=== PATIENT | male | born 1950 | race Caucasian/White ===

== ENCOUNTER 2017-09-17 09:02 | Day surgery (SDC) | payer MEDICARE, OTHER ==
[~2017-09-17] VITALS: Ht 177.8 cm; Wt 54.5 kg
[2017-09-17 09:18] VITALS: BP 77/53; PULSE 83; RESP 20; TEMP 97.7; O2SAT 99
[2017-09-17] MEDS ORDERED: FERR300S PO (09:28)
[2017-09-17] MEDS ORDERED: MELA5 PO (09:28)
[2017-09-17] MEDS ORDERED: DIPH25TA5 PO (09:28)
[2017-09-17] MEDS ORDERED: ERGO2000 PO (09:28)
[2017-09-17] MEDS ORDERED: LACT10SO PO (09:28)
[2017-09-17] MEDS ORDERED: VITA80003 PO (09:28)
[2017-09-17] MEDS ORDERED: ATOR20TA15 PO (09:28)
[2017-09-17] MEDS ORDERED: PROT40TA PO (09:28)
[2017-09-17] MEDS ORDERED: VITA200C3 PO (09:28)
[2017-09-17] MEDS ORDERED: SODIUM CHLOR 0.9% 1000 ML IV SCH (09:30)
[2017-09-17 10:03] LABS: AUTOMATED NEUTROPHIL # 3.9 TH/MM3 (1.8-7.7); BASOPHIL % 0.5 % (0.0-2.0); EOSINOPHIL # 0.1 TH/MM3 (0-0.4); EOSINOPHIL % 1.2 % (0.0-4.0); HEMATOCRIT 24.4 % (39.0-51.0); HEMOGLOBIN 8.8 GM/DL (13.0-17.0); LYMPH % 6.2 % (9.0-44.0); LYMPHOCYTE # 0.3 TH/MM3 (1.0-4.8); MEAN CELL VOLUME 93.4 FL (80.0-100.0); MEAN CORPUSCULAR HEMOGLOBIN 33.6 PG (27.0-34.0); MEAN PLATELET VOLUME 7.1 FL (7.0-11.0); MONO % 9.7 % (0.0-8.0); MONOCYTE # 0.5 TH/MM3 (0-0.9); NEUT % 82.4 % (16.0-70.0); PLATELET COUNT 42 TH/MM3 (150-450); RED BLOOD COUNT 2.61 MIL/MM3 (4.50-5.90); RED CELL DISTRIBUTION WIDTH 22.3 % (11.6-17.2); WHITE BLOOD COUNT 4.7 TH/MM3 (4.0-11.0)
== END 2017-09-17 10:45 | disposition home or self-care (01) ==
LOC: HRAD 09:02 → HRIP 09:06 → HRAD 10:45
PROVIDERS: ATTEND Internal Medicine Hematology & Oncology
DX: R16.0 Hepatomegaly, not elsewhere classified (principal); Z53.9 Procedure and treatment not carried out, unspecified reason
CPT/HCPCS: 85025; G0463; 99211

== ENCOUNTER 2017-09-26 07:51 | Inpatient (IN) | payer MEDICARE, OTHER ==
[~2017-09-26] VITALS: Ht 177.8 cm; Wt 75.3 kg
[2017-09-26] VITALS (25 sets, daily range): BP systolic 77–137; BP diastolic 41–84; PULSE 52–98; RESP 14–33; TEMP 94.3–98.9; O2SAT 96–100
[~2017-09-26 07:51] MED LIST: ATOR20TA15 PO; DIPH25TA5 PO; ERGO2000 PO; FERR300S PO; LACT10SO PO; MELA5 PO; PROT40TA PO; VITA200C3 PO; VITA80003 PO
[2017-09-26] MEDS ORDERED: PANTOPRAZOLE SODIUM 40 MG VIAL IVP ONE (08:15)
[2017-09-26] MEDS ORDERED: SODIUM CHLORIDE 0.9% FLUSH 10 ML FLUSH IV FLUSH PRN ×2 (08:15→10:00)
[2017-09-26] MEDS ORDERED: ONDANSETRON HCL 4 MG/2 ML VIAL IVP ONE (08:15)
--- NOTE | 2017-09-26 08:22 | PD ---
HPI Chief Complaint: GI Complaint Time Seen by Provider: 08:18 Travel History International Travel<30 days: No Contact w/Intl Traveler<30days: No Traveled to known affect area: No History of Present Illness HPI 67-year-old male patient with history of esophageal varices, ascites, recent diagnosis of hepatic cancer, following up with Dr. Nixon, here because of vomiting since last night, vomited maroon colored blood this morning according to his . He denies any abdominal pain, diarrhea, fevers, or other symptoms. He denies any black stools. Modifying Factors: None Associated Signs & Symptoms: Vomiting, vomiting blood Risk Factors: Esophageal varices, hepatic cancer, ascites PFSH Past Medical History Cancer: Yes (LIVER ) Cardiac Catheterization: Yes Cardiovascular Problems: Yes High Cholesterol: Yes Cirrhosis: Yes Coronary Artery Disease: Yes Diabetes: Yes Patient Takes Glucophage: No Diminished Hearing: No Gastrointestinal Disorders: Yes (esophageal varacies,ASCITES , PARACENTHESIS ) GERD: Yes Hypertension: Yes Immunizations Current: Yes Ulcer: Yes Tetanus Vaccination: Unknown Influenza Vaccination: Yes Past Surgical History Abdominal Surgery: Yes (inguinal hernia) Cardiac Surgery: Yes (heart stent December 2016) Coronary Stent: Yes (X1 12/2016) Ear Surgery: Yes (lasix ) Social History Alcohol Use: No Tobacco Use: No (QUIT 5 YEARS AGO ) Substance Use: No Allergies-Medications (Allergen,Severity, Reaction): Coded Allergies: spironolactone (Verified Adverse Reaction, Unknown, 09/26/17) BREAST TENDERNESS Reported Meds & Prescriptions Reported Meds & Active Scripts Active Reported Diphenhydramine HCl 25 Mg Tablet 1 Tab PO HS Vitamin E 200 Unit Cap 400 Units PO DAILY Melatonin 5 Mg Tab 5 Mg PO HS Vitamin A 8,000 Unit Capsule 1 Cap PO DAILY Vitamin D2 (Ergocalciferol) 2,000 Unit Tab 50,000 Units PO DIRECTED M-W- Lactulose Liq (Lactulose) 10 Gm/15 Ml Soln 30 Ml PO TID Protonix (Pantoprazole Sodium) 40 Mg Tab 40 Mg PO BID Review of Systems Except as stated in HPI: all other systems reviewed are Neg Physical Exam Narrative GENERAL: Well-developed elderly male patient currently in mild distress. Awake and oriented 3. SKIN: Focused skin assessment warm/dry. HEAD: Atraumatic. Normocephalic. EYES: Pupils equal and round. No scleral icterus. No injection or drainage. ENT: No nasal bleeding or discharge. Mucous membranes pink and moist. NECK: Trachea midline. No JVD. Supple. CARDIOVASCULAR: Regular rate and rhythm. No murmur appreciated. RESPIRATORY: No accessory muscle use. Clear to auscultation. Breath sounds equal bilaterally. GASTROINTESTINAL: Abdomen soft, non-tender, moderately distended. Hepatic and splenic margins not palpable. MUSCULOSKELETAL: No obvious deformities. No clubbing. No cyanosis. No edema. NEUROLOGICAL: Awake and alert. No obvious cranial nerve deficits. Motor grossly within normal limits. Normal speech. PSYCHIATRIC: Appropriate mood and affect; insight and judgment normal. Data Data Last Documented VS Vital Signs Date Time Temp Pulse Resp B/P (MAP) Pulse Ox O2 Delivery O2 Flow Rate FiO2 09/26/17 07:52 97.5 86 14 82/53 (63) 100 Orders Orders Complete Blood Count With Diff (09/26/17 08:12) Comprehensive Metabolic Panel (09/26/17 08:12) Lipase (09/26/17 08:12) Prothrombin Time / Inr (Pt) (09/26/17 08:12) Act Partial Throm Time (Ptt) (09/26/17 08:12) Urinalysis - C+S If Indicated (09/26/17 08:12) Iv Access Insert/Monitor (09/26/17 08:12) Ecg Monitoring (09/26/17 08:12) Oximetry (09/26/17 08:12) Ondansetron Inj (Zofran Inj) (09/26/17 08:15) Pantoprazole Inj (Protonix Inj) (09/26/17 08:15) Sodium Chloride 0.9% Flush (Ns Flush) (09/26/17 08:15) Sodium Chlor 0.9% 1000 Ml Inj (Ns 1000 M (09/26/17 08:30) Type And Screen (09/26/17 08:18) Red Blood Cells (Rbc) (09/26/17 08:37) Blood Product Administration (09/26/17 08:37) Sodium Chloride 0.9... W/Pantoprazole In (09/26/17 08:37) Platelet Pheresis (09/26/17 09:02) Blood Product Administration (09/26/17 09:02) Sodium Chlor 0.9% 250 Ml Inj (Ns 250 Ml (09/26/17 09:15) Admit Order (Ed Use Only) (09/26/17 09:31) Labs Laboratory Tests Test 09/26/17 08:12 White Blood Count 9.0 TH/MM3 Red Blood Count 1.86 MIL/MM3 Hemoglobin 6.3 GM/DL Hematocrit 17.7 % Mean Corpuscular Volume 95.2 FL Mean Corpuscular Hemoglobin 33.9 PG Mean Corpuscular Hemoglobin Concent 35.6 % Red Cell Distribution Width 23.0 % Platelet Count 59 TH/MM3 Mean Platelet Volume 7.6 FL Neutrophils (%) (Auto) 90.9 % Lymphocytes (%) (Auto) 3.4 % Monocytes (%) (Auto) 5.0 % Eosinophils (%) (Auto) 0.3 % Basophils (%) (Auto) 0.4 % Neutrophils # (Auto) 8.2 TH/MM3 Lymphocytes # (Auto) 0.3 TH/MM3 Monocytes # (Auto) 0.5 TH/MM3 Eosinophils # (Auto) 0.0 TH/MM3 Basophils # (Auto) 0.0 TH/MM3 CBC Comment AUTO DIFF Differential Comment AUTO DIFF CONFIRMED Platelet Estimate LOW Platelet Morphology Comment NORMAL Ovalocytes 1+ Prothrombin Time 13.7 SEC Prothromb Time International Ratio 1.4 RATIO Activated Partial Thromboplast Time 34.8 SEC Blood Urea Nitrogen 96 MG/DL Creatinine 4.34 MG/DL Random Glucose 144 MG/DL Total Protein 6.6 GM/DL Albumin 2.3 GM/DL Calcium Level 8.1 MG/DL Alkaline Phosphatase 157 U/L Aspartate Amino Transf (AST/SGOT) 33 U/L Alanine Aminotransferase (ALT/SGPT) 33 U/L Total Bilirubin 1.2 MG/DL Sodium Level 130 MEQ/L Potassium Level 4.1 MEQ/L Chloride Level 100 MEQ/L Carbon Dioxide Level 16.2 MEQ/L Anion Gap 14 MEQ/L Estimat Glomerular Filtration Rate 14 ML/MIN Lipase 196 U/L MDM Medical Decision Making Medical Screen Exam Complete: Yes Emergency Medical Condition: Yes Medical Record Reviewed: Yes Interpretation(s) Laboratory Tests Test 09/26/17 08:12 Red Blood Count 1.86 MIL/MM3 (4.50-5.90) Hemoglobin 6.3 GM/DL (13.0-17.0) Hematocrit 17.7 % (39.0-51.0) Red Cell Distribution Width 23.0 % (11.6-17.2) Platelet Count 59 TH/MM3 (150-450) Neutrophils (%) (Auto) 90.9 % (16.0-70.0) Lymphocytes (%) (Auto) 3.4 % (9.0-44.0) Neutrophils # (Auto) 8.2 TH/MM3 (1.8-7.7) Lymphocytes # (Auto) 0.3 TH/MM3 (1.0-4.8) Platelet Estimate LOW (NORMAL) Ovalocytes 1+ (NORMAL) Prothrombin Time 13.7 SEC (9.8-11.6) Activated Partial Thromboplast Time 34.8 SEC (24.3-30.1) Blood Urea Nitrogen 96 MG/DL (7-18) Creatinine 4.34 MG/DL (0.60-1.30) Random Glucose 144 MG/DL (74-106) Albumin 2.3 GM/DL (3.4-5.0) Calcium Level 8.1 MG/DL (8.5-10.1) Alkaline Phosphatase 157 U/L (45-117) Total Bilirubin 1.2 MG/DL (0.2-1.0) Sodium Level 130 MEQ/L (136-145) Carbon Dioxide Level 16.2 MEQ/L (21.0-32.0) Estimat Glomerular Filtration Rate 14 ML/MIN (>89) Differential Diagnosis Vomiting, vomiting blood: Gastritis versus gastroenteritis versus GI bleed Narrative Course Lab work shows significant anemia. According to patient's , his hemoglobin has been even lower before, and he is supposed to get a transfusion this morning and use marijuana. Patient was given IV fluids, Protonix, 2 units of PRBCs were ordered and platelets were ordered due to low platelet counts as well. At this point, my plan would be to admit him for further evaluation by GI as well. He was started on Protonix drip. Case is discussed with family practice resident service for admission. Diagnosis Primary Impression: GI bleed Additional Impressions: Anemia Thrombocytopenia Admitting Information Admitting Physician Requests: Admit Melinda Rivera MD Sep 26, 2017 08:22
[2017-09-26 08:30] LABS: AUTOMATED NEUTROPHIL # 8.2 TH/MM3 (1.8-7.7); BASOPHIL % 0.4 % (0.0-2.0); EOSINOPHIL % 0.3 % (0.0-4.0); LYMPH % 3.4 % (9.0-44.0); LYMPHOCYTE # 0.3 TH/MM3 (1.0-4.8); MEAN CELL VOLUME 95.2 FL (80.0-100.0); MEAN CORPUSCULAR HEMOGLOBIN 33.9 PG (27.0-34.0); MEAN CORPUSCULAR HGB CONC 35.6 % (32.0-36.0); MEAN PLATELET VOLUME 7.6 FL (7.0-11.0); MONOCYTE # 0.5 TH/MM3 (0-0.9); NEUT % 90.9 % (16.0-70.0); PLATELET COUNT 59 TH/MM3 (150-450); RED BLOOD COUNT 1.86 MIL/MM3 (4.50-5.90)
[2017-09-26] MEDS ORDERED: SODIUM CHLOR 0.9% 1000 ML INJ 1,000 ML IV ONE ×2 (08:30→14:00)
[2017-09-26 08:38] LABS: HEMATOCRIT 17.7 % (39.0-51.0); HEMOGLOBIN 6.3 GM/DL (13.0-17.0)
[2017-09-26 08:39] LABS: ALBUMIN 2.3 GM/DL (3.4-5.0); AST (GOT) 33 U/L (15-37); BICARBONATE 16.2 MEQ/L (21.0-32.0); BLOOD UREA NITROGEN 96 MG/DL (7-18); CALCIUM 8.1 MG/DL (8.5-10.1); CHLORIDE 100 MEQ/L (98-107); CREATININE 4.34 MG/DL (0.60-1.30); GLOMERULAR FILTRATION RATE 14 ML/MIN (>89); GLUCOSE,RANDOM 144 MG/DL (74-106); SODIUM (NA) 130 MEQ/L (136-145)
[2017-09-26 08:41] LABS: ALT (GPT) 33 U/L (12-78); INTERNATIONAL NORMALIZED RATIO 1.4 RATIO; PROTHROMBIN TIME - PATIENT 13.7 SEC (9.8-11.6)
[2017-09-26 08:42] LABS: ALKALINE PHOSPHATASE 157 U/L (45-117); TOTAL BILIRUBIN ADULT 1.2 MG/DL (0.2-1.0); TOTAL PROTEIN 6.6 GM/DL (6.4-8.2)
[2017-09-26 09:09] LABS: OVALOCYTES 1+ (NORMAL)
[2017-09-26] MEDS ORDERED: SODIUM CHLOR 0.9% 250 ML INJ 250 ML IV ONE (09:15)
--- NOTE | 2017-09-26 09:49 | HHI.HP ---
HPI Service Family Medicine Primary Care Physician Unknown Admission Diagnosis GI bleed/anemia Diagnoses: International Travel<30 Days: No Contact w/Intl Traveler<30days: No Known Affected Area: No History of Present Illness 67-year-old male patient with history of esophageal varices, ascites, recent diagnosis of hepatic cancer, following up with Dr. Nixon, presents to the ED with hematemesis Accompanied by , who provides all of the history. Reports that he has been weak and dizziness for the last couple of days. Had 2x episodes of maroon-colored vomiting, reports he vomited up about 1 cup each time. His blood pressure was 80/44 at home last night, but patient refused to go to the hospital. This morning when he woke up, he felt lightheaded while sitting on the toilet and yanked the towel bar out of the wall to catch himself. The sound woke his up. was concerned and brought patient immediately to the hospital. reports that he had an appointment to get transfused today, PET scan on Sunday, and liver biopsy next Sunday. Hemoglobin normally around mid 7s, lowest 3.7 per . He denies any abdominal pain, diarrhea, fevers, and melena. (Vida Beal MD R1) Review of Systems Constitutional: COMPLAINS OF: Weight loss (drop 50 lbs since december), DENIES: Fever Eyes: DENIES: Vision loss Ears, nose, mouth, throat: DENIES: Running Nose Respiratory: DENIES: Shortness of breath Cardiovascular: DENIES: Chest pain Gastrointestinal: COMPLAINS OF: Nausea, Vomiting, DENIES: Abdominal pain Genitourinary: DENIES: Dysuria Musculoskeletal: DENIES: Muscle aches Integumentary: DENIES: Rash Neurologic: COMPLAINS OF: Headache (Vida Beal MD R1) Past Family Social History Past Medical History Hepatocellular liver cancer with cholangio markers, MELD score of 28 Heavy drinker, quit 13 years ago HTN DM, was on metformin and glipizide, last Alc 5.4%, off meds for about 6months Esophageal varices bleed 4 years ago, was banded Past Surgical History Kidney removal when younger inguinal repair Rotator cuff repair right shoulder (Vida Beal MD R1) Allergies: Coded Allergies: spironolactone (Verified Adverse Reaction, Unknown, 2/14/18) BREAST TENDERNESS Family History Mom- hx of heart disease- living at 84 Brother- younger [place]- 49 Dad-86, living, bladder cancer Brother- 64, [place] living Social History Lives with in [facility]- 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 HEAD: Atraumatic. Normocephalic. No temporal or scalp tenderness. EYES: Pupils equal round and reactive. Extraocular motions intact. Pallor conjunctiva. No sclera iterus. ENT: Nose without bleeding, purulent drainage or septal hematoma. Throat without erythema, tonsillar hypertrophy or exudate. Uvula midline. Airway patent. NECK: Trachea midline. No JVD or lymphadenopathy. Supple, nontender, no meningeal signs. CARDIOVASCULAR: Regular rate and rhythm without murmurs, gallops, or rubs. RESPIRATORY: Clear to auscultation. Breath sounds equal bilaterally. No wheezes , rales, or rhonchi. GASTROINTESTINAL: Distended abdomen, ascites present, + BS MUSCULOSKELETAL: Extremities without clubbing, cyanosis, or edema. No joint tenderness, effusion, or edema noted. NEUROLOGICAL: Awake and alert. Cranial nerves II through XII intact. Motor and sensory grossly within normal limits. Five out of 5 muscle strength in all muscle groups. Normal speech. Laboratory Laboratory Tests Test 09/26/17 08:12 White Blood Count 9.0 Red Blood Count 1.86 Hemoglobin 6.3 Hematocrit 17.7 Mean Corpuscular Volume 95.2 Mean Corpuscular Hemoglobin 33.9 Mean Corpuscular Hemoglobin Concent 35.6 Red Cell Distribution Width 23.0 Platelet Count 59 Mean Platelet Volume 7.6 Neutrophils (%) (Auto) 90.9 Lymphocytes (%) (Auto) 3.4 Monocytes (%) (Auto) 5.0 Eosinophils (%) (Auto) 0.3 Basophils (%) (Auto) 0.4 Neutrophils # (Auto) 8.2 Lymphocytes # (Auto) 0.3 Monocytes # (Auto) 0.5 Eosinophils # (Auto) 0.0 Basophils # (Auto) 0.0 CBC Comment AUTO DIFF Differential Comment AUTO DIFF CONFIRMED Platelet Estimate LOW Platelet Morphology Comment NORMAL Ovalocytes 1+ Prothrombin Time 13.7 Prothromb Time International Ratio 1.4 Activated Partial Thromboplast Time 34.8 Blood Urea Nitrogen 96 Creatinine 4.34 Random Glucose 144 Total Protein 6.6 Albumin 2.3 Calcium Level 8.1 Alkaline Phosphatase 157 Aspartate Amino Transf (AST/SGOT) 33 Alanine Aminotransferase (ALT/SGPT) 33 Total Bilirubin 1.2 Sodium Level 130 Potassium Level 4.1 Chloride Level 100 Carbon Dioxide Level 16.2 Anion Gap 14 Estimat Glomerular Filtration Rate 14 Lipase 196 (Vida Beal MD R1) Result Diagram: 09/26/1781109/26/17811 Caprini VTE Risk Assessment Caprini VTE Risk Assessment: Mod/High Risk (score >= 2) Caprini Risk Assessment Model Point Value = 1 Point Value = 2 Point Value = 3 Point Value = 5 Age 41-60 Minor surgery BMI > 25 kg/m2 Swollen legs Varicose veins or History of unexplained or recurrent spontaneous Oral contraceptives or hormone replacement Sepsis (< 1 month) Serious lung disease, including pneumonia (< 1 month) Abnormal pulmonary function Acute myocardial infarction Congestive heart failure (< 1 month) History of inflammatory bowel disease Medical patient at bed rest Age 61-74 Arthroscopic surgery Major open surgery (> 45 min) Laparoscopic surgery (> 45 min) Malignancy Confined to bed (> 72 hours) Immobilizing plaster cast Central venous access Age >= 75 History of VTE Family history of VTE Factor V Leiden Prothrombin [id number] Lupus anticoagulant Anticardiolipin antibodies Elevated serum homocysteine Heparin-induced thrombocytopenia Other congenital or acquired thrombophilia Stroke (< 1 month) Elective arthroplasty Hip, pelvis, or leg fracture Acute spinal cord injury (< 1 month) Prophylaxis Regimen Total Risk Factor Score Risk Level Prophylaxis Regimen 0-1 Low Early ambulation 2 Moderate Order ONE of the following: *Sequential Compression Device (SCD) *Heparin 5000 units SQ BID 3-4 Higher Order ONE of the following medications: *Heparin 5000 units SQ TID *Enoxaparin/Lovenox 40 mg SQ daily (WT < 150 kg, CrCl > 30 mL/min) *Enoxaparin/Lovenox 30 mg SQ daily (WT < 150 kg, CrCl > 10-29 mL/min) *Enoxaparin/Lovenox 30 mg SQ BID (WT < 150 kg, CrCl > 30 mL/min) AND/OR *Sequential Compression Device (SCD) 5 or more Highest Order ONE of the following medications: *Heparin 5000 units SQ TID (Preferred with Epidurals) *Enoxaparin/Lovenox 40 mg SQ daily (WT < 150 kg, CrCl > 30 mL/min) *Enoxaparin/Lovenox 30 mg SQ daily (WT < 150 kg, CrCl > 10-29 mL/min) *Enoxaparin/Lovenox 30 mg SQ BID (WT < 150 kg, CrCl > 30 mL/min) AND *Sequential Compression Device (SCD) (Vida Beal MD R1) Assessment and Plan Assessment and Plan 67-year-old male patient with history of esophageal varices, ascites, recent diagnosis of hepatocellular carcinoma, following up with Dr. Nixon, presents to the ED with hematemesis. Patient transferred to ICU due to significant hypotension. Code Status DNR: after further discussion, agreeable to intubation for necessary EGD procedure Discussed Condition With Dr. Martini and Dr. Myers (Vida Beal MD R1) Attending Attestation Patient seen and examined. Case reviewed and discussed with the resident team. Agree with plan of care as discussed with me and documented in the resident note. Pt seen on admission in ED. He is very ill with his cirrhosis at baseline. Any bleeding can be extremely dangerous as his platelets are low and with a meld score of 28, there can be clotting problems regardless. Unfortunately, he became very hypotensive in the ED despite boluses of NS. His lowest pressures were 70s over 30s. His pulse was not rapid. [place] [facility] [place] care and monitoring. (Lala Myers MD) Problem List: (1) Upper GI bleed ICD Codes: K92.2 - Gastrointestinal hemorrhage, unspecified Plan: 2 day hx of hematemesis, suspected upper GI bleed H/H 6.3/17.7 Plt 59 AST/ALT wnl BP responsive after fluid boluses H/H q6h Type and Screen ordered 2 units of RBCs and 1 unit of plts ordered Octreotide Drip and Protonix drip ordered Rocephin 1,000mg IV q24h (started 09/26) Ondansetron for N/V NS IV 115mls/hr GI and Digital Music Instructor consulted, recommendations appreciated -EGD today, patient agreeable to intubation for procedure (2) Anemia ICD Codes: D64.9 - Anemia, unspecified Status: Acute Plan: Secondary to upper GI bleed See plan above (3) Thrombocytopenia ICD Codes: D69.6 - Thrombocytopenia, unspecified Status: Acute Plan: Plt 59 1 unit of plt ordered continue to monitor (4) Nutrition, metabolism, and development symptoms ICD Codes: R63.8 - Other symptoms and signs concerning food and fluid intake Plan: Diet: NPO Fluids: NS 115mls/hr vitals q4h, monitor I& Os, cardiac telemetry DVT ppx: SCDs (Vida Beal MD R1) Physician Certification 2 Midnight Certification Type: Admission for Inpatient Services Order for Inpatient Services The services are ordered in accordance with Medicare regulations or non- Medicare payer requirements, as applicable. In the case of services not specified as inpatient-only, they are appropriately provided as inpatient services in accordance with the 2-midnight benchmark. Estimated LOS (days): 2 2 days is the estimated time the patient will need to remain in the hospital, assuming treatment plan goals are met and no additional complications. Post-Hospital Plan: Not yet determined (Vida Beal MD R1) Vida Beal MD R1 Sep 26, 2017 09:49 Lala Myers MD Sep 27, 2017 12:52
[2017-09-26] MEDS ORDERED: ACETAMINOPHEN 325 MG TAB PO PRN (10:00)
[2017-09-26] MEDS ORDERED: ONDANSETRON HCL 4 MG/2 ML VIAL IV PUSH PRN (10:00)
[2017-09-26] MEDS ORDERED: VITAMIN A PO SCH (10:00)
[2017-09-26] MEDS: PANTOPRAZOLE INJ 80 MG in SODIUM CHLORIDE 0.9% INJ 100 ML IV SCH ×2 (10:22→22:23)
[2017-09-26] MEDS: VITAMIN E 400 UNIT CAP PO SCH (12:00)
[2017-09-26] MEDS ORDERED: LIDOCAINE HCL 1% PF 5 ML SYRINGE OTHER ONE (12:00)
[2017-09-26] MEDS ORDERED: PROPOFOL 200 MG/20 ML AMP IV ONE (12:00)
--- NOTE | 2017-09-26 12:43 | PD.CONS ---
HPI History of Present Illness This is a 67 year old male with recent dx HCC who presented with weakness, hematemesis. He has been having abd distention and last night started vomiting red blood. Denies abd pain, blood in stool, black tarry stool. He was recently diagnosed with HCC at [facility]. He has paracenteses every 2 weeks. Last EGD was 3 y ago in [place] and per pt no abnormal findings. Per EMR he had EGD with banding varices 4 years ago. he does not know when his last colonoscopy was. Denies ETOH use currently. Limited historian. (Delmis Reina) PFSH Past Medical History cirrhosis HCC HTN DM esophageal varices Past Surgical History nephrectomy hernia repair repiar right rotator cuff (Delmis Reina) Coded Allergies: spironolactone (Verified Adverse Reaction, Unknown, 09/26/17) BREAST TENDERNESS Family History CVD MD bladder Ca Social History quit drinking 13 years ago quit smoking 5 y ago denies illicit drug use (Delmis Reina) Review of Systems Constitutional: COMPLAINS OF: Fatigue, Dizziness Gastrointestinal: COMPLAINS OF: Nausea, Vomiting, Swelling of Abdomen, Hematemesis, DENIES: Abdominal pain, Black stools, Bloody stools Genitourinary: DENIES: Hematuria Integumentary: DENIES: Jaundice otherwise noncontributory (Delmis Reina) GI Exam Vitals I&O Vital Signs Date Time Temp Pulse Resp B/P (MAP) Pulse Ox O2 Delivery O2 Flow Rate FiO2 09/26/17 12:20 98.0 73 17 92/55 97 09/26/17 12:06 99 21 09/26/17 12:04 97.9 75 16 86/51 97 09/26/17 11:20 75 16 77/47 (57) 97 Room Air 09/26/17 10:50 65 15 77/41 (53) 97 Room Air 09/26/17 10:20 72 17 81/51 (61) 97 Room Air 09/26/17 09:45 52 17 87/49 (62) 98 Room Air 09/26/17 07:52 97.5 86 14 82/53 (63) 100 Laboratory Test 09/26/17 08:12 White Blood Count 9.0 TH/MM3 Red Blood Count 1.86 MIL/MM3 Hemoglobin 6.3 GM/DL Hematocrit 17.7 % Mean Corpuscular Volume 95.2 FL Mean Corpuscular Hemoglobin 33.9 PG Mean Corpuscular Hemoglobin Concent 35.6 % Red Cell Distribution Width 23.0 % Platelet Count 59 TH/MM3 Mean Platelet Volume 7.6 FL Neutrophils (%) (Auto) 90.9 % Lymphocytes (%) (Auto) 3.4 % Monocytes (%) (Auto) 5.0 % Eosinophils (%) (Auto) 0.3 % Basophils (%) (Auto) 0.4 % Neutrophils # (Auto) 8.2 TH/MM3 Lymphocytes # (Auto) 0.3 TH/MM3 Monocytes # (Auto) 0.5 TH/MM3 Eosinophils # (Auto) 0.0 TH/MM3 Basophils # (Auto) 0.0 TH/MM3 CBC Comment AUTO DIFF Differential Comment AUTO DIFF CONFIRMED Platelet Estimate LOW Platelet Morphology Comment NORMAL Ovalocytes 1+ Prothrombin Time 13.7 SEC Prothromb Time International Ratio 1.4 RATIO Activated Partial Thromboplast Time 34.8 SEC Fibrinogen 239 mg/dL Blood Urea Nitrogen 96 MG/DL Creatinine 4.34 MG/DL Random Glucose 144 MG/DL Total Protein 6.6 GM/DL Albumin 2.3 GM/DL Calcium Level 8.1 MG/DL Alkaline Phosphatase 157 U/L Aspartate Amino Transf (AST/SGOT) 33 U/L Alanine Aminotransferase (ALT/SGPT) 33 U/L Total Bilirubin 1.2 MG/DL Sodium Level 130 MEQ/L Potassium Level 4.1 MEQ/L Chloride Level 100 MEQ/L Carbon Dioxide Level 16.2 MEQ/L Anion Gap 14 MEQ/L Estimat Glomerular Filtration Rate 14 ML/MIN Lipase 196 U/L Physical Examination HEENT: PERRL; normocephalic; atraumatic; no jaundice. CHEST: CTA CARDIAC: RRR ABDOMEN: Soft, distended with ascites, nontender; bowel sounds soft EXTREMITIES: No clubbing, cyanosis, or edema. SKIN: Normal; no rash; no jaundice. MANAGER ARCHITECTURE: mildly lethargic (Delmis Reina) Assessment and Plan Plan ASSESSMENT - hematemesis - last night onset hematemesis. hx esophageal varices. per pt last EGD 3 y ago and normal per EMR he had EGD and banding varices 4 y ago - anemia - hgb 6.3 on admission, normocytic. likely multifactorial - coagulopathy - INR 1.4 - cirrhosis, HCC PT is DNR PLAN - EGD today - obtain consent - NPO - octreotide - protonix gtt - transfuse PRBC & FFP - d/w [facility] - further recs to follow pt seen by myself and Dr Greenberg and this note is written on his behalf (Delmis Reina) Physician Comments Patient seen and examined Agree with above Continue current supportive care Monitor labs We will proceed with an endoscopy next (Mukul Greenberg MD) Delmis Reina Sep 26, 2017 12:43 Mukul Greenberg MD Sep 26, 2017 20:19
[2017-09-26] MEDS: LACTULOSE SYRUP 20 GM/30 ML CUP PO SCH ×2 (13:00→18:00)
[2017-09-26] MEDS ORDERED: OCTREOTIDE INJ 50 MCG/ML AMP IV PUSH ONE (13:30)
[2017-09-26] MEDS: cefTRIAXone INJ 1,000 MG in SODIUM CHLORIDE 0.9% INJ 100 ML IV SCH (14:00)
--- NOTE | 2017-09-26 14:45 | PD.CONS ---
[facility] Service Critical Care Medicine Consult Requested By Dr. Myers Reason for Consult Upper GIB, r/o variceal bleed Anemia requiring transfusion Hypotension Coagulopathy, thrombocytopenia Ascites Acute kidney failure Primary Care Physician Unknown History of Present Illness Patient is a 67 year old male with past medical history significant for hepatocellular carcinoma, liver cirrhosis, previous variceal bleed status post banding 4 years ago, history of nephrectomy, hypertension diabetes who presented to the ED with feeling weak and dizzy for the last 2 days and the hematemesis since yesterday evening. He has not had any episodes of hematemesis today. His hemoglobin was 6.3 with hematocrit 17.7. Initial blood pressure was 82/53. Patient received crystalloid fluid boluses. And was also ordered to receive 2 units of PRBC and 1 packed unit of platelet, platelet count 59. BUN/creat 96/4.34. Patient was also started on Protonix infusion. Patient was admitted to [facility] with consult critical care I evaluated the patient in the emergency department, patient is borderline hypotensive and lethargic but awake alert and follows commands. 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 Last endoscopy was about 3 years ago gets ascites drained every two weeks. I have placed order for Octreotide infusion, and ordered 2 units of FFP. Discussed with Dr. Greenberg who is planning to do upper endoscopy today. Was also noted on the bedside ultrasound that the patient has significant ascites Review of Systems ROS Limitations: Other Past Family Social History Allergies: Coded Allergies: spironolactone (Verified Adverse Reaction, Unknown, 09/26/17) BREAST TENDERNESS Past Medical History Liver cirrhosis Hepatocellular carcinoma DM-2 Hypertension Nephrectomy HTN DM Esophageal varices bleed 4 years ago, s/p banded Past Surgical History Inguinal hernia repair Nephrectomy Inguinal repair Rotator cuff repair right shoulder Reported Medications Diphenhydramine HCl 25 Mg Tablet 1 Tab PO HS Vitamin E 200 Unit Cap 400 Units PO DAILY Melatonin 5 Mg Tab 5 Mg PO HS Vitamin A 8,000 Unit Capsule 1 Cap PO DAILY Vitamin D2 (Ergocalciferol) 2,000 Unit Tab 50,000 Units PO DIRECTED Lactulose Liq (Lactulose) 10 Gm/15 Ml Soln 30 Ml PO TID Protonix (Pantoprazole Sodium) 40 Mg Tab 40 Mg PO BID Active Ordered Medications On Protonix and octreotide gtt Family History Mother and brother has history of heart disease Father has history of bladder cancer Social History Quit 5 years ago, 40 years, 1 ppd Used to drink heavily, quit 13 years ago Physical Exam Vital Signs Vital Signs Date Time Temp Pulse Resp B/P (MAP) Pulse Ox O2 Delivery O2 Flow Rate FiO2 09/26/17 13:57 09/26/17 13:05 98.0 63 16 90/51 96 09/26/17 12:51 98.0 75 17 102/64 97 09/26/17 12:39 98.0 64 17 101/62 97 09/26/17 12:20 98.0 73 17 92/55 97 09/26/17 12:06 99 21 09/26/17 12:04 97.9 75 16 86/51 97 09/26/17 11:20 75 16 77/47 (57) 97 Room Air 09/26/17 10:50 65 15 77/41 (53) 97 Room Air 09/26/17 10:20 72 17 81/51 (61) 97 Room Air 09/26/17 09:45 52 17 87/49 (62) 98 Room Air 09/26/17 07:52 97.5 86 14 82/53 (63) 100 Physical Exam GENERAL: This is a well-nourished, well-developed patient, slightly lethargic, hypotensive. Pale SKIN: Cool and dry. Pale HEAD: Atraumatic. Normocephalic. EYES: Pupils equal round and reactive.No scleral icterus. No injection or drainage. ENT: Nose without bleeding, Airway patent. NECK: Trachea midline. No JVD or lymphadenopathy. Supple, nontender, no meningeal signs. CARDIOVASCULAR: Regular rate and rhythm without murmurs, gallops, or rubs. Slightly hypotensive RESPIRATORY: Clear to auscultation. Breath sounds equal bilaterally. No wheezes , rales, or rhonchi. GASTROINTESTINAL: Abdomen soft, non-tender, nondistended. +ve ascites, Large amount on ascites on bedside US MUSCULOSKELETAL: Extremities without clubbing, cyanosis NEUROLOGICAL: Awake and alert. Motor and sensory grossly within normal limits. Laboratory Laboratory Tests Test 09/26/17 08:12 White Blood Count 9.0 Red Blood Count 1.86 Hemoglobin 6.3 Hematocrit 17.7 Mean Corpuscular Volume 95.2 Mean Corpuscular Hemoglobin 33.9 Mean Corpuscular Hemoglobin Concent 35.6 Red Cell Distribution Width 23.0 Platelet Count 59 Mean Platelet Volume 7.6 Neutrophils (%) (Auto) 90.9 Lymphocytes (%) (Auto) 3.4 Monocytes (%) (Auto) 5.0 Eosinophils (%) (Auto) 0.3 Basophils (%) (Auto) 0.4 Neutrophils # (Auto) 8.2 Lymphocytes # (Auto) 0.3 Monocytes # (Auto) 0.5 Eosinophils # (Auto) 0.0 Basophils # (Auto) 0.0 CBC Comment AUTO DIFF Differential Comment AUTO DIFF CONFIRMED Platelet Estimate LOW Platelet Morphology Comment NORMAL Ovalocytes 1+ Prothrombin Time 13.7 Prothromb Time International Ratio 1.4 Activated Partial Thromboplast Time 34.8 Fibrinogen 239 Blood Urea Nitrogen 96 Creatinine 4.34 Random Glucose 144 Total Protein 6.6 Albumin 2.3 Calcium Level 8.1 Alkaline Phosphatase 157 Aspartate Amino Transf (AST/SGOT) 33 Alanine Aminotransferase (ALT/SGPT) 33 Total Bilirubin 1.2 Sodium Level 130 Potassium Level 4.1 Chloride Level 100 Carbon Dioxide Level 16.2 Anion Gap 14 Estimat Glomerular Filtration Rate 14 Lipase 196 Result Diagram: 09/26/17 0812 09/26/17811 Septic Shock Reassessment Septic shock perfusion: reassessment completed Assessment and Plan Assessment and Plan ASSESSMENT: Upper GIB, r/o variceal bleed Anemia requiring transfusion Hypotension Coagulopathy, thrombocytopenia Ascites Acute kidney failure Liver cirrhosis Hepatocellular carcinoma History of alcohol dependence History of nephrectomy PLAN: NEURO: -Minimize sedation, check ammonia level Lactulose after EGD, if cleared by GI RESP: -DuoNeb q6hrs PRN -Protecting airway at this time -Agreeable for intubation if needed for EGD CV: -Normal saline IV fluid 2L Bolus and 120 ml per hour -Low BP at base line, currently hypotension form GIB -Levophed as needed to keep MAP>65 -IV Albumin 25 GM q12 GI: -Protonix 80 mg IVP and 8mg/hr gtt -Start Octreotide 50 mcg IVP x1 and 50 mcg/hour -NPO. Dr. Greenberg planning do EGD today -Rocephin for SBP prophylaxis -Need paracentesis due to large volume ascites : -Monitor renal function closely. Worsening renal function most likely secondary to ATN -Aj catheter. Strict I's and O's -Nephrology consult, renal US ID: -Rocephin for SBP prohylaxis -Blood culture, ascitic fluid studies HEME: -Transfuse 2U PRBC, 2U FFP and and 1 pk unuit -Monitor CBC, CMP, coags, H/H q6h ENDO: -Watch for hyperkalemia PROPH: Bilateral lower extremity SCDs/TURNER. Protonix gtt. Chemical DVT prophylaxis contraindicated LINES: Utilize peripheral IVs, place central line if needed CC time 45 min discontinuously excluding procedure time Code Status ALT CODE Discussed Condition With Thierry Gonzalez MD Sep 26, 2017 14:45
[2017-09-26] MEDS ORDERED: NOREPINEPHRINE 4 MG/4 ML AMP ONE (16:03)
[2017-09-26] MEDS ORDERED: ROCURONIUM INJ 50 MG/5 ML VIAL ONE (16:04)
[2017-09-26] MEDS ORDERED: ETOMIDATE 40 MG/20 ML VIAL ONE (16:04)
[2017-09-26] MEDS ORDERED: MIDAZOLAM HCL 5 MG/ML VIAL (1 ML) ONE (16:05)
[2017-09-26] MEDS ORDERED: MIDAZOLAM HCL 5 MG/5 ML VIAL IV PUSH ONE (16:15)
[2017-09-26] MEDS ORDERED: TERBUTALINE INJ 1 MG/ML AMP SQ PRN (16:15)
[2017-09-26] MEDS ORDERED: ETOMIDATE 20 MG/10 ML VIAL IV PUSH ONE (16:15)
--- NOTE | 2017-09-26 16:46 | PD.PROCEDR ---
Procedure Note Procedure After the risks and benefits were discussed the following procedure was performed: INTUBATION: The patient was put in optimal position for the procedure. Rapid sequence intubation was initiated by me using 20 milligrams of etomidate IV and 5 milligrams of Versed IV. DL with Mac 4 blade Grade 1 view. The patient was intubated with a 8 cuffed endotracheal tube. Tube placement was confirmed by visualization of the tube and balloon passing through the cords, capnometry and subsequent chest x-ray. Breath sounds were equal and well aerated bilaterally postintubation. No breath sounds over stomach. Patient tolerated procedure well. Thierry Mathews MD Sep 26, 2017 16:46
--- NOTE | 2017-09-26 17:19 | RADRPT ---
EXAM DATE/TIME: 09/26/2017 16:38 [facility] COMPARISON: No previous studies available for comparison. INDICATIONS : Status post intubation. MEDICAL HISTORY : None. SURGICAL HISTORY : None. ENCOUNTER: Initial ACUITY: 1 day PAIN SCORE: Non-responsive. LOCATION: Bilateral chest FINDINGS: A single view of the chest demonstrates endotracheal tube at the origin of the right mainstem bronchu s. Bilateral airspace disease and probable associated effusions may represent some degree of vascular congestion/failure. Heart size is grossly normal. Osseous structures are intact. CONCLUSION: 1. Endotracheal tube identified with the tip at the origin of the right mainstem bronchus. This shoul d be pulled back a few centimeters. 2. Bilateral airspace disease probably representing effusions, left greater than right. Plain film fi ndings suggest an element of failure. 3. Results were discussed with Dr. Mathews from [facility] at the time of this dictation Jeffery Colorado MD on September 26, 2017 at 17:13 Board Certified Radiologist. This report was verified electronically.
[2017-09-26] MEDS: PROPOFOL 1000 MG/100 ML INJ 100 ML IV PRN (19:00)
[2017-09-26] MEDS: CHLORHEXIDINE 0.12% (ORAL KIT) 15 ML CUP MT SCH (20:00)
--- NOTE | 2017-09-26 20:22 | PD.PROCEDR ---
GI Procedure PROCEDURE PERFORMED EGD with cautery INDICATION FOR PROCEDURE Upper GI bleed PROCEDURE: The procedure, risks and benefits were discussed with Mr. Faulkner and informed consent was obtained. Anesthesia sedated him with Diprivan. He was placed in the left lateral decubitus position. EGD: The Pentax videoscope was introduced through the oropharynx and advanced to the second portion of the duodenum under direct visualization. Retroflexion was performed in the stomach. FINDINGS: Esophagus there was a very small grade 1 esophageal varix at the distal end of the esophagus which was otherwise unremarkable Stomach the gastric mucosa appeared to be diffusely edematous with a cobblestone appearance suggestive of portal gastropathy no gastric varices were seen and no active bleeding was seen Duodenum there was mild bleed or ooze of blood from the duodenal bulb this was of unclear significance possible underlying AVM this was flushed multiple times I couldn't really get a good look but I went ahead and did some cautery and then flushed and no further bleeding was noted at this point the rest of the duodenum was unremarkable NG tube was placed at the end of the procedure under endoscopic guidance ESTIMATED BLOOD LOSS: Minimal blood loss SPECIMENS REMOVED: None COMPLICATIONS: None IMPRESSION: Grade 1 esophageal varices Mild portal gastropathy Duodenal AVM PLAN: Continue with current supportive care Monitor labs and transfuse as needed Mukul Greenberg MD Sep 26, 2017 20:22
[2017-09-26] MEDS: ALBUMIN 25% INJ 100 ML IV SCH (21:00)
[2017-09-26] MEDS: SODIUM CHLOR 0.9% 1000 ML INJ 1,000 ML IV SCH ×2 (21:00→21:02)
[2017-09-26] MEDS ORDERED: PANTOPRAZOLE SODIUM 40 MG VIAL IV PUSH SCH (21:00)
[2017-09-26] MEDS: SODIUM CHLORIDE 0.9% FLUSH 10 ML FLUSH IV FLUSH SCH (21:01)
[2017-09-26] MEDS: SODIUM BICARBONATE 8.4% INJ 75 MEQ in SODIUM CHLOR 0.45% 1000 ML INJ 1,000 ML IV SCH (21:29)
[2017-09-26 21:42] LABS: HEMATOCRIT 22.7 % (39.0-51.0)
[2017-09-26 22:07] LABS: HEMOGLOBIN 8.3 GM/DL (13.0-17.0)
--- NOTE | 2017-09-26 23:20 | PD.PROCEDR ---
Procedure Note Procedure DATE: 09/26/17 CENTRAL LINE PLACEMENT: Left internal jugular vein. INDICATION: Central venous access CONSENT Informed consent for procedure was obtained from patient's after discussion of risks, benefits, alternatives. DESCRIPTION OF THE PROCEDURE The patient was placed in supine position, Trendelenburg. The skin was cleansed with Chloraprep x4. Additional barrier precautions included large sterile drape, sterile gloves, sterile gown, face mask, and hat. 1 % lidocaine was used for local anesthesia. Under direct ultrasound guidance and on single attempt, the vein was accessed with an introducer needle. The guide wire was advanced. The guidewire position was confirmed with u/s. The tract was dilated. Using Seldinger technique a 7 Kosovan 20 cm antimicrobial coated triple-lumen catheter was advanced to a depth of 17 centimeters. The guide wire was removed. All ports had good return of dark venous blood and flushed easily with saline. The central line was secured with Stat-lock.. A sterile dressing with antibiotic disc was applied. ESTIMATED BLOOD LOSS: Minimal COMPLICATIONS: No apparent complications. STAT chest x-ray is pending Skylar Molina MD Sep 26, 2017 23:20
[2017-09-26 23:31] LABS: TOTAL PROTEIN 6.7 GM/DL (6.4-8.2)
--- NOTE | 2017-09-26 23:54 | RADRPT ---
EXAM DATE/TIME: 09/26/2017 23:26 [facility] COMPARISON: No previous studies available for comparison. INDICATIONS : Left internal jugular central line placement. MEDICAL HISTORY : Cirrhosis. Hypertension Hepatocellular carcinoma Esophageal varices SURGICAL HISTORY : Inguinal hernia repair. Nephrectomy ENCOUNTER: Subsequent ACUITY: 1 day PAIN SCORE: Non-responsive. LOCATION: Left chest FINDINGS: Cardia megaly, bilateral effusions and consolidation identified. Endotracheal tube tip at the inferio r margin of the clavicles. Left jugular line tip overlies the SVC. I do not see a definite pneumothor ax on this semiupright film. CONCLUSION: Left jugular line placement as above. Rashaad Lee MD on September 26, 2017 at 23:52 Board Certified Radiologist. This report was verified electronically.
[2017-09-27] VITALS (29 sets, daily range): BP systolic 85–106; BP diastolic 51–73; PULSE 63–99; RESP 16–19; TEMP 96.3–98.8; O2SAT 94–100
[2017-09-27] MEDS: SODIUM CHLOR 0.9% 1000 ML INJ 1,000 ML IV SCH (03:10)
[2017-09-27 03:31] LABS: AUTOMATED NEUTROPHIL # 8.8 TH/MM3 (1.8-7.7); BASOPHIL % 0.3 % (0.0-2.0); EOSINOPHIL % 0.5 % (0.0-4.0); HEMOGLOBIN 7.4 GM/DL (13.0-17.0); LYMPH % 1.9 % (9.0-44.0); LYMPHOCYTE # 0.2 TH/MM3 (1.0-4.8); MEAN CELL VOLUME 88.7 FL (80.0-100.0); MEAN CORPUSCULAR HEMOGLOBIN 32.5 PG (27.0-34.0); MEAN PLATELET VOLUME 7.5 FL (7.0-11.0); MONO % 3.6 % (0.0-8.0); MONOCYTE # 0.3 TH/MM3 (0-0.9); NEUT % 93.7 % (16.0-70.0); PLATELET COUNT 49 TH/MM3 (150-450); RED BLOOD COUNT 2.27 MIL/MM3 (4.50-5.90); RED CELL DISTRIBUTION WIDTH 21.7 % (11.6-17.2); WHITE BLOOD COUNT 9.3 TH/MM3 (4.0-11.0)
[2017-09-27 03:32] LABS: MEAN CORPUSCULAR HGB CONC 36.6 % (32.0-36.0)
[2017-09-27 03:40] LABS: HEMATOCRIT 20.2 % (39.0-51.0)
[2017-09-27 04:00] LABS: ALBUMIN 2.8 GM/DL (3.4-5.0); AST (GOT) 29 U/L (15-37); BICARBONATE 18.2 MEQ/L (21.0-32.0); BLOOD UREA NITROGEN 92 MG/DL (7-18); CALCIUM 7.6 MG/DL (8.5-10.1); CHLORIDE 105 MEQ/L (98-107); CREATININE 3.86 MG/DL (0.60-1.30); GLOMERULAR FILTRATION RATE 16 ML/MIN (>89); GLUCOSE,RANDOM 158 MG/DL (74-106); SODIUM (NA) 134 MEQ/L (136-145)
[2017-09-27 04:06] LABS: ALKALINE PHOSPHATASE 115 U/L (45-117); ALT (GPT) 29 U/L (12-78); TOTAL BILIRUBIN ADULT 4.3 MG/DL (0.2-1.0); TOTAL PROTEIN 6.7 GM/DL (6.4-8.2)
[2017-09-27 04:18] LABS: BANDS 8 % (0-6); BASOPHILS 1 % (0-2); LYMPHOCYTES 1 % (9-44); MONOCYTES 1 % (0-8); NEUTROPHIL # MANUAL DIFF 8.8 TH/MM3 (1.8-7.7); POLYS (SEG NEUTROPHILS) 87 % (16-70)
[2017-09-27 04:20] LABS: OVALOCYTES 1+ (NORMAL)
[2017-09-27] MEDS ORDERED: SODIUM CHLOR 0.9% 250 ML INJ 250 ML IV ONE (04:45)
[2017-09-27] MEDS: OCTREOTIDE INJ 500 MCG in SODIUM CHLORID 0.9% 500 ML INJ 499.5 ML IV SCH ×5 (05:25→20:00)
[2017-09-27] MEDS: PROPOFOL 1000 MG/100 ML INJ 100 ML IV PRN ×2 (05:30→10:03)
[2017-09-27] MEDS: PANTOPRAZOLE INJ 80 MG in SODIUM CHLORIDE 0.9% INJ 100 ML IV SCH ×2 (05:33→13:00)
[2017-09-27] MEDS: NOREPINEPHRINE INJ 4 MG in SODIUM CHLOR 0.9% 250 ML INJ 246 ML IV PRN ×2 (05:37→17:27)
--- NOTE | 2017-09-27 05:51 | MB ---
cc: JOSE PRITCHARD MD DATE OF CONSULTATION September 26, 2017 REASON FOR CONSULTATION Elevated BUN and creatinine. HISTORY OF PRESENT ILLNESS The patient was seen by me around 05:00 p.m. This is a 67-year-old male with a past medical history of chronic liver disease, esophageal dialysis varices with ascites, hepatic cancer, who presented to the hospital with complaint of GI bleeding with hematemesis and anemia. I was called to see the patient because of elevated BUN and creatinine. The patient was admitted earlier in the morning. He came to the hospital in the morning and later in the day the patient was admitted. According to the notes, the patient came with his and he has weakness and dizziness for the last two days and he had episodes of fresh blood in the vomitus and vomited one cup each time. The patient was found to be hypotensive. Blood pressure on presentation was 80/44. He had this low blood pressure the night before he came to the hospital and he refused to come to the hospital. The patient has an appointment to get transfusion today and then PET scan on Sunday and liver biopsy next Sunday. PAST MEDICAL HISTORY The patient is not able to give any history. Most of the history was taken from the patient's chart - 1. Liver cancer. 2. History of alcoholism. 3. Hypertension. 4. Diabetes mellitus. 5. Esophageal varices. PAST SURGICAL HISTORY 1. History of renal stone removal. 2. Inguinal hernia. 3. Rotator cuff surgery. REVIEW OF SYSTEMS Cannot be taken since the patient is intubated. SOCIAL HISTORY Patient is , lives with his . He has a history of alcoholism, stopped 13 years ago. History of smoking, quit 5 years ago. FAMILY HISTORY Noncontributory ALLERGIES He is allergic to SPIRONOLACTONE. MEDICATIONS Currently he is on the following medications - 1. Protonix infusion. 2. Octreotide infusion. 3. Peridex b.i.d. 4. Vitamin C 400 units once a day. 5. Drisdol 50,000 Sunday, Sunday and Sunday. 6. He is on low dose of norepinephrine. 7. Zofran p.r.n. 8. Lactulose 30 mL t.i.d. 9. Ceftriaxone 1 gram q. 24-hours. 10. Albumin q. 12 hours. PHYSICAL EXAMINATION GENERAL: On examination the patient is intubated, sedated and on low-dose pressors. VITAL SIGNS: The last blood pressure is 137/84, temperature 98.7, oxygen saturation 100% on 100% FIO2. The lowest blood pressure recorded in the hospital is 77/41. HEENT: Pupils are mid-constricted. Has nonicteric sclerae, conjunctivae pale. NECK: Supple. JVD is not elevated. LUNGS: The patient has bilateral decreased air entry with scattered wheezing. HEART: S1, S2 regular rhythm. ABDOMEN: Distended. There is ascites and it is quite tense. There is no definite tenderness. EXTREMITIES: He has 1+ leg edema. INVESTIGATIONS WBC count is 9.0, hemoglobin 6.3, platelet count of 59, neutrophils 91.9%. Sodium 130, potassium 4.1, chloride 100, bicarb 16.2, BUN 96, creatinine 4.34. Calcium is 8.1, total bilirubin is 1.2, AST, ALT normal, albumin is 2.3. Lipase is 196. INR 1.4. Fibrinogen level is 233. IMAGING STUDIES The patient had chest x-ray done which shows endotracheal tube in the right mediastinum, bilateral airspace disease, possibility of some effusion. ASSESSMENT AND PLAN 1. Acute kidney injury. 2. Metabolic acidosis. 3. Severe anemia and GI bleeding. 4. Respiratory failure. 5. Hypotension and shock status. 6. History of liver cancer. The patient has severe anemia and came with very high BUN and creatinine. Do no know his baseline creatinine. The patient has a creatinine of 4.3 on admission. His urine output is on the lower side and he passed 200 before he got his Aj catheter and now he has a Aj catheter. The etiology of acute kidney injury is most likely ATN from the hypotension or possibility of Glomerulonephritis, which is unlikely. I will check the urine sodium osmolality and give him gentle hydration with addition of the sodium bicarbonate since his bicarb is low. If there is no improvement in the renal function, then he possibly will need dialysis. Avoid nephrotoxins. Thank you for the consultation. I will follow the patient while he is in the hospital. MD MARYANN Dior/SEAN /8:59 PM /5:13 AM [id number]
[2017-09-27] MEDS: ALBUMIN 25% INJ 100 ML IV SCH ×2 (06:33→17:30)
--- NOTE | 2017-09-27 07:46 | HHI.CCPN ---
Subjective Remarks/Hospital Course Patient is a 67 year old male with past medical history significant for hepatocellular carcinoma, liver cirrhosis, previous variceal bleed status post banding 4 years ago, history of nephrectomy, hypertension diabetes who presented to the ED with feeling weak and dizzy for the last 2 days and the hematemesis since yesterday evening. He has not had any episodes of hematemesis today. His hemoglobin was 6.3 with hematocrit 17.7. Initial blood pressure was 82/53. Patient received crystalloid fluid boluses. And was also ordered to receive 2 units of PRBC and 1 packed unit of platelet, platelet count 59. BUN/creat 96/4.34. Patient was also started on Protonix infusion. Patient was admitted to [facility] with consult critical care. I evaluated the patient in the emergency department, patient is borderline hypotensive and lethargic but awake alert and follows commands. 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 Last endoscopy was about 3 years ago gets ascites drained every two weeks. I have placed order for Octreotide infusion, and ordered 2 units of FFP. Discussed with Dr. Greenberg who is planning to do upper endoscopy today. Was also noted on the bedside ultrasound that the patient has significant ascites SUBJ 09/27: Patient remains intubated and sedated Levophed started overnight for worsening hypotension. Getting additional 1 unit PRBC today for hemoglobin of 7.4 with hypotension. Severe ascites need paracentesis today. EGD showed Grade 1 esophageal varices, Mild portal gastropathy, Duodenal AVM which was cauterized by Dr. Greenberg Objective Vital Signs Date Time Temp Pulse Resp B/P (MAP) Pulse Ox O2 Delivery O2 Flow Rate FiO2 09/27/17 05:37 81 107/69 09/27/17 04:50 100 50 09/27/17 00:00 96.3 19 09/26/17 11:20 Room Air Intake and Output 09/27/17 09/27/17 09/28/17 08:00 16:00 00:00 Intake Total 25 ml Balance 25 ml Result Diagram: 09/27/17 0308 09/27/17 0308 Other Results Laboratory Tests Test 09/26/17 17:38 Blood Gas Puncture Site LT RADIAL Blood Gas Patient Temperature 98.6 Blood Gas HCO3 15 mmol/L (22-26) Blood Gas Base Excess -9.7 mmol/L (-2-2) Blood Gas Oxygen Saturation 96 % (90-100) Arterial Blood pH 7.37 (7.380-7.420) Arterial Blood Partial Pressure CO2 26 mmHg (38-42) Arterial Blood Partial Pressure O2 132 mmHg (61-120) Arterial Blood Oxygen Content 11.0 Vol % (12.0-20.0) Arterial Blood Carboxyhemoglobin 3.0 % (0-4) Arterial Blood Methemoglobin 1.1 % (0-2) Blood Gas Hemoglobin 8.0 G/DL (12.0-16.0) Oxygen Delivery Device VENTILATOR Blood Gas Ventilator Setting 500/AC18/PEEP8 Blood Gas Inspired Oxygen 50 % Objective Remarks GENERAL: This is a well-nourished, well-developed patient,intubated sedated with propofol SKIN: Cool and dry. Pale HEAD: Atraumatic. Normocephalic. EYES: Pupils equal round and reactive.No scleral icterus. No injection or drainage. ENT: Orotracheally intubated NECK: Trachea midline. No JVD or lymphadenopathy. Supple, nontender, no meningeal signs. CARDIOVASCULAR: Regular rate and rhythm without murmurs, gallops, or rubs. Hypotensive on Levophed RESPIRATORY: Orotracheally intubated. Breath sounds equal bilaterally. No wheezes, rales, or rhonchi. GASTROINTESTINAL: Abdomen soft, non-tender, nondistended. +ve fluid thrill, Large amount on ascites on bedside US MUSCULOSKELETAL: Extremities without clubbing, cyanosis NEUROLOGICAL: Intubated sedated with propofol. Opens eyes, moves extremities Urinary Catheter: Yes Assessment to: Continue Vascular Central Line Catheter: Yes Assessment to: Continue A/P Assessment and Plan ASSESSMENT: Upper GIB, (EGD 09/26 showing duodenal AVM, grade 1 varices, portal gastropathy) Anemia requiring transfusion Hypotension Coagulopathy, thrombocytopenia Ascites Acute kidney failure Hepatic encephalopathy Hyperammonemia Liver cirrhosis Hepatocellular carcinoma History of alcohol dependence History of nephrectomy PLAN: NEURO: -Propofol for sedation and vent synchrony -Lactulose 30 mL 4 times daily -Repeat ammonia level a.m. RESP: -Intubated for worsening respiratory failure -PRVC/AC, vent bundle -DuoNeb q6hrs PRN -Start weaning trials after completion of paracentesis, if mentation improves CV: -On Levophed to keep MAP>65 -Normal saline IV fluid 84 ml per hour -Blood and blood product transfusion as below -Cannot use beta-blockers for esophageal varices due to hypotension -IV Albumin 25 GM q12 GI: -Protonix 8mg per hour gtt -Continue Octreotide 50 mcg/hour -EGD 09/26-found to have grade 1 varices, portal gastropathy, duodenal AVM. Dr. Greenberg cauterized duodenal AVM -Rocephin for SBP prophylaxis -Paracentesis due to large volume ascites -Lactulose 30 mL 4 times daily : -Monitor renal function closely. Worsening renal function most likely secondary to ATN -Aj catheter. Strict I's and O's -Nephrology consult, renal US ID: -Rocephin for SBP prohylaxis -f/uBlood culture, ascitic fluid studies HEME: -Transfused 2U PRBC, 2U FFP and and 1 pk unit 09/26 -Additional 1 unit PRBC and 1 packed unit of platelets 09/27/17 -Monitor CBC, CMP, coags, H/H q6h ENDO: -Watch for hyperkalemia PROPH: Bilateral lower extremity SCDs/TURNER. Protonix gtt. Chemical DVT prophylaxis contraindicated LINES: Utilize peripheral IVs, place central line if needed CC time 35 min discontinuously excluding procedure time Patient remains critically ill at this time with increasing Levophed requirement , and requiring additional blood products. Patient has severe ascites which may be contributing to the renal failure from compartment syndrome. Proceed with paracentesis today Thierry Mathews MD Sep 27, 2017 07:46
[2017-09-27] MEDS: CHLORHEXIDINE 0.12% (ORAL KIT) 15 ML CUP MT SCH ×2 (08:00→20:00)
[2017-09-27] MEDS ORDERED: ALBUMIN 25% INJ 50 ML IV ONE (08:15)
[2017-09-27] MEDS: VITAMIN E 400 UNIT CAP PO SCH (09:00)
--- NOTE | 2017-09-27 10:07 | HHI.HP ---
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 Nixon, presented to the ED with hematemesis. He was accompanied by his , who provides all of the history. Reports that he has been weak and dizziness for the last couple of days. Had 2x episodes of maroon-colored vomiting, reports he vomited up about 1 cup each time. His blood pressure was 80/44 at home last night, but patient refused to go to the hospital. This morning when he woke up, he felt lightheaded while sitting on the toilet and yanked the towel bar out of the wall to catch himself. The sound woke his up. was concerned and brought patient immediately to the hospital. reports that he had an appointment to get transfused today per Hematology, PET scan on Sunday, and liver biopsy next Sunday. Hemoglobin normally around mid 7s, lowest 3.7 per . He denies any abdominal pain, diarrhea, fevers, and melena. He had orthostatic sxs when he was on his feet which resulted in the fall in the bathroom. He became very hypotensive in the ED and required multiple boluses of normal saline to keep his pressures up and then had transfusions of blood, platelets and FFP. He needed to be intubated because of increased SOB yesterday afternoon. Unfortunately, with his poor liver function, he had ascites when he came to the hospital but it got worse with all his fluids. He had high volume paracentesis today with perhaps 10 liters removed. His blood pressures remained stable with albumin. His and the patient both did not want him "kept alive on machines" for any extended period of time. However, they did want a work up of his cancer and he had been on the liver transplant list until the cancer was found. He was very uncomfortable with his SOB and agreed to be intubated but not forever. Hopefully his paracentesis will allow him to breathe better and be extubated. His bleeding is under control and done today and he is s/p EGD. His renal function is baseline with a creatinine of about 3 but was on admission up to 4. " Review of Systems Other Constitutional: COMPLAINS OF: Weight loss (drop 50 lbs since december), DENIES: Fever Eyes: DENIES: Vision loss Ears, nose, mouth, throat: DENIES: Running Nose Respiratory: DENIES: Shortness of breath Cardiovascular: DENIES: Chest pain Gastrointestinal: COMPLAINS OF: Nausea, Vomiting, DENIES: Abdominal pain Genitourinary: DENIES: Dysuria Musculoskeletal: DENIES: Muscle aches Integumentary: DENIES: Rash Neurologic: COMPLAINS OF: Headache Past Family Social History Past Medical History Hepatocellular liver cancer with cholangio markers, MELD score of 28 Heavy drinker, quit 13 years ago HTN DM, was on metformin and glipizide, last Alc 5.4%, off meds for about 6months Esophageal varices bleed 4 years ago, was banded Past Surgical History Kidney removal when younger inguinal repair Rotator cuff repair right shoulder Allergies: Coded Allergies: spironolactone (Verified Adverse Reaction, Unknown, 09/26/17) BREAST TENDERNESS Family History Mom- hx of heart disease- living at 84 Brother- younger [place]- 49 Dad-86, living, bladder cancer Brother- 64, [place] living Social History Lives with in [facility]- 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, 40 years, 1 ppd 12 pack of beer a night, quit 13 years ago Denies illicit drug use Physical Exam Vital Signs Vital Signs Date Time Temp Pulse Resp B/P (MAP) Pulse Ox O2 Delivery O2 Flow Rate FiO2 09/27/17 08:25 97.4 70 16 91/61 (71) 100 09/27/17 08:20 97.4 71 17 91/61 100 09/27/17 08:12 100 50 09/27/17 08:06 71 16 87/58 100 09/27/17 06:00 80 09/27/17 05:37 81 107/69 09/27/17 04:50 100 50 09/27/17 04:00 87 09/27/17 04:00 98.8 87 18 104/69 (81) 100 09/27/17 04:00 50 18 02:00 100 60 18 02:00 82 218 00:00 60 218 00:00 77 09/27/17 00:00 96.3 77 19 106/73 (84) 100 18 23:18 100 60 2/18 22:04 94.3 78 33 100 09/26/17 22:00 74 18 20:00 100 18 20:00 66 21 122/77 (92) 100 18 20:00 66 18 19:52 99 100 18 19:00 69 128/79 18 18:00 98.7 73 17 137/84 (101) 100 18 18:00 73 18 18:00 73 18 17:23 98.9 85 17 113/73 100 09/26/17 17:17 97 129/72 18 16:26 100 100 18 16:15 97 17 129/72 (91) 100 09/26/17 16:12 98.7 98 28 120/66 98 09/26/17 16:00 98 09/26/17 16:00 98 09/26/18 14:36 97.5 90 22 107/69 96 09/26/18 14:30 97.5 90 28 107/69 (82) 96 18 14:30 90 18 14:00 90 18 13:57 18 13:05 98.0 63 16 90/51 96 18 12:51 98.0 75 17 102/64 97 18 12:39 98.0 64 17 101/62 97 18 12:20 98.0 73 17 92/55 97 18 12:06 99 21 18 12:04 97.9 75 16 86/51 97 18 11:20 75 16 77/47 (57) 97 Room Air 09/26/17 10:50 65 15 77/41 (53) 97 Room Air 09/26/17 10:20 72 17 81/51 (61) 97 Room Air Physical Exam GENERAL: lethargic, pale somewhat cachectic male with obvious ascites , lying in bed, complaining of fatigue and dizziness initially, today intubated SKIN: Pale, dry. HEAD: Atraumatic. Normocephalic. EYES: Pupils equal round and reactive. Extraocular motions intact. Pallor conjunctiva. No sclera icterus. ENT: Nose without bleeding, purulent drainage or septal hematoma. Throat without erythema, tonsillar hypertrophy or exudate. Uvula midline. Airway patent on admission. NECK: Trachea midline. No JVD or lymphadenopathy. Supple, nontender, no meningeal signs. CARDIOVASCULAR: Regular rate and rhythm without murmurs, gallops, or rubs. RESPIRATORY: Clear to auscultation. Breath sounds equal bilaterally. No wheezes , rales, or rhonchi. GASTROINTESTINAL: Distended abdomen, ascites present, + BS. having paracentesis while in room with him and his abdomen actually was looking scaphoid MUSCULOSKELETAL: Extremities without clubbing, cyanosis, or edema. No joint tenderness, effusion, or edema noted. NEUROLOGICAL:initially talking and cooperative but intubated and sedated today Laboratory Laboratory Tests Test 09/26/17 14:15 09/26/17 17:38 09/26/17 21:15 09/27/17 03:08 Nasal Screen MRSA (PCR) MRSA NOT DETECTED Blood Gas Puncture Site LT RADIAL Blood Gas Patient Temperature 98.6 Blood Gas HCO3 15 Blood Gas Base Excess -9.7 Blood Gas Oxygen Saturation 96 Arterial Blood pH 7.37 Arterial Blood Partial Pressure CO2 26 Arterial Blood Partial Pressure O2 132 Arterial Blood Oxygen Content 11.0 Arterial Blood Carboxyhemoglobin 3.0 Arterial Blood Methemoglobin 1.1 Blood Gas Hemoglobin 8.0 Oxygen Delivery Device VENTILATOR Blood Gas Ventilator Setting 500/AC18/PEEP8 Blood Gas Inspired Oxygen 50 Hemoglobin 8.3 7.4 Hematocrit 22.7 20.2 White Blood Count 9.3 Red Blood Count 2.27 Mean Corpuscular Volume 88.7 Mean Corpuscular Hemoglobin 32.5 Mean Corpuscular Hemoglobin Concent 36.6 Red Cell Distribution Width 21.7 Platelet Count 49 Mean Platelet Volume 7.5 Neutrophils (%) (Auto) 93.7 Lymphocytes (%) (Auto) 1.9 Monocytes (%) (Auto) 3.6 Eosinophils (%) (Auto) 0.5 Basophils (%) (Auto) 0.3 Neutrophils # (Auto) 8.8 Lymphocytes # (Auto) 0.2 Monocytes # (Auto) 0.3 Eosinophils # (Auto) 0.0 Basophils # (Auto) 0.0 CBC Comment AUTO DIFF Differential Total Cells Counted 100 Neutrophils % (Manual) 87 Band Neutrophils % 8 Lymphocytes % 1 Monocytes % 1 Eosinophils % 2 Basophils % 1 Neutrophils # (Manual) 8.8 Differential Comment FINAL DIFF MANUAL Platelet Estimate LOW Platelet Morphology Comment NORMAL Basophilic Stippling FAINT Ovalocytes 1+ Blood Urea Nitrogen 92 Creatinine 3.86 Random Glucose 158 Total Protein 6.7 Albumin 2.8 Calcium Level 7.6 Alkaline Phosphatase 115 Aspartate Amino Transf (AST/SGOT) 29 Alanine Aminotransferase (ALT/SGPT) 29 Total Bilirubin 4.3 Sodium Level 134 Potassium Level 3.7 Chloride Level 105 Carbon Dioxide Level 18.2 Anion Gap 11 Estimat Glomerular Filtration Rate 16 Test 09/27/17 04:09 Ammonia 81 Result Diagram: 09/27/178 09/27/17 030 Caprini VTE Risk Assessment Caprini VTE Risk Assessment: Mod/High Risk (score >= 2) Caprini Risk Assessment Model Point Value = 1 Point Value = 2 Point Value = 3 Point Value = 5 Age 41-60 Minor surgery BMI > 25 kg/m2 Swollen legs Varicose veins or History of unexplained or recurrent spontaneous Oral contraceptives or hormone replacement Sepsis (< 1 month) Serious lung disease, including pneumonia (< 1 month) Abnormal pulmonary function Acute myocardial infarction Congestive heart failure (< 1 month) History of inflammatory bowel disease Medical patient at bed rest Age 61-74 Arthroscopic surgery Major open surgery (> 45 min) Laparoscopic surgery (> 45 min) Malignancy Confined to bed (> 72 hours) Immobilizing plaster cast Central venous access Age >= 75 History of VTE Family history of VTE Factor V Leiden Prothrombin [id number] Lupus anticoagulant Anticardiolipin antibodies Elevated serum homocysteine Heparin-induced thrombocytopenia Other congenital or acquired thrombophilia Stroke (< 1 month) Elective arthroplasty Hip, pelvis, or leg fracture Acute spinal cord injury (< 1 month) Prophylaxis Regimen Total Risk Factor Score Risk Level Prophylaxis Regimen 0-1 Low Early ambulation 2 Moderate Order ONE of the following: *Sequential Compression Device (SCD) *Heparin 5000 units SQ BID 3-4 Higher Order ONE of the following medications: *Heparin 5000 units SQ TID *Enoxaparin/Lovenox 40 mg SQ daily (WT < 150 kg, CrCl > 30 mL/min) *Enoxaparin/Lovenox 30 mg SQ daily (WT < 150 kg, CrCl > 10-29 mL/min) *Enoxaparin/Lovenox 30 mg SQ BID (WT < 150 kg, CrCl > 30 mL/min) AND/OR *Sequential Compression Device (SCD) 5 or more Highest Order ONE of the following medications: *Heparin 5000 units SQ TID (Preferred with Epidurals) *Enoxaparin/Lovenox 40 mg SQ daily (WT < 150 kg, CrCl > 30 mL/min) *Enoxaparin/Lovenox 30 mg SQ daily (WT < 150 kg, CrCl > 10-29 mL/min) *Enoxaparin/Lovenox 30 mg SQ BID (WT < 150 kg, CrCl > 30 mL/min) AND *Sequential Compression Device (SCD) Assessment and Plan Assessment and Plan 67-year-old male patient with history of esophageal varices, ascites, recent diagnosis of hepatocellular carcinoma, following up with Dr. Nixon, presents to the ED with hematemesis. Patient transferred to ICU due to significant hypotension and general high risk condition. Unsure how he will do with his general frail and chronically ill state. His liver failure is end stage and any problem is always worse. His renal function is poor but stable. Problem List: (1) Upper GI bleed ICD Codes: K92.2 - Gastrointestinal hemorrhage, unspecified Plan: 2 day hx of hematemesis, suspected upper GI bleed H/H 6.3/17.7, improved today Plt 59 AST/ALT wnl BP responsive after fluid boluses H/H q6h Type and Screen ordered 2 units of RBCs and 1 unit of plts ordered Octreotide Drip and Protonix drip ordered Rocephin 1,000mg IV q24h (started 09/26) Ondansetron for N/V NS IV 115mls/hr GI and Cook Starch consulted, recommendations appreciated -EGD done, patient agreeable to intubation for procedure (2) Anemia ICD Codes: D64.9 - Anemia, unspecified Status: Acute Plan: Secondary to upper GI bleed but also was anemic prior to bleed See plan above (3) Thrombocytopenia ICD Codes: D69.6 - Thrombocytopenia, unspecified Status: Acute Plan: Plt 59 1 unit of plt ordered continue to monitor likely from cirrhosis (4) Renal failure (ARF), acute on chronic ICD Codes: N17.9 - Acute kidney failure, unspecified; N18.9 - Chronic kidney disease, unspecified Status: Chronic (5) Nutrition, metabolism, and development symptoms ICD Codes: R63.8 - Other symptoms and signs concerning food and fluid intake Plan: Diet: NPO Fluids: NS 115mls/hr vitals q4h, monitor I& Os, cardiac telemetry DVT ppx: SCDs Problem Qualifiers (1) Anemia: Qualified Codes: D64.9 - Anemia, unspecified (2) Renal failure (ARF), acute on chronic: Qualified Codes: N17.9 - Acute kidney failure, unspecified; N18.3 - Chronic kidney disease, stage 3 (moderate) Lala Myers MD Sep 27, 2017 10:07
--- NOTE | 2017-09-27 10:21 | PD.PROCEDR ---
Procedure Note Procedure INDICATION: Large volume paracentesis Ultrasound used to magda location CONSENT: Consent was obtained from prior to the procedure. Indications, risks, and benefits were explained at length. PROCEDURE SUMMARY: A time-out was performed. I wore a surgical cap, mask with protective eyewear, sterile gown and sterile gloves throughout the procedure. The area was cleansed and draped in usual sterile fashion. Anesthesia was achieved with 1% lidocaine. The LLQ of the abdomen was prepped and draped in a sterile fashion using chlorhexidine scrub. 1% lidocaine was used to numb the skin, soft tissue and peritoneum. The paracentesis catheter was inserted and advanced with negative pressure until cloudy, slightly blood tinged fluid was aspirated. Approximately 60 mL of ascitic fluid was collected and sent for laboratory analysis. The catheter was then connected to the Vacutainer and 10.3 liters (10,300 ml) of additional ascitic fluid were drained. The catheter was removed and a bandaid was placed over the puncture wound. The patient tolerated the procedure well without any immediate complications. Estimated blood loss was< 1 ml Thierry Mathews MD Sep 27, 2017 10:21
[2017-09-27 11:13] LABS: TOTAL PROTEIN,PERITONEAL FLUID 0.7 GM/DL
[2017-09-27 11:25] LABS: PERITONEAL EOS 1 %; PERITONEAL LYMPHS 46 %; PERITONEAL MONOS 5 %; PERITONEAL POLYS(SEGS) 48 %; PERITONEAL RBC 15795 /MM3 (0-0)
[2017-09-27] MEDS: LACTULOSE SYRUP 20 GM/30 ML CUP PO SCH ×4 (12:28→20:35)
[2017-09-27] MEDS: SODIUM CHLORIDE 0.9% FLUSH 10 ML FLUSH IV FLUSH SCH ×2 (12:30→20:35)
[2017-09-27] MEDS: cefTRIAXone INJ 1,000 MG in SODIUM CHLORIDE 0.9% INJ 100 ML IV SCH (13:00)
[2017-09-27] MEDS: SODIUM BICARBONATE 8.4% INJ 75 MEQ in SODIUM CHLOR 0.45% 1000 ML INJ 1,000 ML IV SCH (13:01)
[2017-09-27 13:54] LABS: HEMATOCRIT 22.9 % (39.0-51.0); HEMOGLOBIN 8.4 GM/DL (13.0-17.0)
--- NOTE | 2017-09-27 13:56 | HHI.GIFU ---
Subjective Remarks Pt awake and following commands, remains intubated. at bedside. No BM since EGD yesterday. OG tube with 200mL of brown output in suction canister. (Pushpa Gee) Objective Vitals I&O Vital Signs Date Time Temp Pulse Resp B/P (MAP) Pulse Ox O2 Delivery O2 Flow Rate FiO2 09/27/17 13:19 100 40 09/27/17 13:19 40 09/27/17 11:44 100 50 09/27/17 10:15 66 17 87/54 100 09/27/17 10:00 68 18 85/51 100 09/27/17 09:45 63 16 103/62 100 09/27/17 09:30 63 17 91/57 100 09/27/17 09:15 66 18 95/63 100 09/27/17 09:00 69 16 92/62 100 09/27/17 08:45 71 16 89/62 100 09/27/17 08:30 69 16 92/62 100 09/27/17 08:25 97.4 70 16 91/61 (71) 100 09/27/17 08:20 97.4 71 17 91/61 100 09/27/17 08:12 100 50 09/27/17 08:06 71 16 87/58 100 09/27/17 08:00 88 09/27/17 08:00 50 09/27/17 06:00 80 09/27/17 05:37 81 107/69 09/27/17 04:50 100 50 09/27/17 04:00 87 09/27/17 04:00 98.8 87 18 104/69 (81) 100 09/27/17 04:00 50 09/27/17 02:00 100 60 09/27/17 02:00 82 09/27/17 00:00 60 09/27/17 00:00 77 09/27/17 00:00 96.3 77 19 106/73 (84) 100 09/26/17 23:18 100 60 09/26/17 22:04 94.3 78 33 100 09/26/17 22:00 74 09/26/17 20:00 100 09/26/17 20:00 66 21 122/77 (92) 100 09/26/17 20:00 66 09/26/17 19:52 99 100 09/26/17 19:00 69 128/79 09/26/17 18:00 98.7 73 17 137/84 (101) 100 09/26/17 18:00 73 09/26/17 18:00 73 09/26/17 17:23 98.9 85 17 113/73 100 09/26/17 17:17 97 129/72 09/26/17 16:26 100 100 09/26/17 16:15 97 17 129/72 (91) 100 09/26/17 16:12 98.7 98 28 120/66 98 09/26/17 16:00 98 09/26/17 16:00 98 09/26/17 14:36 97.5 90 22 107/69 96 09/26/17 14:30 97.5 90 28 107/69 (82) 96 09/26/17 14:30 90 09/26/17 14:00 90 09/26/17 13:57 I/O 09/26/17 09/26/17 09/26/17 09/27/17 09/27/17 09/27/17 07:00 15:00 23:00 07:00 15:00 23:00 Intake Total 400 ml 1821 ml 25 ml 160 ml Output Total 353 ml 550 ml Balance 400 ml 1468 ml -525 ml 160 ml Intake Oral 400 ml IV Total 150 ml Packed Cells 400 ml FFP 650 ml Platelets 381 ml Blood Product IV Normal Saline Flush 190 ml 25 ml 10 ml Other 200 ml Output Urine Total 350 ml 400 ml Stool Total 3 ml 0 ml Gastric Drainage Total 150 ml Laboratory Laboratory Tests Test 09/26/17 14:15 09/26/17 17:38 09/26/17 21:15 09/27/17 03:08 Nasal Screen MRSA (PCR) MRSA NOT DETECTED Blood Gas Puncture Site LT RADIAL Blood Gas Patient Temperature 98.6 Blood Gas HCO3 15 Blood Gas Base Excess -9.7 Blood Gas Oxygen Saturation 96 Arterial Blood pH 7.37 Arterial Blood Partial Pressure CO2 26 Arterial Blood Partial Pressure O2 132 Arterial Blood Oxygen Content 11.0 Arterial Blood Carboxyhemoglobin 3.0 Arterial Blood Methemoglobin 1.1 Blood Gas Hemoglobin 8.0 Oxygen Delivery Device VENTILATOR Blood Gas Ventilator Setting 500/AC18/PEEP8 Blood Gas Inspired Oxygen 50 Hemoglobin 8.3 7.4 Hematocrit 22.7 20.2 White Blood Count 9.3 Red Blood Count 2.27 Mean Corpuscular Volume 88.7 Mean Corpuscular Hemoglobin 32.5 Mean Corpuscular Hemoglobin Concent 36.6 Red Cell Distribution Width 21.7 Platelet Count 49 Mean Platelet Volume 7.5 Neutrophils (%) (Auto) 93.7 Lymphocytes (%) (Auto) 1.9 Monocytes (%) (Auto) 3.6 Eosinophils (%) (Auto) 0.5 Basophils (%) (Auto) 0.3 Neutrophils # (Auto) 8.8 Lymphocytes # (Auto) 0.2 Monocytes # (Auto) 0.3 Eosinophils # (Auto) 0.0 Basophils # (Auto) 0.0 CBC Comment AUTO DIFF Differential Total Cells Counted 100 Neutrophils % (Manual) 87 Band Neutrophils % 8 Lymphocytes % 1 Monocytes % 1 Eosinophils % 2 Basophils % 1 Neutrophils # (Manual) 8.8 Differential Comment FINAL DIFF MANUAL Platelet Estimate LOW Platelet Morphology Comment NORMAL Basophilic Stippling FAINT Ovalocytes 1+ Blood Urea Nitrogen 92 Creatinine 3.86 Random Glucose 158 Total Protein 6.7 Albumin 2.8 Calcium Level 7.6 Alkaline Phosphatase 115 Aspartate Amino Transf (AST/SGOT) 29 Alanine Aminotransferase (ALT/SGPT) 29 Total Bilirubin 4.3 Sodium Level 134 Potassium Level 3.7 Chloride Level 105 Carbon Dioxide Level 18.2 Anion Gap 11 Estimat Glomerular Filtration Rate 16 Test 09/27/17 04:09 09/27/17 09:45 09/27/17 13:14 Ammonia 81 Peritoneal Fluid WBC 167 Peritoneal Fluid RBC 85406 Peritoneal Fluid Neutrophils 48 Peritoneal Fluid Lymphocytes 46 Peritoneal Fluid Monocytes 5 Peritoneal Fluid Eosinophils 1 Peritoneal Fluid Total Protein 0.7 Peritoneal Fluid Albumin 0.3 Peritoneal Fluid LDH 34 Peritoneal Fluid Glucose 158 Date/Time Source Procedure Growth Status 09/27/17 09:45 Fluid Peritoneal Fluid Gram Stain Pending Received 09/27/17 09:45 Fluid Peritoneal Fluid Body Fluid Culture Pending Received Imaging Last Impressions Chest X-Ray 09/26/17 0000 Signed Impressions: Service Date/Time: Tuesday, September 26, 2017 23:26 - CONCLUSION: Left jugular line placement as above. Rashaad Lee MD Physical Exam HEENT: Normocephalic; atraumatic CHEST: Respirations in sync with vent, ETT CARDIAC: RRR ABDOMEN: Soft, nondistended, bowel sounds active EXTREMITIES: No clubbing, cyanosis, or edema. SKIN: Pale GUEST RELATIONS ASSOCIATE: Awake, follows commands (Pushpa Gee) Assessment and Plan Plan ASSESSMENT - hematemesis - last night onset hematemesis. hx esophageal varices. per pt last EGD 3 y ago and normal per EMR he had EGD and banding varices 4 y ago - anemia - hgb 6.3 on admission, normocytic. likely multifactorial - coagulopathy - INR 1.4 - cirrhosis, HCC PT is DNR (09/27) S/P EGD yesterday --> Portal gastropathy, grade 1 esophageal varices, AVM duodenum s/p ablation. H/H 7.4/20.1. 1 U PRBCs today. No repeat INR, 2 U FFP yesterday. Has not had a BM since procedure yesterday. OG to LIWS with 200 mL of brown output in suction canister. Pt remains on Octreotide gtt and Protonix gtt. Ammonia-81. Pt had bedside paracentesis this morning with 10.3 liters taken off. Cytology and culture pending. Spoke with at bedside in length she states pt is not currently on a liver transplant list. Previously he was on one in [place] then went to [place], however was ruled out due to the possibility of cholangiocarcinoma. states he needs a biopsy to rule out cholangiocarcinoma and prove it is only HCC for him to be placed back on the list. PLAN - Octreotide gtt - Protonix gtt - Lactulose - Rifaximin - Monitor labs - Notify GI of continued bleeding - Supportive care - Further recommendations to follow based on clinical course Pt has been seen and examined by myself and Dr. Greenberg and this note is written on his behalf (Pushpa Gee) Physician Comments Patient seen and examined Agree with above Continue with current supportive care Monitor labs (Mukul Greenberg MD) Pushpa Gee Sep 27, 2017 13:56 Mukul Greenberg MD Sep 27, 2017 19:12
--- NOTE | 2017-09-27 14:21 | EKG ---
Date Performed: 09/26/2017 Time Performed: 11:11:23 PTAGE: 67 years EKG: Sinus rhythm WITH MARKED SINUS ARRHYTHMIA LOW QRS VOLTAGE ABNORMAL ECG CLINICAL CORRELATION RECOMMENDED. NO PREVIOUS TRACING DOCTOR: Alexi Serrato Interpretating Date/Time 09/27/2017 14:20:54
--- NOTE | 2017-09-27 14:44 | RADRPT ---
EXAM DATE/TIME: 09/27/2017 11:25 [facility] COMPARISON: No previous studies available for comparison. INDICATIONS : Renal failure. MEDICAL HISTORY : Hypercholesterolemia. Hypertension. Gastroesophageal reflux disease. Ulcer. SURGICAL HISTORY : Cardiac cath. Right rotator cuff repair. ENCOUNTER: Initial ACUITY: 1 day PAIN SCORE: Nonresponsive. LOCATION: Bilateral flank MEASUREMENTS: RIGHT KIDNEY: 12.0 x 4.9 x 5.4 cm LEFT KIDNEY: 11.1 x 3.9 x 5.6 cm FINDINGS: Ascites. RIGHT KIDNEY: Diffuse increase in renal cortical echogenicity. No evidence of mass, stone or hydronephrosis. LEFT KIDNEY: Diffuse increase in renal cortical echogenicity. No evidence of mass stone or hydronephrosis BLADDER: Decompressed with Aj catheter CONCLUSION: Increased renal cortical echogenicity suggesting medical renal disease. No hydronephrosis. Reid Gardner MD on September 27, 2017 at 14:40 Board Certified Radiologist. This report was verified electronically.
--- NOTE | 2017-09-27 18:56 | HHI.NPPN ---
Subjective General Problems: Anemia, Hypotension Renal Failure: Acute History of Present Illness 67-year-old male with a past medical history of chronic liver disease, esophageal dialysis varices with ascites, hepatic cancer, who presented to the hospital with complaint of GI bleeding with hematemesis and anemia. I was called to see the patient because of elevated BUN and creatinine. Additional Remarks Patient seen in AM, remain intubated and on the vent., sedated. Review of Systems General General Remarks Intubated and sedated. Objective Data Data 09/27/17 09/28/17 18:59 06:59 Intake Total 160 ml Balance 160 ml IV Total 150 ml Blood Product IV Normal Saline Flush 10 ml Vital Signs Date Time Temp Pulse Resp B/P (MAP) Pulse Ox O2 Delivery O2 Flow Rate FiO2 09/27/17 17:27 93 94/58 09/27/17 14:32 99 Nasal Cannula 2.00 09/27/17 14:25 99 Nasal Cannula 2 09/27/17 13:19 100 40 09/27/17 13:19 40 09/27/17 12:00 97.4 67 16 100/64 (76) 100 09/27/17 11:44 100 50 09/27/17 10:15 66 17 87/54 100 09/27/17 10:00 68 18 85/51 100 09/27/17 09:45 63 16 103/62 100 09/27/17 09:30 63 17 91/57 100 09/27/17 09:15 66 18 95/63 100 09/27/17 09:00 69 16 92/62 100 09/27/17 08:45 71 16 89/62 100 09/27/17 08:30 69 16 92/62 100 09/27/17 08:25 97.4 70 16 91/61 (71) 100 09/27/17 08:20 97.4 71 17 91/61 100 09/27/17 08:12 100 50 09/27/17 08:06 71 16 87/58 100 09/27/17 08:00 88 09/27/17 08:00 50 09/27/17 06:00 80 09/27/17 05:37 81 107/69 09/27/17 04:50 100 50 09/27/17 04:00 87 09/27/17 04:00 98.8 87 18 104/69 (81) 100 09/27/17 04:00 50 09/27/17 02:00 100 60 09/27/17 02:00 82 09/27/17 00:00 60 09/27/17 00:00 77 09/27/17 00:00 96.3 77 19 106/73 (84) 100 09/26/17 23:18 100 60 09/26/17 22:04 94.3 78 33 100 09/26/17 22:00 74 09/26/17 20:00 100 09/26/17 20:00 66 21 122/77 (92) 100 09/26/17 20:00 66 09/26/17 19:52 99 100 09/26/17 19:00 69 128/79 -: 09/27/17 1314 09/27/17 0308 Microbiology 09/27/17 Gram Stain - Final, Resulted 09/27/17 Body Fluid Culture, Resulted Pending Physical Exam General Appearance Remarks Intubated and sedated. Eyes Eye Exam: Pupils Equal Pulmonary Resp Exam: Breath Sounds Equal, No Distress, Rhonchi, Sputum, Decreased Bases, Poor Inspiratory Effort Cardiology CV Exam: Regular Gastrointestinal/Abdomen GI Exam: Soft, Non-Tender, Bowel Sounds Present, Distended Extremeties Extremities Exam: Pitting Edema, Dependent Edema Neurologic Neuro Exam: Sedated Assessment/Plan Assessment Summary: BURAK/Acute Renal Failure, Hypotension Electrolyte Assessment: Metabolic Acidosis Problem List: (1) Respiratory failure ICD Codes: J96.90 - Respiratory failure, unspecified, unspecified whether with hypoxia or hypercapnia (2) Anemia ICD Codes: D64.9 - Anemia, unspecified Status: Acute (3) GI bleed ICD Codes: K92.2 - Gastrointestinal hemorrhage, unspecified Status: Acute (4) Thrombocytopenia ICD Codes: D69.6 - Thrombocytopenia, unspecified Status: Acute (5) Renal failure (ARF), acute on chronic ICD Codes: N17.9 - Acute kidney failure, unspecified; N18.9 - Chronic kidney disease, unspecified Status: Chronic Plan Patient has Acute kidney injury and metabolic acidosis. Now has been non oliguric. BP is better. Creatinine and Hco3 improving. Hgb.is better after transfusion. Results of EGD noted. On Protonix infusion. Avoid Nephrotoxins. Follow the urine out put and BMP. Problem Qualifiers (1) Anemia: Qualified Codes: D64.9 - Anemia, unspecified (2) Renal failure (ARF), acute on chronic: Qualified Codes: N17.9 - Acute kidney failure, unspecified; N18.3 - Chronic kidney disease, stage 3 (moderate) Reanna Estrada MD Sep 27, 2017 18:56
[2017-09-27] MEDS: RIFAXIMIN 550 MG TAB PO SCH (20:34)
[2017-09-27 21:28] LABS: OSMOLALITY,URINE 321 MOSM/KG (300-1300)
[2017-09-27 21:32] LABS: AMORPHOUS SEDIMENT, URINE RARE; BACTERIA, URINE OCC /hpf; BILIRUBIN, URINE NEG (NEG); BLOOD, URINE LARGE (NEG); GLUCOSE,URINE NEG (NEG); KETONE, URINE NEG (NEG); NITRITE,URINE NEG (NEG); URINE COLOR YELLOW (YELLW/STRAW); URINE LEUKOCYTE ESTERASE MOD (NEG)
[2017-09-27 21:33] LABS: SODIUM,RANDOM URINE 21 MEQ/L
[2017-09-28] VITALS (22 sets, daily range): BP systolic 80–127; BP diastolic 17–79; PULSE 63–86; RESP 12–20; TEMP 97.1–99; O2SAT 95–100
[2017-09-28] MEDS: ALBUMIN 25% INJ 100 ML IV SCH ×3 (00:52→17:20)
[2017-09-28] MEDS: SODIUM BICARBONATE 8.4% INJ 75 MEQ in SODIUM CHLOR 0.45% 1000 ML INJ 1,000 ML IV SCH ×2 (00:54→17:20)
[2017-09-28] MEDS: PANTOPRAZOLE INJ 80 MG in SODIUM CHLORIDE 0.9% INJ 100 ML IV SCH ×2 (02:46→11:58)
[2017-09-28] MEDS: OCTREOTIDE INJ 500 MCG in SODIUM CHLORID 0.9% 500 ML INJ 499.5 ML IV SCH (02:46)
[2017-09-28] MEDS: NOREPINEPHRINE INJ 4 MG in SODIUM CHLOR 0.9% 250 ML INJ 246 ML IV PRN (06:16)
[2017-09-28 07:03] LABS: INTERNATIONAL NORMALIZED RATIO 1.6 RATIO
[2017-09-28 07:13] LABS: AUTOMATED NEUTROPHIL # 3.3 TH/MM3 (1.8-7.7); BASOPHIL % 0.7 % (0.0-2.0); EOSINOPHIL # 0.1 TH/MM3 (0-0.4); EOSINOPHIL % 1.6 % (0.0-4.0); HEMATOCRIT 21.1 % (39.0-51.0); HEMOGLOBIN 7.7 GM/DL (13.0-17.0); LYMPH % 5.3 % (9.0-44.0); LYMPHOCYTE # 0.2 TH/MM3 (1.0-4.8); MEAN CELL VOLUME 90.2 FL (80.0-100.0); MEAN PLATELET VOLUME 7.6 FL (7.0-11.0); MONO % 8.4 % (0.0-8.0); MONOCYTE # 0.3 TH/MM3 (0-0.9); PLATELET COUNT 31 TH/MM3 (150-450); RED BLOOD COUNT 2.34 MIL/MM3 (4.50-5.90); RED CELL DISTRIBUTION WIDTH 20.5 % (11.6-17.2); WHITE BLOOD COUNT 3.9 TH/MM3 (4.0-11.0)
[2017-09-28 07:35] LABS: ALBUMIN 2.8 GM/DL (3.4-5.0); ALKALINE PHOSPHATASE 79 U/L (45-117); ALT (GPT) 18 U/L (12-78); AST (GOT) 22 U/L (15-37); BICARBONATE 19.2 MEQ/L (21.0-32.0); BLOOD UREA NITROGEN 80 MG/DL (7-18); CALCIUM 7.6 MG/DL (8.5-10.1); CHLORIDE 108 MEQ/L (98-107); CREATININE 3.47 MG/DL (0.60-1.30); GLOMERULAR FILTRATION RATE 18 ML/MIN (>89); GLUCOSE,RANDOM 118 MG/DL (74-106); PHOSPHORUS 3.8 MG/DL (2.5-4.9); SODIUM (NA) 140 MEQ/L (136-145); TOTAL BILIRUBIN ADULT 2.7 MG/DL (0.2-1.0)
[2017-09-28 07:41] LABS: MEAN CORPUSCULAR HGB CONC 36.6 % (32.0-36.0)
[2017-09-28] MEDS: CHLORHEXIDINE 0.12% (ORAL KIT) 15 ML CUP MT SCH ×2 (08:00→20:00)
[2017-09-28] MEDS ORDERED: PHYTONADIONE INJ 10 MG in SODIUM CHLORIDE 0.9% INJ 50 ML IV ONE (08:00)
[2017-09-28] MEDS ORDERED: NOREPINEPHRINE INJ 4 MG in SODIUM CHLOR 0.9% 250 ML INJ 246 ML IV PRN (08:00)
--- NOTE | 2017-09-28 08:05 | HHI.CCPN ---
Subjective Remarks/Hospital Course Patient is a 67 year old male with past medical history significant for hepatocellular carcinoma, liver cirrhosis, previous variceal bleed status post banding 4 years ago, history of nephrectomy, hypertension diabetes who presented to the ED with feeling weak and dizzy for the last 2 days and the hematemesis since yesterday evening. He has not had any episodes of hematemesis today. His hemoglobin was 6.3 with hematocrit 17.7. Initial blood pressure was 82/53. Patient received crystalloid fluid boluses. And was also ordered to receive 2 units of PRBC and 1 packed unit of platelet, platelet count 59. BUN/creat 96/4.34. Patient was also started on Protonix infusion. [facility] with [facility] critical care. I evaluated the patient in the emergency department, patient is borderline hypotensive and lethargic but awake alert and follows commands. He states that he does not regularly follow up with doctors and do not see a oracle adf developer. Last endoscopy was about 3 years ago gets ascites drained every two weeks. I have placed order for Octreotide infusion, and ordered 2 units of FFP. Discussed with Dr. Greenberg who is planning to do upper endoscopy today. Was also noted on the bedside ultrasound that the patient has significant ascites SUBJ 09/27: Patient remains intubated and sedated Levophed started overnight for worsening hypotension. Getting additional 1 unit PRBC today for hemoglobin of 7.4 with hypotension. Severe ascites need paracentesis today. EGD showed Grade 1 esophageal varices, Mild portal gastropathy, Duodenal AVM which was cauterized by Dr. Greenberg 09/28: Remains on Levophed at 4 mcg/min to maintain map above 65. Hemoglobin 7.7 but the platelet count dropped to 31, INR 1.6. Transfuse 1 packed unit of platelets and 1 FFP. BUN/creatinine remains elevated at 80/3.47 but improving. Urine output 2 L in 24 hours. Patient is status post large volume paracentesis yesterday 10.3 L removed. Objective Vital Signs Date Time Temp Pulse Resp B/P (MAP) Pulse Ox O2 Delivery O2 Flow Rate FiO2 09/28/17 06:50 70 99/58 09/28/17 04:00 98.0 13 95 09/27/17 16:00 50 09/27/17 14:32 Nasal Cannula 2.00 Intake and Output 09/28/17 09/28/17 09/28/17 07:59 15:59 23:59 Intake Total 1940 ml Output Total 775 ml Balance 1165 ml Result Diagram: 09/28/17 0559 09/28/17 0559 Other Results Laboratory Tests Test 09/27/17 13:42 Blood Gas Puncture Site RT RADIAL Blood Gas Patient Temperature 98.6 Blood Gas HCO3 17 mmol/L (22-26) Blood Gas Base Excess -6.2 mmol/L (-2-2) Blood Gas Oxygen Saturation 97 % (90-100) Arterial Blood pH 7.50 (7.380-7.420) Arterial Blood Partial Pressure CO2 22 mmHg (38-42) Arterial Blood Partial Pressure O2 178 mmHg (61-120) Arterial Blood Oxygen Content 15.8 Vol % (12.0-20.0) Arterial Blood Carboxyhemoglobin 1.4 % (0-4) Arterial Blood Methemoglobin 1.4 % (0-2) Blood Gas Hemoglobin 11.3 G/DL (12.0-16.0) Oxygen Delivery Device VENTILATOR Blood Gas Ventilator Setting CPAP/5/+5/40% Blood Gas Inspired Oxygen 40 % Objective Remarks GENERAL: This is a well-nourished, well-developed patient, lying in bed weak SKIN: Cool and dry. Pale HEAD: Atraumatic. Normocephalic. EYES: Pupils equal round and reactive.No scleral icterus. No injection or drainage. ENT: Oral cavity is moist NECK: Trachea midline. No JVD or lymphadenopathy. Supple, nontender CARDIOVASCULAR: Regular rate and rhythm without murmurs, gallops, or rubs. Hypotensive on Levophed RESPIRATORY: Breath sounds equal bilaterally. No wheezes, rales, or rhonchi. GASTROINTESTINAL: Abdomen soft, non-tender, distended. +ve fluid thrill MUSCULOSKELETAL: Extremities without clubbing, cyanosis NEUROLOGICAL: Alert awake oriented slightly slurred speech no focal deficits A/P Assessment and Plan ASSESSMENT: Upper GIB, (EGD 09/26 showing duodenal AVM, grade 1 varices, portal gastropathy) Anemia requiring transfusion Hypotension Coagulopathy, thrombocytopenia Ascites Acute kidney failure Hepatic encephalopathy Hyperammonemia Liver cirrhosis Hepatocellular carcinoma History of alcohol dependence History of nephrectomy PLAN: NEURO: -Lactulose 30 mL 4 times daily -Repeat ammonia level a.m. slightly improved to 61 today RESP: -Intubated for worsening respiratory failure, extubated 09/28, now DNR -DuoNeb q6hrs PRN -Patient and family does not want reintubation CV: -On Levophed to keep MAP>65, reduce MAP target to >60 due chronic liver disease and hypertension -Normal saline IV fluid 84 ml per hour -Blood and blood product transfusion as below -Cannot use beta-blockers for esophageal varices due to hypotension -IV Albumin 25 GM q12 GI: -Protonix 8mg per hour gtt -On Octreotide 50 mcg/hour. DC if ok with GI -EGD 09/26-found to have grade 1 varices, portal gastropathy, duodenal AVM. Dr. Greenberg cauterized duodenal AVM -Rocephin for SBP prophylaxis -s/p Paracentesis due to large volume ascites. 10.3L removed 09/27/17 -Lactulose 30 mL 4 times daily : -Monitor renal function closely. Worsening renal function most likely secondary to ATN, slowly improving -Aj catheter. Strict I's and O's -Nephrology Dr. Estrada, renal US-shows evidence of medical renal disease ID: -Rocephin for SBP prohylaxis -f/uBlood culture, ascitic fluid studies HEME: -Transfused 2U PRBC, 2U FFP and and 1 pk unit 09/26 -Additional 1 unit PRBC and 1 packed unit of platelets 09/27/17 -Transfuse 1 packed unit of platelets in 1 week to day 09/28/17 -Monitor CBC, CMP, coags, H/H q6h ENDO: -Watch for hyperkalemia PROPH: Bilateral lower extremity SCDs/TURNER. Protonix gtt. Chemical DVT prophylaxis contraindicated LINES: Utilize peripheral IVs, place central line if needed CC time 35 min discontinuously excluding procedure time Patient remains critically ill at this time with Levophed requirement, and requiring additional blood products. Patient has severe ascites s/p large volume paracentesis yesterday. Continue ICU care due to risk of acute decompensation Thierry Mathews MD Sep 28, 2017 08:05
[2017-09-28] MEDS: LACTULOSE SYRUP 20 GM/30 ML CUP PO SCH ×3 (08:55→20:16)
[2017-09-28] MEDS: VITAMIN E 400 UNIT CAP PO SCH (08:55)
[2017-09-28] MEDS: RIFAXIMIN 550 MG TAB PO SCH ×2 (08:55→20:16)
[2017-09-28] MEDS: SODIUM CHLORIDE 0.9% FLUSH 10 ML FLUSH IV FLUSH SCH ×2 (09:00→20:16)
[2017-09-28] MEDS ORDERED: ERGOCALCIFEROL (VIT D2) 50,000 UNIT CAP PO SCH (09:00)
--- NOTE | 2017-09-28 09:11 | HHI.FPPN ---
Subjective Remarks Vitals: 97.7, P 66, BP 96/56, 99% on RA Extubated yesterday Lying in bed, complains of being cold Patient currently on Levophed for BP management Currently receiving 1 unt of FFP for plts- 31 s/p paracentesis (10.3 L removed) and EGD demonstrated grade 1 esophageal varices, mild portal gastropathy, and duodenal AVM, which was cauterized (Vida Beal MD R1) Objective Vitals Vital Signs Date Time Temp Pulse Resp B/P (MAP) Pulse Ox O2 Delivery O2 Flow Rate FiO2 09/28/17 06:50 70 99/58 09/28/17 06:16 70 121/68 09/28/17 06:00 72 09/28/17 05:40 76 102/64 09/28/17 05:10 82 94/61 09/28/17 04:01 66 118/67 09/28/17 04:00 98.0 66 13 118/17 (50) 95 09/28/17 04:00 66 09/28/17 02:00 66 09/28/17 00:20 100 74/51 09/28/17 00:10 84 82/49 09/28/17 00:00 99.0 86 16 80/45 (57) 100 09/28/17 00:00 86 09/28/17 00:00 86 80/45 09/27/17 23:11 98 09/27/17 22:00 92 09/27/17 21:30 98 74/46 09/27/17 21:00 95 71/50 09/27/17 20:30 99 80/52 09/27/17 20:00 97.9 99 19 88/55 (66) 94 09/27/17 20:00 99 09/27/17 19:00 76 87/55 09/27/17 17:27 93 94/58 09/27/17 16:00 98.3 70 16 100/59 (73) 100 09/27/17 16:00 50 09/27/17 14:32 99 Nasal Cannula 2.00 09/27/17 14:25 99 Nasal Cannula 2 09/27/17 13:19 100 40 09/27/17 13:19 40 09/27/17 12:00 97.4 67 16 100/64 (76) 100 09/27/17 12:00 50 09/27/17 11:44 100 50 09/27/17 10:15 66 17 87/54 100 09/27/17 10:00 68 18 85/51 100 09/27/17 10:00 68 85/51 09/27/17 09:45 63 16 103/62 100 09/27/17 09:30 63 17 91/57 100 09/27/17 09:15 66 18 95/63 100 I/O 09/27/17 09/27/17 09/27/17 09/28/17 09/28/17 09/28/17 06:59 14:59 22:59 06:59 14:59 22:59 Intake Total 25 ml 1962.04 ml 820 ml 1940 ml Output Total 550 ml 1702 ml 775 ml Balance -525 ml 1962.04 ml -882 ml 1165 ml Intake Oral 0 ml IV Total 1305.04 ml 820 ml 1940 ml Packed Cells 400 ml Platelets 237 ml Blood Product IV Normal Saline Flush 25 ml 20 ml Output Urine Total 400 ml 1400 ml 575 ml Stool Total 0 ml 2 ml 200 ml Gastric Drainage Total 150 ml 300 ml # Bowel Movements 4 3 (Vida Beal MD R1) Result Diagram: 09/28/17 0559 09/28/17 0559 Objective Remarks GENERAL: lethargic, pale somewhat cachectic male SKIN: Pale, dry. HEAD: Atraumatic. Normocephalic. EYES: Pupils equal round and reactive. Extraocular motions intact. Pallor conjunctiva. No sclera icterus. ENT: Nose without bleeding, purulent drainage or septal hematoma. Throat without erythema, tonsillar hypertrophy or exudate. Uvula midline. Airway patent on admission. NECK: Trachea midline. No JVD or lymphadenopathy. Supple, nontender, no meningeal signs. CARDIOVASCULAR: Regular rate and rhythm without murmurs, gallops, or rubs. RESPIRATORY: Clear to auscultation. Breath sounds equal bilaterally. No wheezes , rales, or rhonchi. GASTROINTESTINAL: scaphoid abdomen soft, s/p paracentesis, + BS. MUSCULOSKELETAL: Extremities without clubbing, cyanosis, or edema. No joint tenderness, effusion, or edema noted. NEUROLOGICAL: alert, awake, oriented x3 (Vida Beal MD R1) A/P Assessment and Plan 67-year-old male patient with history of esophageal varices, ascites, recent diagnosis of hepatocellular carcinoma, following up with Dr. Nixon, presents to the ED with hematemesis. Patient transferred to ICU due to significant hypotension and general high risk condition. Unsure how he will do with his general frail and chronically ill state. His liver failure is end stage and any problem is always worse. His renal function is poor but stable. (Vida Beal MD R1) Attending Attestation Patient seen and examined. Case reviewed and discussed with the resident team. Agree with plan of care as discussed with me and documented in the resident note. greatly appreciate help of Intensivists. Hopefully he can be weaned off pressors today (Lala Myers MD) Problem List: (1) Upper GI bleed ICD Codes: K92.2 - Gastrointestinal hemorrhage, unspecified Plan: 2 day hx of hematemesis, suspected upper GI bleed EGD on 09/27 showed Grade 1 esophageal varices, mild portal gastropathy, duodenal AVM, which was cauterized by Dr. Greenberg Continue Octreotide Drip 50mcg/hour and Protonix drip 8mg/hr Rocephin 1,000mg IV q24h (started 09/26) for SBP ppx (2) Anemia ICD Codes: D64.9 - Anemia, unspecified Status: Acute Plan: Secondary to upper GI bleed but also was anemic prior to bleed Hb 7.7 but platelet count dropped to 31, transfusing 1 unit of FFP today H&H q6h Transfused 2U PRBC, 2U FFP and and 1 pk unit 09/26 -Additional 1 unit PRBC and 1 packed unit of platelets 09/27/17 (3) Thrombocytopenia ICD Codes: D69.6 - Thrombocytopenia, unspecified Status: Acute Plan: Plt 31 today 1 unit of FFP ordered for today continue to monitor likely from cirrhosis (4) Hypotension ICD Codes: I95.9 - Hypotension, unspecified Plan: On Levophed to keep MAP>65, reduce MAP target to >60 due chronic liver disease and hypertension -Normal saline IV fluid 84 ml per hour -Blood and blood product transfusion as below -Cannot use beta-blockers for esophageal varices due to hypotension -IV Albumin 25 GM q12 (5) Cirrhosis ICD Codes: K74.60 - Unspecified cirrhosis of liver Plan: MELD score of 28 -Continue Lactulose 30ml PO qid (09/27-) -Continue Rifaximin 550mg PO bid (09/27-) (6) Ascites ICD Codes: R18.8 - Other ascites Plan: s/p paracentesis 10.3 L removed on 09/27 (7) Renal failure (ARF), acute on chronic ICD Codes: N17.9 - Acute kidney failure, unspecified; N18.9 - Chronic kidney disease, unspecified Status: Chronic Plan: Monitor renal function closely. Worsening renal function most likely secondary to ATN, slowly improving -Aj catheter. Strict I's and O's -Nephrology Dr. Estrada, renal US-shows evidence of medical renal disease (8) Nutrition, metabolism, and development symptoms ICD Codes: R63.8 - Other symptoms and signs concerning food and fluid intake Plan: Diet: NPO Fluids: NS 84mls/hr vitals q4h, strict I& Os, cardiac telemetry DVT ppx: SCDs/TURNER (Vida Beal MD R1) Problem Qualifiers (1) Anemia: Qualified Codes: D64.9 - Anemia, unspecified (2) Renal failure (ARF), acute on chronic: Qualified Codes: N17.9 - Acute kidney failure, unspecified; N18.3 - Chronic kidney disease, stage 3 (moderate) Vida Beal MD R1 Sep 28, 2017 09:10 Lala Myers MD Oct 01, 2017 08:05
[2017-09-28] MEDS ORDERED: DOBUTamine PREMIX DRIP 250 ML IV PRN ×2 (09:30→10:30)
[2017-09-28 13:35] LABS: AMYLASE BODY FLUID 30 U/L; AMYLASE BODY FLUID TYPE PERITONEAL
[2017-09-28] MEDS: cefTRIAXone INJ 1,000 MG in SODIUM CHLORIDE 0.9% INJ 100 ML IV SCH (14:06)
--- NOTE | 2017-09-28 15:45 | HHI.GIFU ---
Subjective Remarks Awake, responding to conversation in room Patient is hungry and asking for food No active shortness of breath noted at rest (Marilyn Snowden) Objective Vitals I&O Vital Signs Date Time Temp Pulse Resp B/P (MAP) Pulse Ox O2 Delivery O2 Flow Rate FiO2 09/28/17 13:00 97.6 70 20 118/68 100 09/28/17 12:50 97.6 70 18 110/79 100 09/28/17 12:35 97.6 66 18 104/62 100 09/28/17 12:20 97.6 64 16 118/67 100 09/28/17 12:05 97.6 66 16 127/64 100 09/28/17 11:50 97.6 63 16 127/64 100 09/28/17 11:38 97.1 63 16 103/58 100 09/28/17 09:56 97.7 66 16 96/56 99 09/28/17 09:51 99 09/28/17 06:50 70 99/58 09/28/17 06:16 70 121/68 09/28/17 06:00 72 09/28/17 05:40 76 102/64 09/28/17 05:10 82 94/61 09/28/17 04:01 66 118/67 09/28/17 04:00 98.0 66 13 118/17 (50) 95 09/28/17 04:00 66 09/28/17 02:00 66 09/28/17 00:20 100 74/51 09/28/17 00:10 84 82/49 09/28/17 00:00 99.0 86 16 80/45 (57) 100 09/28/17 00:00 86 09/28/17 00:00 86 80/45 09/27/17 23:11 98 09/27/17 22:00 92 09/27/17 21:30 98 74/46 09/27/17 21:00 95 71/50 09/27/17 20:30 99 80/52 09/27/17 20:00 97.9 99 19 88/55 (66) 94 09/27/17 20:00 99 09/27/17 19:00 76 87/55 09/27/17 17:27 93 94/58 09/27/17 16:00 98.3 70 16 100/59 (73) 100 09/27/17 16:00 50 I/O 09/27/17 09/27/17 09/27/17 09/28/17 09/28/17 09/28/17 07:00 15:00 23:00 07:00 15:00 23:00 Intake Total 201.16 ml 2073.88 ml 532 ml 1940 ml 318 ml Output Total 550 ml 1702 ml 775 ml Balance -348.84 ml 2073.88 ml -1170 ml 1165 ml 318 ml Intake Oral 0 ml IV Total 176.16 ml 1416.88 ml 532 ml 1940 ml Packed Cells 400 ml Platelets 237 ml 288 ml Blood Product IV Normal Saline Flush 25 ml 20 ml 30 ml Output Urine Total 400 ml 1400 ml 575 ml Stool Total 0 ml 2 ml 200 ml Gastric Drainage Total 150 ml 300 ml # Bowel Movements 4 3 Laboratory Laboratory Tests Test 09/27/17 18:30 09/28/17 05:59 Urine Color YELLOW Urine Turbidity HAZY Urine pH 5.0 Urine Specific Sheldon 1.011 Urine Protein TRACE Urine Glucose (UA) NEG Urine Ketones NEG Urine Occult Blood LARGE Urine Nitrite NEG Urine Bilirubin NEG Urine Urobilinogen LESS THAN 2.0 Urine Leukocyte Esterase MOD Urine RBC 15 Urine WBC 15 Urine Amorphous Sediment RARE Urine Bacteria OCC Microscopic Urinalysis Comment CULTURE INDICATED Urine Osmolality 321 Urine Random Sodium 21 White Blood Count 3.9 Red Blood Count 2.34 Hemoglobin 7.7 Hematocrit 21.1 Mean Corpuscular Volume 90.2 Mean Corpuscular Hemoglobin 33.0 Mean Corpuscular Hemoglobin Concent 36.6 Red Cell Distribution Width 20.5 Platelet Count 31 Mean Platelet Volume 7.6 Neutrophils (%) (Auto) 84.0 Lymphocytes (%) (Auto) 5.3 Monocytes (%) (Auto) 8.4 Eosinophils (%) (Auto) 1.6 Basophils (%) (Auto) 0.7 Neutrophils # (Auto) 3.3 Lymphocytes # (Auto) 0.2 Monocytes # (Auto) 0.3 Eosinophils # (Auto) 0.1 Basophils # (Auto) 0.0 CBC Comment AUTO DIFF Differential Comment AUTO DIFF CONFIRMED Platelet Estimate LOW Platelet Morphology Comment NORMAL Prothrombin Time 16.0 Prothromb Time International Ratio 1.6 Blood Urea Nitrogen 80 Creatinine 3.47 Random Glucose 118 Total Protein 6.0 Albumin 2.8 Calcium Level 7.6 Phosphorus Level 3.8 Magnesium Level 2.0 Alkaline Phosphatase 79 Aspartate Amino Transf (AST/SGOT) 22 Alanine Aminotransferase (ALT/SGPT) 18 Total Bilirubin 2.7 Sodium Level 140 Potassium Level 3.3 Chloride Level 108 Carbon Dioxide Level 19.2 Anion Gap 13 Estimat Glomerular Filtration Rate 18 Ammonia 61 Date/Time Source Procedure Growth Status 09/27/17 09:45 Fluid Peritoneal Fluid Gram Stain - Final Resulted 09/27/17 09:45 Fluid Peritoneal Fluid Body Fluid Culture - Preliminary NO GROWTH IN 24 HOURS. Resulted 09/27/17 18:30 Urine Clean Catch Urine Culture - Preliminary RESULTS PENDING Resulted Imaging Last Impressions Renal Ultrasound 09/27/17 0000 Signed Impressions: Service Date/Time: September 11:25 - CONCLUSION: Increased renal cortical echogenicity suggesting medical renal disease. No hydronephrosis. Reid Gardner MD Chest X-Ray 09/26/17 0000 Signed Impressions: Service Date/Time: Tuesday, September 26, 2017 23:26 - CONCLUSION: Left jugular line placement as above. Rashaad Lee MD Physical Exam HEENT: Normocephalic; atraumatic, mild icteric sclera noted CHEST: Mild diminished lung sounds especially in the bases, no obvious rhonchi, O2 per nasal cannula if needed CARDIAC: RRR ABDOMEN: Round , mild to moderate bloating , Soft, bowel sounds active EXTREMITIES: No clubbing, cyanosis, or edema. SKIN: Pale, icteric RECORDS ASSOCIATE: Awake, knows where he is in answering simple questions appropriately (Marilyn Snowden) Assessment and Plan Plan ASSESSMENT - hematemesis - resolved , no nausea no vomiting , appetite is returning today . hx esophageal varices. EGD and banding varices 4 y ago - anemia - 7.7 on 09/28/17, received FFP and platelets today. states this is around his norm - coagulopathy - secondary to his cirrhosis - History of cirrhosis, EGD performed on 09/26/17, varices, mild portal gastropathy, AVM duodenum status post ablation. Patient tolerated procedure well 09/27/17 paracentesis , 10.3 liters taken off, patient is now extubated off ventilator to nasal cannula no acute shortness of breath noted at rest, but still has some mild to moderate bloating. PLAN -Diet full liquids, discussed with and patient at length to monitor for any nausea or vomiting. If patient tolerates will increase diet to soft foods. - Protonix gtt DC'd , Changed to IV every 12 hr. - Monitor Abdominal girth. - Lactulose - Rifaximin - Monitor labs with special attention to hemoglobin in a.m. since patient received transfusions today - Notify GI of continued bleeding - Supportive care to patient and - Further recommendations will be based on patient's symptom needs Pt seen by myself and Dr. Greenberg and this note is written on his behalf (Marilyn Snowden) Physician Comments Patient seen and examined Agree with above Continue with current supportive care Monitor labs Fluid balance and diuresis we will defer to nephrology (Mukul Greenberg MD) Marilyn Snowden Sep 28, 2017 15:45 Mukul Greenberg MD Sep 28, 2017 18:54
--- NOTE | 2017-09-28 16:21 | HHI.NPPN ---
Subjective General Problems: Anemia, Hypotension Renal Failure: Acute History of Present Illness 67-year-old male with a past medical history of chronic liver disease, esophageal dialysis varices with ascites, hepatic cancer, who presented to the hospital with complaint of GI bleeding with hematemesis and anemia. I was called to see the patient because of elevated BUN and creatinine. Additional Remarks OOB in chair. Denies any SOB. Is wondering when he is being discharged. Still on low dose pressors (Yuli Lim) Review of Systems General General Remarks Intubated and sedated. (Yuli Lim) Respiratory Respiratory Remarks No SOB (Yuli Lim) Cardiovascular Cardiac Remarks No CP (Yuli Lim) Objective Data Data 09/28/17 09/29/17 19:00 07:00 Intake Total 318 ml Balance 318 ml Platelets 288 ml Blood Product IV Normal Saline Flush 30 ml Vital Signs Date Time Temp Pulse Resp B/P (MAP) Pulse Ox O2 Delivery O2 Flow Rate FiO2 09/28/17 13:00 97.6 70 20 118/68 100 09/28/17 12:50 97.6 70 18 110/79 100 09/28/17 12:35 97.6 66 18 104/62 100 09/28/17 12:20 97.6 64 16 118/67 100 09/28/17 12:05 97.6 66 16 127/64 100 09/28/17 11:50 97.6 63 16 127/64 100 09/28/17 11:38 97.1 63 16 103/58 100 09/28/17 09:56 97.7 66 16 96/56 99 09/28/17 09:51 99 09/28/17 06:50 70 99/58 09/28/17 06:16 70 121/68 09/28/17 06:00 72 09/28/17 05:40 76 102/64 09/28/17 05:10 82 94/61 09/28/17 04:01 66 118/67 09/28/17 04:00 98.0 66 13 118/17 (50) 95 09/28/17 04:00 66 09/28/17 02:00 66 09/28/17 00:20 100 74/51 09/28/17 00:10 84 82/49 09/28/17 00:00 99.0 86 16 80/45 (57) 100 09/28/17 00:00 86 09/28/17 00:00 86 80/45 09/27/17 23:11 98 09/27/17 22:00 92 09/27/17 21:30 98 74/46 09/27/17 21:00 95 71/50 09/27/17 20:30 99 80/52 09/27/17 20:00 97.9 99 19 88/55 (66) 94 09/27/17 20:00 99 09/27/17 19:00 76 87/55 09/27/17 17:27 93 94/58 (Yuli Lim) -: 09/28/17 0559 09/28/17 0559 Microbiology 09/27/17 Urine Culture - Preliminary, Resulted RESULTS PENDING (Yuli Lim) Physical Exam General Appearance: Comfortable (Reanna Estrada MD) Eyes Eye Exam: Pupils Equal (Yuli Lim) Throat Throat Exam: Oral Mucosa [place] & Moist (Reanna Estrada MD) Pulmonary Resp Exam: Clear Bilaterally, Breath Sounds Equal, No Distress (Yuli Lim) Resp Exam: Rhonchi, Decreased Bases (Reanna Estrada MD) Cardiology CV Exam: Regular (Yuli Lim) Gastrointestinal/Abdomen GI Exam: Soft, Non-Tender, Bowel Sounds Present, Distended (Yuli Lim) Genitourinary Remarks malhotra present (Yuli Lim) Integumentary Skin Exam: Clear, Warm (Yuli Lim) Extremeties Extremities Exam: Pitting Edema, Dependent Edema (Yuli Lim) Neurologic Neuro Exam: Alert, Awake (Yuli Lim) Psychiatric Psych Exam: Appropriate Responses (Yuli Lim) Assessment/Plan Assessment Summary: BURAK/Acute Renal Failure, Hypotension Electrolyte Assessment: Metabolic Acidosis Problem List: (1) Respiratory failure ICD Codes: J96.90 - Respiratory failure, unspecified, unspecified whether with hypoxia or hypercapnia (2) Anemia ICD Codes: D64.9 - Anemia, unspecified Status: Acute (3) GI bleed ICD Codes: K92.2 - Gastrointestinal hemorrhage, unspecified Status: Acute (4) Thrombocytopenia ICD Codes: D69.6 - Thrombocytopenia, unspecified Status: Acute (5) Renal failure (ARF), acute on chronic ICD Codes: N17.9 - Acute kidney failure, unspecified; N18.9 - Chronic kidney disease, unspecified Status: Chronic Plan Patient has Acute kidney injury and metabolic acidosis. Now has been non oliguric with 1975ml over past 24 hours has malhotra to SD BP is better still on low dose pressors Creatinine slightly improved at 3.47 from 3.86 Hgb.is better after transfusion. PLT 31 FFP given Results of EGD noted. On Protonix infusion. Avoid Nephrotoxins. Follow the urine out put and BMP. (Yuli Lim) Plan Patient seen and examined, agree with above. Non Oliguric and slight improvement in the Creatinine. (Reanna Estrada MD) Problem Qualifiers (1) Anemia: Qualified Codes: D64.9 - Anemia, unspecified (2) Renal failure (ARF), acute on chronic: Qualified Codes: N17.9 - Acute kidney failure, unspecified; N18.3 - Chronic kidney disease, stage 3 (moderate) Yuli Lim Sep 28, 2017 16:20 Reanna Estrada MD Sep 28, 2017 20:50
--- NOTE | 2017-09-28 18:21 | MB ---
cc: STAR STEINER M.D. DATE OF CONSULTATION: 09/28/2017. REASON FOR CONSULTATION: Consult requested by Dr. Mathews for evaluation and management of cholangiocarcinoma. HISTORY OF PRESENT ILLNESS: Alton is a 67-year-old male. He has a history of alcoholic cirrhosis. He was found to have a liver mass in 2015 when he used to live in [place]. He had a biopsy which showed cholangiocarcinoma but hepatocellular carcinoma cannot be ruled out either. The CA 19-9 was elevated but the alpha-fetoprotein was normal. He had a TACE procedure and this was followed by radiofrequency ablation twice, the last one was in January of 2017. The patient subsequently moved to [place]. He was evaluated at [facility] last June for possible liver transplant. They did the work up and found that he is not a candidate for the liver transplant as he was found to have a new tumor in the liver. The patient was referred to me for further evaluation. I saw the patient in our [place] office. I have reviewed his pathology report from [place], which was reviewed at [facility] in [place] as well. The pathologist mentioned that this is a cholangiocarcinoma; however, hepatocellular carcinoma or other malignancies cannot be ruled out. I have advised the patient to undergo another liver biopsy to find whether he has hepatocellular carcinoma or cholangiocarcinoma as the treatment is entirely different. The patient agreed with that. He was referred to the interventional radiologist about a [id number]-[id number]-half ago; however, the patient was hypotensive and had severe anemia. The patient had received blood transfusion but the procedure was deferred due to the severe hypotension. The patient is not on any antihypertensive medications. He came to see me this past Sunday in our [place] office. I have recommended to get a PET scan which was scheduled for today and he was scheduled to have a biopsy of the liver mass next week Sunday; however, the patient now is admitted to the hospital with GI bleeding. He had hematemesis and was hypotensive. The patient is admitted to the hospital. He went into respiratory failure which required ventilator support. The patient was extubated yesterday. I have been asked to see the patient for further evaluation. The patient's daughter was present at the bedside. She stated that the patient looks much better since admission. No further bleeding is noted. 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 The patient had received multiple blood transfusions and he appears to have been stabilized. The patient has been complaining of weakness and fatigue. He denies any nausea or vomiting. He is complaining of abdominal discomfort and distension. He had therapeutic paracentesis yesterday and around 10 liters were removed. His appetite is poor. He is losing weight. Rest of the review of system is negative. PAST MEDICAL HISTORY: 1. Alcoholic cirrhosis. 2. Hepatocellular carcinoma versus cholangiocarcinoma. 3. Alcoholism. 4. Hypertension. 5. Diabetes mellitus. 6. Cirrhosis of the liver with esophageal varices. PAST SURGICAL HISTORY: 1. Esophageal varices banding. 2. Kidney removal when he was young. 3. Inguinal hernia repair. 4. Rotator cuff repair in the right shoulder. ALLERGIES: ALDACTONE, WHICH CAUSES BREAST TENDERNESS. FAMILY HISTORY: Significant for bladder cancer in his dad. SOCIAL HISTORY: The patient is and lives with his . He used to live in [place] and moved here recently. He used to smoke cigarettes one pack a day for at least forty years and quit five years ago. He also used to drink alcohol heavily and quit thirteen years ago. PHYSICAL EXAMINATION: GENERAL: This is a well-developed, chronically ill-appearing white male. VITAL SIGNS: Temperature 97.6, heart rate is 70, blood pressure 180/68. HEAD, EYES, EARS, NOSE, THROAT: Pupils equal, round and reactive to light and accommodation. Extraocular muscles intact. Anicteric. No oral lesions are noted. NECK: No lymphadenopathy noted. LUNGS: Clear. No wheezes, rales or rhonchi. HEART: Regular rate and rhythm. ABDOMEN: Abdomen is soft and distended. Ascites noted. EXTREMITIES: Edema noted. NEUROLOGIC: Awake, alert and oriented times three. ASSESSMENT: 1. Liver mass, either cholangiocarcinoma, but hepatocellular carcinoma cannot be ruled out, status post TACE procedure followed by radiofrequency ablation on two separate occasions. 2. Alcoholic cirrhosis with significant ascites. 3. Esophageal variceal bleed. PLAN: I have reviewed his available records and I have discussed with the patient and his daughter regarding further treatment plan. He was admitted with GI bleeding and had hematemesis. He underwent upper endoscopy, which showed a duodenal AVM and he had cauterization. He was found to have esophageal varices as well. The patient's is an RN but she is not present at this time. His daughter was present and we had discussed his care as well. At this point, my recommendation is to get a PET scan as an outpatient. Based on the PET scan findings, then he will be referred to the interventional radiologist for biopsy. The patient has agreed with the plan. Further recommendations based on his hospital stay. Thank you for asking my opinion. MD ALLI Arzola/MATT /5:40 PM /6:04 PM [email or web address]
[2017-09-28] MEDS: PANTOPRAZOLE SODIUM 40 MG VIAL IV PUSH SCH (20:16)
[2017-09-29] VITALS (15 sets, daily range): BP systolic 87–129; BP diastolic 51–77; PULSE 60–73; RESP 11–24; TEMP 97.6–99; O2SAT 95–100
[2017-09-29] MEDS: ALBUMIN 25% INJ 100 ML IV SCH ×3 (00:52→16:39)
[2017-09-29] MEDS ORDERED: MELATONIN 5 MG TAB PO PRN (02:30)
[2017-09-29] MEDS ORDERED: MELATONIN 5 MG TAB PO ONE (02:30)
--- NOTE | 2017-09-29 04:44 | RADRPT ---
EXAM DATE/TIME: 09/29/2017 03:11 [facility] COMPARISON: CHEST SINGLE AP, September 26, 2017, 23:26. INDICATIONS : Shortness of breath, possible pulmonary disease. MEDICAL HISTORY : Cirrhosis. Hypertension Hepatocellular carcinoma Esophageal varices SURGICAL HISTORY : Inguinal hernia repair. Nephrectomy ENCOUNTER: Subsequent ACUITY: 3 days PAIN SCORE: Non-responsive. LOCATION: Bilateral chest FINDINGS: Right IJ line is present with tip overlapping the expected region of the SVC. The other tubes have be en removed. There is mild improvement in the aeration of the lungs with persistent haziness involving both lungs and the perivascular interstitial process. Consolidation in lower lungs and bilateral ple ural effusions are also suspected. CONCLUSION: Mild improvement in the aeration of the lungs. Marisela Looney MD on September 29, 2017 at 4:41 Board Certified Radiologist. This report was verified electronically.
[2017-09-29] MEDS: SODIUM BICARBONATE 8.4% INJ 75 MEQ in SODIUM CHLOR 0.45% 1000 ML INJ 1,000 ML IV SCH (06:15)
[2017-09-29 06:38] LABS: AUTOMATED NEUTROPHIL # 1.5 TH/MM3 (1.8-7.7); BASOPHIL % 0.9 % (0.0-2.0); EOSINOPHIL % 2.1 % (0.0-4.0); LYMPH % 6.7 % (9.0-44.0); LYMPHOCYTE # 0.1 TH/MM3 (1.0-4.8); MEAN CELL VOLUME 90.8 FL (80.0-100.0); MEAN CORPUSCULAR HEMOGLOBIN 32.6 PG (27.0-34.0); MEAN CORPUSCULAR HGB CONC 35.9 % (32.0-36.0); MEAN PLATELET VOLUME 7.3 FL (7.0-11.0); MONOCYTE # 0.2 TH/MM3 (0-0.9); NEUT % 80.3 % (16.0-70.0); PLATELET COUNT 28 TH/MM3 (150-450); RED BLOOD COUNT 2.14 MIL/MM3 (4.50-5.90); RED CELL DISTRIBUTION WIDTH 20.5 % (11.6-17.2); WHITE BLOOD COUNT 1.9 TH/MM3 (4.0-11.0)
[2017-09-29 06:48] LABS: INTERNATIONAL NORMALIZED RATIO 1.5 RATIO; PROTHROMBIN TIME - PATIENT 15.5 SEC (9.8-11.6)
[2017-09-29 07:07] LABS: ALBUMIN 3.2 GM/DL (3.4-5.0); ALT (GPT) 18 U/L (12-78); AST (GOT) 16 U/L (15-37); BLOOD UREA NITROGEN 71 MG/DL (7-18); CALCIUM 7.9 MG/DL (8.5-10.1); CHLORIDE 108 MEQ/L (98-107); CREATININE 3.31 MG/DL (0.60-1.30); GLOMERULAR FILTRATION RATE 19 ML/MIN (>89); GLUCOSE,RANDOM 149 MG/DL (74-106); HEMATOCRIT 19.4 % (39.0-51.0); SODIUM (NA) 140 MEQ/L (136-145)
[2017-09-29 07:09] LABS: ALKALINE PHOSPHATASE 71 U/L (45-117); TOTAL BILIRUBIN ADULT 1.6 MG/DL (0.2-1.0); TOTAL PROTEIN 6.1 GM/DL (6.4-8.2)
[2017-09-29] MEDS: CHLORHEXIDINE 0.12% (ORAL KIT) 15 ML CUP MT SCH ×2 (08:00→20:00)
[2017-09-29] MEDS: RIFAXIMIN 550 MG TAB PO SCH ×2 (08:15→21:46)
[2017-09-29] MEDS: VITAMIN E 400 UNIT CAP PO SCH (08:15)
[2017-09-29] MEDS: PANTOPRAZOLE SODIUM 40 MG VIAL IV PUSH SCH (08:15)
[2017-09-29] MEDS: SODIUM CHLORIDE 0.9% FLUSH 10 ML FLUSH IV FLUSH SCH ×2 (08:15→21:47)
[2017-09-29] MEDS: LACTULOSE SYRUP 20 GM/30 ML CUP PO SCH ×2 (08:16→21:47)
[2017-09-29] MEDS ORDERED: POTASSIUM CHLORIDE 10 MEQ CAP PO ONE (09:00)
[2017-09-29 10:03] LABS: BANDS 13 % (0-6); BASOPHILS 1 % (0-2); LYMPHOCYTES 6 % (9-44); MONOCYTES 5 % (0-8); NEUTROPHIL # MANUAL DIFF 1.7 TH/MM3 (1.8-7.7); OVALOCYTES 1+ (NORMAL); POLYS (SEG NEUTROPHILS) 74 % (16-70)
--- NOTE | 2017-09-29 10:08 | HHI.FPPN ---
Subjective Remarks Vitals: 98.3, BP 118/77, P 63, R 13, 99% on RA Lying in bed, complains of being cold, ready to go home Patient weaned off Levophed Will d/c Bicarb drip Stable to transfer to med/surg (Vida Beal MD R1) Objective Vitals Vital Signs Date Time Temp Pulse Resp B/P (MAP) Pulse Ox O2 Delivery O2 Flow Rate FiO2 09/29/17 08:46 99 09/29/17 06:00 66 09/29/17 04:00 98.3 68 11 100/57 (71) 96 09/29/17 04:00 68 09/29/17 02:00 73 09/29/17 00:00 72 09/29/17 00:00 98.0 72 24 87/51 (63) 97 09/28/17 22:00 74 09/28/17 20:00 74 09/28/17 20:00 98.4 74 12 100/70 (80) 96 09/28/17 19:57 98 09/28/17 18:00 72 09/28/17 16:00 97.6 66 16 106/67 (80) 99 09/28/17 16:00 66 09/28/17 14:00 69 09/28/17 13:00 97.6 70 20 118/68 100 09/28/17 12:50 97.6 70 18 110/79 100 09/28/17 12:35 97.6 66 18 104/62 100 09/28/17 12:20 97.6 64 16 118/67 100 09/28/17 12:05 97.6 66 16 127/64 100 09/28/17 12:00 66 09/28/17 12:00 97.6 66 16 117/65 (82) 100 09/28/17 11:50 97.6 63 16 127/64 100 09/28/17 11:38 97.1 63 16 103/58 100 I/O 09/28/17 09/28/17 09/28/17 09/29/17 09/29/17 09/29/17 07:00 15:00 23:00 07:00 15:00 23:00 Intake Total 1940 ml 318 ml 1089 ml 1655 ml Output Total 775 ml 775 ml 550 ml Balance 1165 ml 318 ml 314 ml 1105 ml Intake Oral 600 ml 480 ml IV Total 1940 ml 200 ml 1175 ml FFP 289 ml Platelets 288 ml Blood Product IV Normal Saline Flush 30 ml Output Urine Total 575 ml 400 ml 350 ml Stool Total 200 ml 375 ml 200 ml # Bowel Movements 3 (Vida Beal MD R1) Result Diagram: 09/29/17 0608 09/29/17 0608 Objective Remarks GENERAL: lethargic, pale somewhat cachectic male with ascites SKIN: Pale, dry. HEAD: Atraumatic. Normocephalic. EYES: Pupils equal round and reactive. Extraocular motions intact. Pallor conjunctiva. No sclera icterus. ENT: Nose without bleeding, purulent drainage or septal hematoma. Throat without erythema, tonsillar hypertrophy or exudate. Uvula midline. Airway patent on admission. NECK: Trachea midline. No JVD or lymphadenopathy. Supple, nontender, no meningeal signs. CARDIOVASCULAR: Regular rate and rhythm without murmurs, gallops, or rubs. RESPIRATORY: Clear to auscultation. Breath sounds equal bilaterally. No wheezes , rales, or rhonchi. GASTROINTESTINAL: distended abdomen, ascites present, + BS. MUSCULOSKELETAL: Extremities without clubbing, cyanosis, or edema. No joint tenderness, effusion, or edema noted. NEUROLOGICAL: alert, awake, oriented x3 (Vida Beal MD R1) A/P Assessment and Plan 67-year-old male patient with history of esophageal varices, ascites, recent diagnosis of hepatocellular carcinoma, following up with Dr. Nixon, presents to the ED with hematemesis. Patient transferred to ICU on 09/26 due to significant hypotension and general high risk condition. Patient stable for transfer to med/surg floor on 09/29. Unsure how he will do with his general frail and chronically ill state. His liver failure is end stage and any problem is always worse. His renal function is poor but stable. Discharge Planning pending clinical improvement (Vida Beal MD R1) Attending Attestation Patient seen and examined. Case reviewed and discussed with the resident team. Agree with plan of care as discussed with me and documented in the resident note. he wishes to go home [place]. will transfer out of [facility] and get PT. he has had his end stage liver failure for many years and is comfortable with handling everything at home with his helping. (Lala Myers MD) Problem List: (1) Upper GI bleed ICD Codes: K92.2 - Gastrointestinal hemorrhage, unspecified Plan: 2 day hx of hematemesis, suspected upper GI bleed EGD on 09/27 showed Grade 1 esophageal varices, mild portal gastropathy, duodenal AVM, which was cauterized by Dr. Greenberg Continue Octreotide Drip 50mcg/hour and Protonix drip 8mg/hr Continue Rocephin 1,000mg IV q24h (started 09/26) for SBP ppx (2) Anemia ICD Codes: D64.9 - Anemia, unspecified Status: Acute Plan: Secondary to upper GI bleed but also was anemic prior to bleed H/H 7.0, 19.4 today, 1 unit of PRBC ordered today, H&H ordered post transfusion -Transfused 2U PRBC, 2U FFP and and 1 pk unit 09/26 -Additional 1 unit PRBC and 1 packed unit of platelets 09/27/17, 1 packed unit of platelets 09/28 (3) Thrombocytopenia ICD Codes: D69.6 - Thrombocytopenia, unspecified Status: Acute Plan: Plt 28 today continue to monitor likely from cirrhosis (4) Hypotension ICD Codes: I95.9 - Hypotension, unspecified Plan: -Stable BP, patient weaned off of Levophed -Cannot use beta-blockers for esophageal varices due to hypotension -IV Albumin 25 GM q12 (5) Cirrhosis ICD Codes: K74.60 - Unspecified cirrhosis of liver Plan: MELD score of 28 -Continue Lactulose 30ml PO qid (09/27-) -Continue Rifaximin 550mg PO bid (09/27-) GI consulted, appreciated recs -PET scan outpatient, possible biopsy per IR (6) Ascites ICD Codes: R18.8 - Other ascites Plan: s/p paracentesis 10.3 L removed on 09/27 (7) Renal failure (ARF), acute on chronic ICD Codes: N17.9 - Acute kidney failure, unspecified; N18.9 - Chronic kidney disease, unspecified Status: Chronic Plan: Monitor renal function closely. Worsening renal function most likely secondary to ATN, slowly improving -Aj catheter. Strict I's and O's -Nephrology Dr. Estrada, renal US-shows evidence of medical renal disease (8) Nutrition, metabolism, and development symptoms ICD Codes: R63.8 - Other symptoms and signs concerning food and fluid intake Plan: Diet: NPO Fluids: NS 84mls/hr vitals q4h, strict I& Os, cardiac telemetry DVT ppx: SCDs/TURNER (Vida Beal MD R1) Problem Qualifiers (1) Anemia: Qualified Codes: D64.9 - Anemia, unspecified (2) Renal failure (ARF), acute on chronic: Qualified Codes: N17.9 - Acute kidney failure, unspecified; N18.3 - Chronic kidney disease, stage 3 (moderate) Vida Beal MD R1 Sep 29, 2017 10:08 Lala Myers MD Oct 01, 2017 08:07
--- NOTE | 2017-09-29 11:01 | HHI.GIFU ---
Subjective Remarks Pt resting in bed. No GI complaints. No obvious bleeding. brown liquid stool in collection bag (Delmis Reina) Objective Vitals I&O Vital Signs Date Time Temp Pulse Resp B/P (MAP) Pulse Ox O2 Delivery O2 Flow Rate FiO2 09/29/17 08:46 99 09/29/17 06:00 66 09/29/17 04:00 98.3 68 11 100/57 (71) 96 09/29/17 04:00 68 09/29/17 02:00 73 09/29/17 00:00 72 09/29/17 00:00 98.0 72 24 87/51 (63) 97 09/28/17 22:00 74 09/28/17 20:00 74 09/28/17 20:00 98.4 74 12 100/70 (80) 96 09/28/17 19:57 98 09/28/17 18:00 72 09/28/17 16:00 97.6 66 16 106/67 (80) 99 09/28/17 16:00 66 09/28/17 14:00 69 09/28/17 13:00 97.6 70 20 118/68 100 09/28/17 12:50 97.6 70 18 110/79 100 09/28/17 12:35 97.6 66 18 104/62 100 09/28/17 12:20 97.6 64 16 118/67 100 09/28/17 12:05 97.6 66 16 127/64 100 09/28/17 12:00 66 09/28/17 12:00 97.6 66 16 117/65 (82) 100 09/28/17 11:50 97.6 63 16 127/64 100 18 11:38 97.1 63 16 103/58 100 I/O 09/28/17 09/28/17 09/28/17 09/29/17 09/29/17 09/29/17 07:00 15:00 23:00 07:00 15:00 23:00 Intake Total 1940 ml 318 ml 1089 ml 1655 ml Output Total 775 ml 775 ml 550 ml Balance 1165 ml 318 ml 314 ml 1105 ml Intake Oral 600 ml 480 ml IV Total 1940 ml 200 ml 1175 ml FFP 289 ml Platelets 288 ml Blood Product IV Normal Saline Flush 30 ml Output Urine Total 575 ml 400 ml 350 ml Stool Total 200 ml 375 ml 200 ml # Bowel Movements 3 Laboratory Laboratory Tests Test 09/29/17 06:08 White Blood Count 1.9 Red Blood Count 2.14 Hemoglobin 7.0 Hematocrit 19.4 Mean Corpuscular Volume 90.8 Mean Corpuscular Hemoglobin 32.6 Mean Corpuscular Hemoglobin Concent 35.9 Red Cell Distribution Width 20.5 Platelet Count 28 Mean Platelet Volume 7.3 Neutrophils (%) (Auto) 80.3 Lymphocytes (%) (Auto) 6.7 Monocytes (%) (Auto) 10.0 Eosinophils (%) (Auto) 2.1 Basophils (%) (Auto) 0.9 Neutrophils # (Auto) 1.5 Lymphocytes # (Auto) 0.1 Monocytes # (Auto) 0.2 Eosinophils # (Auto) 0.0 Basophils # (Auto) 0.0 CBC Comment AUTO DIFF Differential Total Cells Counted 100 Neutrophils % (Manual) 74 Band Neutrophils % 13 Lymphocytes % 6 Monocytes % 5 Eosinophils % 1 Basophils % 1 Neutrophils # (Manual) 1.7 Differential Comment FINAL DIFF MANUAL Platelet Estimate LOW Platelet Morphology Comment NORMAL Ovalocytes 1+ Prothrombin Time 15.5 Prothromb Time International Ratio 1.5 Blood Urea Nitrogen 71 Creatinine 3.31 Random Glucose 149 Total Protein 6.1 Albumin 3.2 Calcium Level 7.9 Alkaline Phosphatase 71 Aspartate Amino Transf (AST/SGOT) 16 Alanine Aminotransferase (ALT/SGPT) 18 Total Bilirubin 1.6 Sodium Level 140 Potassium Level 3.1 Chloride Level 108 Carbon Dioxide Level 22.0 Anion Gap 10 Estimat Glomerular Filtration Rate 19 Ammonia 40 Date/Time Source Procedure Growth Status 09/27/17 09:45 Fluid Peritoneal Fluid Gram Stain - Final Resulted 09/27/17 09:45 Fluid Peritoneal Fluid Body Fluid Culture - Preliminary NO GROWTH IN 48 HOURS. Resulted 09/27/17 18:30 Urine Clean Catch Urine Culture - Preliminary RESULTS PENDING Resulted Imaging Last Impressions Chest X-Ray 09/29/17 0600 Signed Impressions: Service Date/Time: Friday, September 29, 2017 03:11 - CONCLUSION: Mild improvement in the aeration of the lungs. Marisela Looney MD Renal Ultrasound 09/27/17 0000 Signed Impressions: Service Date/Time: September 11:25 - CONCLUSION: Increased renal cortical echogenicity suggesting medical renal disease. No hydronephrosis. Reid Gardner MD Physical Exam HEENT: Normocephalic; atraumatic, mild icteric sclera noted CHEST: diminished CARDIAC: RRR ABDOMEN: semifirm, distended, Soft, bowel sounds active EXTREMITIES: No clubbing, cyanosis, or edema. SKIN: Pale TACTICAL INTELLIGENCE OFFICER: alert (Delmis Reina) Assessment and Plan Plan ASSESSMENT - hematemesis - resolved , no nausea no vomiting , appetite is returning today . hx esophageal varices. EGD and banding varices 4 y ago - anemia - 7.7 on 09/28/17, received FFP and platelets today. states this is around his norm - coagulopathy - secondary to his cirrhosis - History of cirrhosis, EGD performed on 09/26/17, varices, mild portal gastropathy, AVM duodenum status post ablation. Patient tolerated procedure well 09/27/17 paracentesis , 10.3 liters taken off, patient is now extubated off ventilator to nasal cannula no acute shortness of breath noted at rest, but still has some mild to moderate bloating. 09/29/17 - pt resting in bed. drop in HGB today but no obvious bleeding. brown stool in bag. Tolerating diet. Oncology now following. peritoneal fluid cytology rare mesothelial cells, numerous erythrocytes and scattered leukocytes PLAN - full liquids - IV protonix - Lactulose - Rifaximin - monitor labs - Notify GI active bleeding - Supportive care Pt seen by myself and and this note is written on her behalf (Delmis Reina) Delmis Reina Sep 29, 2017 11:01 Christy Hummel MD Sep 29, 2017 19:47
--- NOTE | 2017-09-29 11:38 | PD.ONC.PN ---
Subjective Subjective Remarks Afebrile overnight. Patient resting in bed in nad. Objective Data Date Time Temp Pulse Resp B/P (MAP) Pulse Ox O2 Delivery O2 Flow Rate FiO2 09/29/17 08:46 99 09/29/17 06:00 66 09/29/17 04:00 98.3 68 11 100/57 (71) 96 09/29/17 04:00 68 09/29/17 02:00 73 09/29/17 00:00 72 09/29/17 00:00 98.0 72 24 87/51 (63) 97 09/28/17 22:00 74 09/28/17 20:00 74 09/28/17 20:00 98.4 74 12 100/70 (80) 96 09/28/17 19:57 98 09/28/17 18:00 72 09/28/17 16:00 97.6 66 16 106/67 (80) 99 09/28/17 16:00 66 09/28/17 14:00 69 09/28/17 13:00 97.6 70 20 118/68 100 09/28/17 12:50 97.6 70 18 110/79 100 09/28/17 12:35 97.6 66 18 104/62 100 09/28/17 12:20 97.6 64 16 118/67 100 09/28/17 12:05 97.6 66 16 127/64 100 09/28/17 12:00 66 09/28/17 12:00 97.6 66 16 117/65 (82) 100 09/28/17 11:50 97.6 63 16 127/64 100 09/28/17 11:38 97.1 63 16 103/58 100 09/29/17 09/29/17 09/29/17 07:00 15:00 23:00 Intake Total 1655 ml Output Total 550 ml Balance 1105 ml Result Diagram: 09/29/17 0608 09/29/17 0608 Laboratory Results Laboratory Tests Test 09/29/17 06:08 White Blood Count 1.9 TH/MM3 Red Blood Count 2.14 MIL/MM3 Hemoglobin 7.0 GM/DL Hematocrit 19.4 % Mean Corpuscular Volume 90.8 FL Mean Corpuscular Hemoglobin 32.6 PG Mean Corpuscular Hemoglobin Concent 35.9 % Red Cell Distribution Width 20.5 % Platelet Count 28 TH/MM3 Mean Platelet Volume 7.3 FL Neutrophils (%) (Auto) 80.3 % Lymphocytes (%) (Auto) 6.7 % Monocytes (%) (Auto) 10.0 % Eosinophils (%) (Auto) 2.1 % Basophils (%) (Auto) 0.9 % Neutrophils # (Auto) 1.5 TH/MM3 Lymphocytes # (Auto) 0.1 TH/MM3 Monocytes # (Auto) 0.2 TH/MM3 Eosinophils # (Auto) 0.0 TH/MM3 Basophils # (Auto) 0.0 TH/MM3 CBC Comment AUTO DIFF Differential Total Cells Counted 100 Neutrophils % (Manual) 74 % Band Neutrophils % 13 % Lymphocytes % 6 % Monocytes % 5 % Eosinophils % 1 % Basophils % 1 % Neutrophils # (Manual) 1.7 TH/MM3 Differential Comment FINAL DIFF MANUAL Platelet Estimate LOW Platelet Morphology Comment NORMAL Ovalocytes 1+ Prothrombin Time 15.5 SEC Prothromb Time International Ratio 1.5 RATIO Blood Urea Nitrogen 71 MG/DL Creatinine 3.31 MG/DL Random Glucose 149 MG/DL Total Protein 6.1 GM/DL Albumin 3.2 GM/DL Calcium Level 7.9 MG/DL Alkaline Phosphatase 71 U/L Aspartate Amino Transf (AST/SGOT) 16 U/L Alanine Aminotransferase (ALT/SGPT) 18 U/L Total Bilirubin 1.6 MG/DL Sodium Level 140 MEQ/L Potassium Level 3.1 MEQ/L Chloride Level 108 MEQ/L Carbon Dioxide Level 22.0 MEQ/L Anion Gap 10 MEQ/L Estimat Glomerular Filtration Rate 19 ML/MIN Ammonia 40 MCMOL/L Culture Results Microbiology Date/Time Source Procedure Growth Status 09/27/17 09:45 Fluid Peritoneal Fluid Gram Stain - Final Resulted 09/27/17 09:45 Fluid Peritoneal Fluid Body Fluid Culture - Preliminary NO GROWTH IN 48 HOURS. Resulted 09/27/17 18:30 Urine Clean Catch Urine Culture - Final NO GROWTH IN 48 HOURS. Complete Imaging Studies Last 24 hours Impressions Chest X-Ray 09/29/17 0600 Signed Impressions: Service Date/Time: Friday, September 29, 2017 03:11 - CONCLUSION: Mild improvement in the aeration of the lungs. Marisela Looney MD Administered Medications Medications (Trade) Dose Ordered Sig/Semaj Route PRN Reason Start Time Stop Time Status Last Admin Dose Admin Ergocalciferol (Drisdol) 50,000 units MoWeFr@0900 PO 09/28/17 09:00 09/28/17 11:00 Vitamin E (Vitamin E) 400 units DAILY PO 09/26/17 12:00 09/29/17 08:15 Sodium Chloride (NS Flush) 2 ml BID IV FLUSH 09/26/17 21:00 09/29/17 08:15 Ceftriaxone Sodium 1000 mg/ Sodium Chloride 100 ml @ 200 mls/hr Q24H IV 09/26/17 14:00 09/28/17 14:06 Chlorhexidine Gluconate (Peridex 0.12% Liq) 15 ml BID@08,20 MT 09/26/17 20:00 09/27/17 08:00 Albumin Human 100 ml @ 60 mls/hr Q8H IV 09/27/17 16:00 09/29/17 08:16 Rifaximin (Xifaxan) 550 mg BID PO 09/27/17 21:00 09/29/17 08:15 Objective Remarks GENERAL: Well-nourished, well-developed patient. SKIN: Warm and dry. HEAD: Normocephalic. EYES: No scleral icterus. No injection or drainage. NECK: Supple, trachea midline. No JVD or lymphadenopathy. LYMPHATIC: No adenopathy. CARDIOVASCULAR: Regular rate and rhythm without murmurs. RESPIRATORY: Breath sounds equal bilaterally. No accessory muscle use. GASTROINTESTINAL: Abdomen soft, non-tender, nondistended. EXTREMITIES: No cyanosis, or edema. MUSCULOSKELETAL: Adequate muscle tone. NEUROLOGICAL: No obvious focal deficit. Awake, alert, and oriented x3. PSYCHIATRIC: Appropriate mood and affect; insight and judgment normal. Assessment/Plan Problem List: (1) Liver mass ICD Codes: R16.0 - Hepatomegaly, not elsewhere classified Plan: --will plan for PET scan outpatient -- Liver mass, either cholangiocarcinoma, but hepatocellular carcinoma cannot be ruled out, status post TACE procedure followed by radiofrequency ablation on two separate occasions. (2) Cirrhosis ICD Codes: K74.60 - Unspecified cirrhosis of liver Assessment 67y/o male with h/o alcoholic cirrhosis admitted with GI bleed. Oncology consulted for cholangiocarcinoma. HPI (brought forward from initial consult for continuity of care): patient found to have a liver mass in 2015 when he used to live in [place]. He had a biopsy which showed cholangiocarcinoma but hepatocellular carcinoma cannot be ruled out either. The CA 19-9 was elevated but the alpha-fetoprotein was normal. He had a TACE procedure and this was followed by radiofrequency ablation twice, the last one was in January of 2017. The patient subsequently moved to [place]. He was evaluated at [facility] last June for possible liver transplant. They did the work up and found that he is not a candidate for the liver transplant as he was found to have a new tumor in the liver. The patient was seen by Dr. Hanson in [facility]. pathology report from [place] states that this is a cholangiocarcinoma; however, hepatocellular carcinoma or other malignancies cannot be ruled out. patient will need to undergo another liver biopsy to find whether he has hepatocellular carcinoma or cholangiocarcinoma as the treatment is entirely different. The patient agreed with that. He was referred to the interventional radiologist about a [id number] ago; however, the patient was hypotensive and had severe anemia. The patient had received blood transfusion but the procedure was deferred due to the severe hypotension. Patient was admitted to the hospital. 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 The patient had received multiple blood transfusions and he appears to have been stabilized. h/o Alcoholic cirrhosis. Hepatocellular carcinoma versus cholangiocarcinoma. Alcoholism. Hypertension. Diabetes mellitus. cirrhosis of the liver with esophageal varices. Plan 1. give 1 unit pRBC 2. monitor for bleeding. 3. once discharged, follow up in clinic, will obtain outpatient PET scan. Attending Statement As discussed. Kiarra Hubbard Sep 29, 2017 11:38 Anne Eisenberg MD Sep 30, 2017 23:55
[2017-09-29] MEDS ORDERED: SODIUM CHLOR 0.9% 250 ML INJ 250 ML IV ONE (11:45)
--- NOTE | 2017-09-29 11:50 | HHI.CCPN ---
Subjective Remarks/Hospital Course Patient is a 67 year old male with past medical history significant for hepatocellular carcinoma, liver cirrhosis, previous variceal bleed status post banding 4 years ago, history of nephrectomy, hypertension diabetes who presented to the ED with feeling weak and dizzy for the last 2 days and the hematemesis since yesterday evening. He has not had any episodes of hematemesis today. His hemoglobin was 6.3 with hematocrit 17.7. Initial blood pressure was 82/53. Patient received crystalloid fluid boluses. And was also ordered to receive 2 units of PRBC and 1 packed unit of platelet, platelet count 59. BUN/creat 96/4.34. Patient was also started on Protonix infusion. Patient was admitted to [facility] with consult critical care. I evaluated the patient in the emergency department, patient is borderline hypotensive and lethargic but awake alert and follows commands. 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 Last endoscopy was about 3 years ago gets ascites drained every two weeks. I have placed order for Octreotide infusion, and ordered 2 units of FFP. Discussed with Dr. Greenberg who is planning to do upper endoscopy today. Was also noted on the bedside ultrasound that the patient has significant ascites SUBJ 09/27: Patient remains intubated and sedated Levophed started overnight for worsening hypotension. Getting additional 1 unit PRBC today for hemoglobin of 7.4 with hypotension. Severe ascites need paracentesis today. EGD showed Grade 1 esophageal varices, Mild portal gastropathy, Duodenal AVM which was cauterized by Dr. Greenberg 09/28: Remains on Levophed at 4 mcg/min to maintain map above 65. Hemoglobin 7.7 but the platelet count dropped to 31, INR 1.6. Transfuse 1 packed unit of platelets and 1 FFP. BUN/creatinine remains elevated at 80/3.47 but improving. Urine output 2 L in 24 hours. Patient is status post large volume paracentesis yesterday 10.3 L removed. 09/29: Afebrile. All vasopressors discontinued. No acute events overnight. Sodium bicarbonate infusion discontinued. Protonix infusion changed to twice a day dosing. Objective Vital Signs Date Time Temp Pulse Resp B/P (MAP) Pulse Ox O2 Delivery O2 Flow Rate FiO2 09/29/17 08:46 99 09/29/17 06:00 66 09/29/17 04:00 98.3 11 100/57 (71) 09/27/17 16:00 50 09/27/17 14:32 Nasal Cannula 2.00 Intake and Output 09/29/17 09/29/17 09/30/17 08:00 16:00 00:00 Intake Total 1655 ml Output Total 550 ml Balance 1105 ml Result Diagram: 09/29/17 0608 09/29/17 0608 Other Results Microbiology Date/Time Source Procedure Growth Status 09/27/17 18:30 Urine Clean Catch Urine Culture - Final NO GROWTH IN 48 HOURS. Complete Imaging Last Impressions Chest X-Ray 09/29/17 0600 Signed Impressions: Service Date/Time: Friday, September 29, 2017 03:11 - CONCLUSION: Mild improvement in the aeration of the lungs. Marisela Looney MD Renal Ultrasound 09/27/17 0000 Signed Impressions: Service Date/Time: September 11:25 - CONCLUSION: Increased renal cortical echogenicity suggesting medical renal disease. No hydronephrosis. Reid Gardner MD Objective Remarks GENERAL: This is a well-nourished, well-developed patient, lying in bed , requesting to go home, in no apparent distress SKIN: Cool and dry. Pale HEAD: Atraumatic. Normocephalic. EYES: Pupils equal round and reactive.No scleral icterus. No injection or drainage. ENT: Oral cavity is moist NECK: Trachea midline. No JVD or lymphadenopathy. Supple, nontender CARDIOVASCULAR: Regular rate and rhythm without murmurs, gallops, or rubs. Normotensive. RESPIRATORY: Breath sounds equal bilaterally. No wheezes, rales, or rhonchi. GASTROINTESTINAL: Abdomen soft, non-tender, distended. +ve fluid thrill MUSCULOSKELETAL: Extremities without clubbing, cyanosis NEUROLOGICAL: Alert awake oriented slightly slurred speech no focal deficits A/P Assessment and Plan ASSESSMENT: Upper GIB, (EGD 09/26 showing duodenal AVM, grade 1 varices, portal gastropathy) Anemia requiring transfusion Hypotension Coagulopathy, thrombocytopenia Ascites Acute kidney failure Hepatic encephalopathy Hyperammonemia Liver cirrhosis Hepatocellular carcinoma History of alcohol dependence History of nephrectomy PLAN: NEURO: -Lactulose 30 mL 4 times daily -Repeat ammonia level a.m. , continues to improve 60-41 today RESP: -Intubated for worsening respiratory failure, extubated 09/28, now DNR -DuoNeb q6hrs PRN -Patient and family does not want reintubation CV: -On Levophed to keep MAP>65, reduce MAP target to >60 due chronic liver disease and hypertension -Sodium bicarbonate IV fluid 84 ml per hour-discontinued -Blood and blood product transfusion as below -Cannot use beta-blockers for esophageal varices due to hypotension -IV Albumin 25 GM q12 GI: -Protonix 8mg per hour gtt -On Octreotide 50 mcg/hour. DC if ok with GI -EGD 09/26-found to have grade 1 varices, portal gastropathy, duodenal AVM. Dr. Greenberg cauterized duodenal AVM -Rocephin for SBP prophylaxis -s/p Paracentesis due to large volume ascites. 10.3L removed 09/27/17 -Lactulose 30 mL 4 times daily : -Monitor renal function closely. Worsening renal function most likely secondary to ATN, slowly improving -Aj catheter. Strict I's and O's -Nephrology Dr. Estrada, renal US-shows evidence of medical renal disease ID: -Rocephin for SBP prohylaxis - F/U Blood culture, ascitic fluid studies-pending HEME: -Transfused 2U PRBC, 2U FFP and and 1 pk unit 09/26 -Additional 1 unit PRBC and 1 packed unit of platelets 09/27/17 -Transfuse 1 packed unit of platelets in 1 week to day 09/28/17 -Monitor CBC, CMP, coags, H/H q6h ENDO: -Watch for hyperkalemia PROPH: Bilateral lower extremity SCDs/TURNER. Protonix gtt. Chemical DVT prophylaxis contraindicated LINES: Utilize peripheral IVs, place central line if needed Level II follow-up Discussed with RESERVES CLERK and patient, family medicine team , Dr. Myers at bedside. Critical care medicine will sign off at this time. [facility] Physician Lizbeth Elaine MD Sep 29, 2017 11:50
[2017-09-29 12:28] LABS: CALCIUM-PROTEIN CORRECTED 8.6 MG/DL (8.5-10.1); TOTAL PROTEIN 6.1 GM/DL (6.4-8.2)
--- NOTE | 2017-09-29 12:39 | HHI.NPPN ---
Subjective General Problems: Anemia, Hypotension Renal Failure: Acute History of Present Illness 67-year-old male with a past medical history of chronic liver disease, esophageal dialysis varices with ascites, hepatic cancer, who presented to the hospital with complaint of GI bleeding with hematemesis and anemia. I was called to see the patient because of elevated BUN and creatinine. Additional Remarks Denies any SOB. Is wondering when he is being discharged. Still on low dose pressors Review of Systems General General Remarks Intubated and sedated. Respiratory Respiratory Remarks No SOB Cardiovascular Cardiac Remarks No CP Objective Data Data Vital Signs Date Time Temp Pulse Resp B/P (MAP) Pulse Ox O2 Delivery O2 Flow Rate FiO2 09/29/17 08:46 99 09/29/17 06:00 66 09/29/17 04:00 98.3 68 11 100/57 (71) 96 09/29/17 04:00 68 09/29/17 02:00 73 09/29/17 00:00 72 09/29/17 00:00 98.0 72 24 87/51 (63) 97 09/28/17 22:00 74 09/28/17 20:00 74 09/28/17 20:00 98.4 74 12 100/70 (80) 96 09/28/17 19:57 98 09/28/17 18:00 72 09/28/17 16:00 97.6 66 16 106/67 (80) 99 09/28/17 16:00 66 09/28/17 14:00 69 09/28/17 13:00 97.6 70 20 118/68 100 09/28/17 12:50 97.6 70 18 110/79 100 -: 09/29/17 0608 09/29/17 0608 Physical Exam General Appearance: Comfortable Eyes Eye Exam: Pupils Equal Throat Throat Exam: Oral Mucosa [place] & Moist Pulmonary Resp Exam: Rhonchi, Decreased Bases Cardiology CV Exam: Regular Gastrointestinal/Abdomen GI Exam: Soft, Non-Tender, Bowel Sounds Present, Distended Integumentary Skin Exam: Clear, Warm Extremeties Extremities Exam: Pitting Edema, Dependent Edema Neurologic Neuro Exam: Alert, Awake Psychiatric Psych Exam: Appropriate Responses Assessment/Plan Assessment Summary: BURAK/Acute Renal Failure, Hypotension Electrolyte Assessment: Metabolic Acidosis Problem List: (1) Renal failure (ARF), acute on chronic ICD Codes: N17.9 - Acute kidney failure, unspecified; N18.9 - Chronic kidney disease, unspecified Status: Chronic (2) Respiratory failure ICD Codes: J96.90 - Respiratory failure, unspecified, unspecified whether with hypoxia or hypercapnia (3) Anemia ICD Codes: D64.9 - Anemia, unspecified Status: Acute (4) GI bleed ICD Codes: K92.2 - Gastrointestinal hemorrhage, unspecified Status: Acute (5) Thrombocytopenia ICD Codes: D69.6 - Thrombocytopenia, unspecified Status: Acute Plan Patient has underlying hepatocellular cancer, cirrhosis of the liver, previous nephrectomy, he is nonoliguric. Responding to fluids and albumin Creatinine is slowly declining 3.3 Potassium was low and this was replaced Continue monitor BMP Discontinue Aj catheter Problem Qualifiers (1) Renal failure (ARF), acute on chronic: Qualified Codes: N17.9 - Acute kidney failure, unspecified; N18.3 - Chronic kidney disease, stage 3 (moderate) (2) Anemia: Qualified Codes: D64.9 - Anemia, unspecified Jd Sadler MD Sep 29, 2017 12:39
[2017-09-29] MEDS: cefTRIAXone INJ 1,000 MG in SODIUM CHLORIDE 0.9% INJ 100 ML IV SCH (15:15)
[2017-09-29] MEDS: PANTOPRAZOLE SOD 40 MG DELAYED RELEASE TAB PO SCH (21:46)
[2017-09-30] VITALS (11 sets, daily range): BP systolic 105–121; BP diastolic 72–87; PULSE 64–72; RESP 14–20; TEMP 97.4–98.6; O2SAT 97–100
[2017-09-30] MEDS: ALBUMIN 25% INJ 100 ML IV SCH ×2 (00:42→08:11)
[2017-09-30 02:28] LABS: HEMATOCRIT 24.3 % (39.0-51.0); HEMOGLOBIN 8.5 GM/DL (13.0-17.0); MEAN CELL VOLUME 91.1 FL (80.0-100.0); MEAN CORPUSCULAR HEMOGLOBIN 32.1 PG (27.0-34.0); MEAN CORPUSCULAR HGB CONC 35.2 % (32.0-36.0); MEAN PLATELET VOLUME 7.7 FL (7.0-11.0); PLATELET COUNT 28 TH/MM3 (150-450); RED BLOOD COUNT 2.67 MIL/MM3 (4.50-5.90); RED CELL DISTRIBUTION WIDTH 19.9 % (11.6-17.2); WHITE BLOOD COUNT 2.1 TH/MM3 (4.0-11.0)
[2017-09-30 02:43] LABS: BICARBONATE 22.3 MEQ/L (21.0-32.0); CALCIUM 8.1 MG/DL (8.5-10.1); CREATININE 3.13 MG/DL (0.60-1.30)
[2017-09-30] MEDS: CHLORHEXIDINE 0.12% (ORAL KIT) 15 ML CUP MT SCH ×2 (08:00→20:00)
[2017-09-30] MEDS: VITAMIN E 400 UNIT CAP PO SCH (09:00)
--- NOTE | 2017-09-30 09:52 | HHI.FPPN ---
Subjective Remarks Patient seen and examined this morning. No acute events overnight per nursing report. Patient's vital signs remained within normal limits since being weaned off vasopressors. Patient appears vastly improved from admission and states he would like to be discharged home [facility]. His only complaint is increasing ABD distension likely secondary to his ascites, but he does go on to say that it is not limiting his movements or causing him any pain. He continues to have nonbloody diarrhea as well which has been his baseline. He currently has no other complaints and denies any fevers, chills, SOB, chest pain or calf tenderness. (Brad Martiin MD R2) Objective Vitals Vital Signs Date Time Temp Pulse Resp B/P (MAP) Pulse Ox O2 Delivery O2 Flow Rate FiO2 09/30/17 09:18 97.9 65 18 105/80 (88) 97 09/30/17 04:00 Room Air 09/30/17 04:00 97.8 69 18 112/72 (85) 98 09/30/17 03:48 66 09/30/17 00:37 98.4 72 16 121/84 98 09/30/17 00:00 98.6 71 19 116/87 (97) 100 09/30/17 00:00 Room Air 09/29/17 23:49 71 09/29/17 22:41 99.0 70 16 104/77 100 09/29/17 22:31 98.4 70 16 107/75 100 09/29/17 20:00 Room Air 09/29/17 20:00 97.6 66 19 129/66 (87) 96 09/29/17 19:54 66 09/29/17 17:45 99 21 09/29/17 14:03 97.6 60 18 111/76 (88) 95 09/29/17 12:00 61 09/29/17 10:00 65 I/O 09/29/17 09/29/17 09/29/17 09/30/17 09/30/17 09/30/17 07:00 15:00 23:00 07:00 15:00 23:00 Intake Total 1655 ml 757 ml 640 ml Output Total 550 ml 650 ml Balance 1105 ml 757 ml -10 ml Intake Oral 480 ml 240 ml 240 ml IV Total 1175 ml 517 ml Packed Cells 400 ml Output Urine Total 350 ml 650 ml Stool Total 200 ml # Bowel Movements 3 (Brad Martini MD R2) Result Diagram: 09/30/17 02009/30/17199 Objective Remarks GENERAL: Lethargic, pale, somewhat cachectic male lying in bed in no acute distress. SKIN: Pale and dry. Appropriate capillary refill. HEENT: Atraumatic, normocephalic with EOMI. Mucous membrane is moist. No rhinorrhea. No visible LAD or JVD appreciated. CARDIOVASCULAR: Regular rate and rhythm without murmurs, gallops, or rubs. 2+ pulses in all 4 extremities. RESPIRATORY: Clear to auscultation. Breath sounds equal bilaterally. No wheezes , rales, or rhonchi. GASTROINTESTINAL: ABD soft but distended with +BS in all 4 quadrants. Positive fluid wave. No masses appreciated. MUSCULOSKELETAL: Extremities without clubbing, cyanosis, or edema. No joint tenderness, effusion, or edema noted. NEUROLOGICAL: Afocal, PPT 3. Patient able to move all 4 extremities spontaneously. (Brad Martini MD R2) A/P Assessment and Plan 67-year-old male patient with history of esophageal varices, ascites, recent diagnosis of hepatocellular carcinoma, following up with Dr. Nixon, presents to the ED with hematemesis. Patient transferred to ICU on 09/26 due to significant hypotension and general high risk condition. Patient stable for transfer to med/surg floor on 09/29. Unsure how he will do with his general frail and chronically ill state. His liver failure is end stage and any problem is always worse. His renal function is poor but stable. Discharge Planning Pending clinical improvement PT recommending home with home health PT currently (Brad Martini MD R2) Attending Attestation Patient seen and examined. Case reviewed and discussed with the resident team. Agree with plan of care as discussed with me and documented in the resident note. spoke to GI and pt will have platelets and then paracentesis tomorrow (Lala Myers MD) Problem List: (1) Upper GI bleed ICD Codes: K92.2 - Gastrointestinal hemorrhage, unspecified Plan: 2 day hx of hematemesis, suspected upper GI bleed EGD on 09/27 showed Grade 1 esophageal varices, mild portal gastropathy, duodenal AVM, which was cauterized by Dr. Greenberg Octreotide Drip 50mcg/hour discontinued Discontinue Rocephin 1,000mg IV q24h (09/26-09/30) for SBP ppx Continue Protonix 40mg PO BID (2) Anemia ICD Codes: D64.9 - Anemia, unspecified Status: Acute Plan: Secondary to upper GI bleed but also was anemic prior to bleed -H/H 8.5/24.3 on 09/30 after blood transfusion -Transfused 2 units PRBC, 3 units FFP, 3 units of platelets during hospitalization (3) Thrombocytopenia ICD Codes: D69.6 - Thrombocytopenia, unspecified Status: Acute Plan: -Thrombocytopenic to platelets of 28 -Continue to monitor -Likely secondary to cirrhosis (4) Hypotension ICD Codes: I95.9 - Hypotension, unspecified Plan: -Stable BP, patient weaned off of Levophed -Cannot use beta-blockers for esophageal varices due to hypotension -Albumin discontinued (5) Cirrhosis ICD Codes: K74.60 - Unspecified cirrhosis of liver Plan: MELD score of 28 -Continue Lactulose 30ml PO qid (09/27-) -Continue Rifaximin 550mg PO bid (09/27-) GI consulted, appreciated recs -PET scan outpatient, possible biopsy per IR (6) Ascites ICD Codes: R18.8 - Other ascites Plan: -s/p paracentesis 10.3 L removed on 09/27 -Continue to monitor (7) Renal failure (ARF), acute on chronic ICD Codes: N17.9 - Acute kidney failure, unspecified; N18.9 - Chronic kidney disease, unspecified Status: Chronic Plan: Monitor renal function closely. Worsening renal function most likely secondary to ATN, slowly improving -Aj catheter discontinued and voiding well. -Strict I's and O's -Nephrology Dr. Estrada, renal US-shows evidence of medical renal disease (8) Nutrition, metabolism, and development symptoms ICD Codes: R63.8 - Other symptoms and signs concerning food and fluid intake Plan: Diet: NPO Fluids: NS 84mls/hr vitals q4h, strict I& Os, cardiac telemetry DVT ppx: SCDs/TURNER (Brad Martini MD R2) Problem Qualifiers (1) Anemia: Qualified Codes: D64.9 - Anemia, unspecified (2) Renal failure (ARF), acute on chronic: Qualified Codes: N17.9 - Acute kidney failure, unspecified; N18.3 - Chronic kidney disease, stage 3 (moderate) Brad Martini MD R2 Sep 30, 2017 09:51 Lala Myers MD Oct 01, 2017 08:08
[2017-09-30] MEDS: LACTULOSE SYRUP 20 GM/30 ML CUP PO SCH ×2 (10:24→20:42)
[2017-09-30] MEDS: PANTOPRAZOLE SOD 40 MG DELAYED RELEASE TAB PO SCH ×2 (10:24→20:42)
[2017-09-30] MEDS: SODIUM CHLORIDE 0.9% FLUSH 10 ML FLUSH IV FLUSH SCH ×2 (10:24→20:42)
[2017-09-30] MEDS: RIFAXIMIN 550 MG TAB PO SCH ×2 (10:24→20:42)
--- NOTE | 2017-09-30 13:46 | HHI.GIFU ---
Subjective Remarks Pt resting in bed, primary at bedside. Pt eager to go home, feels he will do better if he has another paracentesis b/c he is feeling distended. (Delmis Reina) Objective Vitals I&O Vital Signs Date Time Temp Pulse Resp B/P (MAP) Pulse Ox O2 Delivery O2 Flow Rate FiO2 09/30/17 13:22 97.4 65 17 121/79 (93) 100 09/30/17 10:02 97 09/30/17 09:18 97.9 65 18 105/80 (88) 97 09/30/17 08:00 64 09/30/17 08:00 96 Room Air 2.00 21 09/30/17 04:00 Room Air 09/30/17 04:00 97.8 69 18 112/72 (85) 98 09/30/17 03:48 66 09/30/17 00:37 98.4 72 16 121/84 98 09/30/17 00:00 98.6 71 19 116/87 (97) 100 09/30/17 00:00 Room Air 09/29/17 23:49 71 09/29/17 22:41 99.0 70 16 104/77 100 09/29/17 22:31 98.4 70 16 107/75 100 09/29/17 20:00 Room Air 09/29/17 20:00 97.6 66 19 129/66 (87) 96 09/29/17 19:54 66 09/29/17 17:45 99 21 09/29/17 14:03 97.6 60 18 111/76 (88) 95 I/O 09/29/17 09/29/17 09/29/17 09/30/17 09/30/17 09/30/17 07:00 15:00 23:00 07:00 15:00 23:00 Intake Total 1655 ml 757 ml 640 ml 100 ml Output Total 550 ml 650 ml Balance 1105 ml 757 ml -10 ml 100 ml Intake Oral 480 ml 240 ml 240 ml IV Total 1175 ml 517 ml 100 ml Packed Cells 400 ml Output Urine Total 350 ml 650 ml Stool Total 200 ml # Bowel Movements 3 Laboratory Laboratory Tests Test 09/30/17 02:00 White Blood Count 2.1 Red Blood Count 2.67 Hemoglobin 8.5 Hematocrit 24.3 Mean Corpuscular Volume 91.1 Mean Corpuscular Hemoglobin 32.1 Mean Corpuscular Hemoglobin Concent 35.2 Red Cell Distribution Width 19.9 Platelet Count 28 Mean Platelet Volume 7.7 Blood Urea Nitrogen 66 Creatinine 3.13 Random Glucose 105 Calcium Level 8.1 Sodium Level 140 Potassium Level 3.7 Chloride Level 109 Carbon Dioxide Level 22.3 Anion Gap 9 Estimat Glomerular Filtration Rate 20 Ammonia 65 Date/Time Source Procedure Growth Status 09/27/17 09:45 Fluid Peritoneal Fluid Gram Stain - Final Complete 09/27/17 09:45 Fluid Peritoneal Fluid Body Fluid Culture - Final NO GROWTH IN 72 HRS.--AEROBICALLY OR ... Complete 09/27/17 18:30 Urine Clean Catch Urine Culture - Final NO GROWTH IN 48 HOURS. Complete Imaging Last Impressions Chest X-Ray 09/29/17 0600 Signed Impressions: Service Date/Time: Friday, September 29, 2017 03:11 - CONCLUSION: Mild improvement in the aeration of the lungs. K. Nick Looney MD Renal Ultrasound 09/27/17 0000 Signed Impressions: Service Date/Time: September 11:25 - CONCLUSION: Increased renal cortical echogenicity suggesting medical renal disease. No hydronephrosis. Reid Gardner MD Physical Exam HEENT: Normocephalic; atraumatic, mild icteric sclera noted CHEST: diminished CARDIAC: RRR ABDOMEN: semifirm, taut, distended, bowel sounds active EXTREMITIES: No clubbing, cyanosis, or edema. SKIN: Pale UPHOLSTERY TRIMMER: alert (Delmis Reina [employer]) Assessment and Plan Plan ASSESSMENT - hematemesis - resolved , no nausea no vomiting , appetite is returning today . hx esophageal varices. EGD and banding varices 4 y ago - anemia - 7.7 on 09/28/17, received FFP and platelets today. states this is around his norm - coagulopathy - secondary to his cirrhosis - History of cirrhosis, EGD performed on 09/26/17, varices, mild portal gastropathy, AVM duodenum status post ablation. Patient tolerated procedure well 09/27/17 paracentesis , 10.3 liters taken off, patient is now extubated off ventilator to nasal cannula no acute shortness of breath noted at rest, but still has some mild to moderate bloating. 09/29/17 - pt resting in bed. drop in HGB today but no obvious bleeding. brown stool in bag. Tolerating diet. Oncology now following. peritoneal fluid cytology rare mesothelial cells, numerous erythrocytes and scattered leukocytes 09/30/17 pt resting in bed, eager to go home. d/w primary. pt c/o abd distention, is somewhat tense. PLT dropping, requiring tranfusions PLT periodically PLAN - MINERVA, low sodium - paracentesis tomorrow - peritoneal fluid for cytology - 1 x PLT prior to paracentesis - IV protonix - Lactulose - Rifaximin - monitor labs - Notify GI active bleeding - f/u with oncology - Supportive care - if stable tomorrow after paracentesis ok to d/c home from GI standpoint with home health Pt seen by myself and and this note is written on her behalf (Delmis Reina) Physician Comments seen, examined agree with above (Christy Hummel MD) Delmis Reina Sep 30, 2017 13:46 Christy Hummel MD Sep 30, 2017 18:23
--- NOTE | 2017-09-30 16:20 | HHI.NPPN ---
Subjective General Problems: Anemia, Hypotension Renal Failure: Acute History of Present Illness 67-year-old male with a past medical history of chronic liver disease, esophageal dialysis varices with ascites, hepatic cancer, who presented to the hospital with complaint of GI bleeding with hematemesis and anemia. I was called to see the patient because of elevated BUN and creatinine. Additional Remarks Denies any SOB. Is wondering when he is being discharged. Still on low dose pressors Review of Systems General General Remarks Intubated and sedated. Respiratory Respiratory Remarks No SOB Cardiovascular Cardiac Remarks No CP Objective Data Data 09/30/17 10/01/17 19:00 07:00 Intake Total 100 ml Balance 100 ml IV Total 100 ml Vital Signs Date Time Temp Pulse Resp B/P (MAP) Pulse Ox O2 Delivery O2 Flow Rate FiO2 09/30/17 13:22 97.4 65 17 121/79 (93) 100 09/30/17 10:02 97 09/30/17 09:18 97.9 65 18 105/80 (88) 97 09/30/17 08:00 64 09/30/17 08:00 96 Room Air 2.00 21 09/30/17 04:00 Room Air 09/30/17 04:00 97.8 69 18 112/72 (85) 98 09/30/17 03:48 66 09/30/17 00:37 98.4 72 16 121/84 98 09/30/17 00:00 98.6 71 19 116/87 (97) 100 09/30/17 00:00 Room Air 09/29/17 23:49 71 09/29/17 22:41 99.0 70 16 104/77 100 09/29/17 22:31 98.4 70 16 107/75 100 09/29/17 20:00 Room Air 09/29/17 20:00 97.6 66 19 129/66 (87) 96 09/29/17 19:54 66 09/29/17 17:45 99 21 -: 09/30/17 0200 09/30/17 0200 Physical Exam General Appearance: Comfortable Eyes Eye Exam: Pupils Equal Throat Throat Exam: Oral Mucosa [place] Place & Moist Pulmonary Resp Exam: Rhonchi, Decreased Bases Cardiology CV Exam: Regular Gastrointestinal/Abdomen GI Exam: Soft, Non-Tender, Bowel Sounds Present, Distended Integumentary Skin Exam: Clear, Warm Extremeties Extremities Exam: Pitting Edema, Dependent Edema Neurologic Neuro Exam: Alert, Awake Psychiatric Psych Exam: Appropriate Responses Assessment/Plan Assessment Summary: BURAK/Acute Renal Failure, Hypotension Electrolyte Assessment: Metabolic Acidosis Problem List: (1) Renal failure (ARF), acute on chronic ICD Codes: N17.9 - Acute kidney failure, unspecified; N18.9 - Chronic kidney disease, unspecified Status: Chronic (2) Respiratory failure ICD Codes: J96.90 - Respiratory failure, unspecified, unspecified whether with hypoxia or hypercapnia (3) Anemia ICD Codes: D64.9 - Anemia, unspecified Status: Acute (4) GI bleed ICD Codes: K92.2 - Gastrointestinal hemorrhage, unspecified Status: Acute (5) Thrombocytopenia ICD Codes: D69.6 - Thrombocytopenia, unspecified Status: Acute Plan Patient has underlying hepatocellular cancer, cirrhosis of the liver, previous nephrectomy, he is nonoliguric. Responding to fluids and albumin Creatinine is slowly declining 3.13 Potassium 3[address] Estrada to follow Problem Qualifiers (1) Renal failure (ARF), acute on chronic: Qualified Codes: N17.9 - Acute kidney failure, unspecified; N18.3 - Chronic kidney disease, stage 3 (moderate) (2) Anemia: Qualified Codes: D64.9 - Anemia, unspecified Jd Sadler MD Sep 30, 2017 16:20
[2017-09-30] MEDS ORDERED: ALBUMIN 25% INJ 50 ML IV ONE (18:00)
[2017-10-01] VITALS (9 sets, daily range): BP systolic 94–159; BP diastolic 52–86; PULSE 69–78; RESP 18–20; TEMP 97.8–98.4; O2SAT 95–100
[2017-10-01] MEDS: CHLORHEXIDINE 0.12% (ORAL KIT) 15 ML CUP MT SCH (08:00)
[2017-10-01] MEDS: LACTULOSE SYRUP 20 GM/30 ML CUP PO SCH ×2 (09:00→10:16)
[2017-10-01] MEDS ORDERED: SODIUM CHLORID 0.9% 500 ML INJ 250 ML IV SCH (09:30)
[2017-10-01] MEDS: PANTOPRAZOLE SOD 40 MG DELAYED RELEASE TAB PO SCH (10:16)
[2017-10-01] MEDS: VITAMIN E 400 UNIT CAP PO SCH (10:16)
[2017-10-01] MEDS: RIFAXIMIN 550 MG TAB PO SCH (10:16)
[2017-10-01] MEDS: SODIUM CHLORIDE 0.9% FLUSH 10 ML FLUSH IV FLUSH SCH (10:17)
[2017-10-01 10:24] LABS: AUTOMATED NEUTROPHIL # 1.7 TH/MM3 (1.8-7.7); BASOPHIL % 0.8 % (0.0-2.0); EOSINOPHIL % 2.3 % (0.0-4.0); HEMATOCRIT 26.1 % (39.0-51.0); HEMOGLOBIN 9.2 GM/DL (13.0-17.0); LYMPH % 6.9 % (9.0-44.0); LYMPHOCYTE # 0.2 TH/MM3 (1.0-4.8); MEAN CELL VOLUME 91.8 FL (80.0-100.0); MEAN CORPUSCULAR HEMOGLOBIN 32.5 PG (27.0-34.0); MEAN CORPUSCULAR HGB CONC 35.4 % (32.0-36.0); MEAN PLATELET VOLUME 7.2 FL (7.0-11.0); MONO % 12.8 % (0.0-8.0); MONOCYTE # 0.3 TH/MM3 (0-0.9); NEUT % 77.2 % (16.0-70.0); PLATELET COUNT 23 TH/MM3 (150-450); RED BLOOD COUNT 2.84 MIL/MM3 (4.50-5.90); RED CELL DISTRIBUTION WIDTH 19.6 % (11.6-17.2); WHITE BLOOD COUNT 2.2 TH/MM3 (4.0-11.0)
--- NOTE | 2017-10-01 10:27 | HHI.NPPN ---
Subjective General Problems: Anemia, Hypotension Renal Failure: Acute History of Present Illness 67-year-old male with a past medical history of chronic liver disease, esophageal dialysis varices with ascites, hepatic cancer, who presented to the hospital with complaint of GI bleeding with hematemesis and anemia. I was called to see the patient because of elevated BUN and creatinine. Additional Remarks Denies any SOB. No edema. Paracentesis planned for today. (Yuli Lim) Review of Systems General General Remarks Intubated and sedated. (Yuli Lim) Respiratory Respiratory Remarks No SOB (Yuli Lim) Cardiovascular Cardiac Remarks No CP (Yuli Lim) Objective Data Data Vital Signs Date Time Temp Pulse Resp B/P (MAP) Pulse Ox O2 Delivery O2 Flow Rate FiO2 10/01/17 09:41 159/72 (101) 10/01/17 08:00 98.4 76 20 107/67 (80) 99 10/01/17 04:00 Room Air 10/01/17 04:00 98.4 74 18 94/52 (66) 95 10/01/17 03:53 71 10/01/17 00:01 71 10/01/17 00:00 98.4 73 19 114/82 (93) 98 10/01/17 00:00 Room Air 09/30/17 20:00 Room Air 09/30/17 20:00 97.8 68 14 113/76 (88) 99 09/30/17 19:59 71 09/30/17 17:33 97.6 66 20 111/84 (93) 100 09/30/17 13:22 97.4 65 17 121/79 (93) 100 (Yuli Lim) -: 09/30/17 0200 09/30/17 0200 Physical Exam General Appearance: Comfortable (Yuli Lim) Eyes Eye Exam: Pupils Equal (Yuli Lim) Throat Throat Exam: Oral Mucosa [place] & Moist (Yuli Lim) Pulmonary Resp Exam: Rhonchi, Decreased Bases (Yuli Lim) Cardiology CV Exam: Regular (Yuli Lim) Gastrointestinal/Abdomen GI Exam: Non-Tender, Bowel Sounds Present, Distended (Yuli Lim) Integumentary Skin Exam: Clear, Warm (Yuli Lim) Extremeties Extremities Exam: Pitting Edema, Dependent Edema (Yuli Lim) Neurologic Neuro Exam: Alert, Awake (Yuli Lim) Psychiatric Psych Exam: Appropriate Responses (Yuli Lim) Assessment/Plan Assessment Summary: BURAK/Acute Renal Failure, Hypotension Electrolyte Assessment: Metabolic Acidosis Problem List: (1) Renal failure (ARF), acute on chronic ICD Codes: N17.9 - Acute kidney failure, unspecified; N18.9 - Chronic kidney disease, unspecified Status: Chronic (2) Respiratory failure ICD Codes: J96.90 - Respiratory failure, unspecified, unspecified whether with hypoxia or hypercapnia (3) Anemia ICD Codes: D64.9 - Anemia, unspecified Status: Acute (4) GI bleed ICD Codes: K92.2 - Gastrointestinal hemorrhage, unspecified Status: Acute (5) Thrombocytopenia ICD Codes: D69.6 - Thrombocytopenia, unspecified Status: Acute Plan Patient has underlying hepatocellular cancer, cirrhosis of the liver, previous nephrectomy, he is nonoliguric. Creatinine is slowly improving Continues to have good UOP Labs pending today Paracentesis planned today after PLT infusion continue monitor labs and UOP (Yuli Lim) Plan Patient seen and examined, agree with above. For D/C, to follow at [facility] with his Host/Hostess Head. (Reanna Estrada MD) Problem Qualifiers (1) Renal failure (ARF), acute on chronic: Qualified Codes: N17.9 - Acute kidney failure, unspecified; N18.3 - Chronic kidney disease, stage 3 (moderate) (2) Anemia: Qualified Codes: D64.9 - Anemia, unspecified Yuli Lim Oct 01, 2017 10:27 Reanna Estrada MD Oct 01, 2017 20:55
[2017-10-01 10:48] LABS: ALBUMIN 3.6 GM/DL (3.4-5.0); AST (GOT) 17 U/L (15-37); BICARBONATE 21.5 MEQ/L (21.0-32.0); BLOOD UREA NITROGEN 60 MG/DL (7-18); CALCIUM 8.6 MG/DL (8.5-10.1); CHLORIDE 108 MEQ/L (98-107); CREATININE 3.07 MG/DL (0.60-1.30); GLOMERULAR FILTRATION RATE 20 ML/MIN (>89); GLUCOSE,RANDOM 98 MG/DL (74-106); SODIUM (NA) 140 MEQ/L (136-145)
[2017-10-01 10:53] LABS: ALKALINE PHOSPHATASE 71 U/L (45-117); ALT (GPT) 15 U/L (12-78); TOTAL BILIRUBIN ADULT 1.8 MG/DL (0.2-1.0); TOTAL PROTEIN 6.6 GM/DL (6.4-8.2)
[2017-10-01 10:56] LABS: OVALOCYTES 1+ (NORMAL)
--- NOTE | 2017-10-01 11:49 | HHI.FPPN ---
Subjective Remarks Mr Faulkner had no acute events overnight. He is anxious to discharge today if that is possible. We are awaiting transfusion of 1u PLTs, then paracentesis this afternoon, followed by PT rebecca. If all goes well, he may discharge. He is having no pain but wants the paracentesis. He has no trouble sitting up on the side of the bed and standing and walking to the bedside commode. Denies dizziness, CP, SOB, N/V/D, and DVT leg pain. (Maxi Grier MD R1) Objective Vitals Vital Signs Date Time Temp Pulse Resp B/P (MAP) Pulse Ox O2 Delivery O2 Flow Rate FiO2 10/01/17 11:05 97.8 73 18 107/86 100 10/01/17 10:47 98.4 76 20 98/78 99 10/01/17 09:41 159/72 (101) 10/01/17 08:00 98.4 76 20 107/67 (80) 99 10/01/17 07:00 Room Air 10/01/17 04:00 Room Air 10/01/17 04:00 98.4 74 18 94/52 (66) 95 10/01/17 03:53 71 10/01/17 00:01 71 10/01/17 00:00 98.4 73 19 114/82 (93) 98 10/01/17 00:00 Room Air 09/30/17 20:00 Room Air 09/30/17 20:00 97.8 68 14 113/76 (88) 99 09/30/17 19:59 71 09/30/17 17:33 97.6 66 20 111/84 (93) 100 09/30/17 13:22 97.4 65 17 121/79 (93) 100 I/O 09/30/17 09/30/17 09/30/17 10/01/17 10/01/17 10/01/17 07:00 15:00 23:00 07:00 15:00 23:00 Intake Total 670 ml 100 ml 50 ml 400 ml 10 ml Output Total 650 ml 300 ml 650 ml Balance 20 ml 100 ml -250 ml -250 ml 10 ml Intake Oral 240 ml 400 ml IV Total 30 ml 100 ml 50 ml Packed Cells 400 ml Blood Product IV Normal Saline Flush 10 ml Output Urine Total 650 ml 300 ml 650 ml # Bowel Movements 3 1 (Maxi Grier MD R1) Result Diagram: 10/01/17 0935 10/01/17 09 Objective Remarks GENERAL: Alert, pale, somewhat cachectic male with distended abdomen lying in bed in no acute distress. SKIN: Pale and dry. Appropriate capillary refill. HEENT: Atraumatic, normocephalic with EOMI. Mucous membrane is moist. No rhinorrhea. No visible LAD or JVD appreciated. CARDIOVASCULAR: Regular rate and rhythm without murmurs, gallops, or rubs. 2+ pulses in all 4 extremities. RESPIRATORY: Clear to auscultation. Breath sounds equal bilaterally. No wheezes , rales, or rhonchi. GASTROINTESTINAL: ABD soft but distended with +BS. Ascites. No guarding or rebound. No masses appreciated. MUSCULOSKELETAL: Extremities without clubbing, cyanosis, or edema. No joint tenderness, effusion, or edema noted. NEUROLOGICAL: Afocal, AOx3. Patient able to move all 4 extremities spontaneously. CN II-XII grossly intact. Normal speech. Medications and IVs Current Medications Medications (Trade) Dose Ordered Sig/Semaj Route Start Time Stop Time Status Last Admin (Vitamin E) 400 units DAILY PO 09/26/17 12:00 10/01/17 10:16 (NS Flush) 2 ml UNSCH PRN IV FLUSH 09/26/17 10:00 (NS Flush) 2 ml BID IV FLUSH 09/26/17 21:00 10/01/17 10:17 (Zofran Inj) 4 mg Q6H PRN IV PUSH 09/26/17 10:00 (Tylenol) 650 mg Q4H PRN PO 09/26/17 10:00 (Brethine Inj) 1 mg UNSCH PRN SQ 09/26/17 16:15 (Peridex 0.12% Liq) 15 ml BID@08,20 MT 09/26/17 20:00 09/27/17 08:00 (Xifaxan) 550 mg BID PO 09/27/17 21:00 10/01/17 10:16 (Melatonin) 5 mg HS PRN PO 09/29/17 02:30 (Lactulose Liq) 30 ml BID PO 09/29/17 21:00 09/30/17 20:42 (Protonix) 40 mg Q12HR PO 09/29/17 21:00 2/19/18 10:16 (Drevitaol) 50,000 units Fr PO 10/05/17 08:30 Sodium Chloride 250 ml @ 50 mls/hr Q5H IV 10/01/17 09:30 10/01/17 14:29 (Maxi Grier MD R1) Vascular Central Line Catheter: No (Maxi Grier MD R1) A/P Assessment and Plan 67-year-old male patient with history of esophageal varices, ascites, recent diagnosis of hepatocellular carcinoma, following up with Dr. Nixon, presents to the ED with hematemesis. Patient transferred to ICU on 09/26 due to significant hypotension and general high risk condition. Patient transfered to med/surg floor on 09/29 and has been stable. Unsure how he will do with his general frail and chronically ill state. His liver failure is end stage and any problem is always worse. His renal function is poor but stable. Plan is for transfusion of 1u PLTs today followed by paracentesis, then re-eval by PT for safety. If all goes well, he will discharge this afternoon so that he may be evaluated by Heme/Onc as outpt for PET scan. Discharge Planning Pending clinical improvement PT recommending home with home health PT currently (Maxi Grier MD R1) Attending Attestation Patient seen and examined. Case reviewed and discussed with the resident team. Agree with plan of care as discussed with me and documented in the resident note. Mr Faulkner was able to easily sit up on the side of the bed and stand without assistance. he very much wants to go home today after paracentesis (Lala Myers MD) Problem List: (1) Upper GI bleed ICD Codes: K92.2 - Gastrointestinal hemorrhage, unspecified Plan: 2 day hx of hematemesis, suspected upper GI bleed EGD on 09/27 showed Grade 1 esophageal varices, mild portal gastropathy, duodenal AVM, which was cauterized by Dr. Greenberg -CBC w/ Plts 23 today -- transfusing 1u PLTs today; H/H stable w/Hgb 9.2 and Hct 26.1 Octreotide Drip 50mcg/hour discontinued Discontinue Rocephin 1,000mg IV q24h (09/26-09/30) for SBP ppx Continue Protonix 40mg PO BID (2) Anemia ICD Codes: D64.9 - Anemia, unspecified Status: Acute Plan: Secondary to upper GI bleed but also was anemic prior to bleed -H/H as above--stable -Transfused 2 units PRBC, 3 units FFP, 3 units of platelets during hospitalization -Transfusing 1u PLTs today as above (3) Thrombocytopenia ICD Codes: D69.6 - Thrombocytopenia, unspecified Status: Acute Plan: -Thrombocytopenic--Plts 58 on admit and 23 today following GI bleeding; as above will transfuse 1u PLTs today -Continue to monitor -Likely secondary to cirrhosis (4) Hypotension ICD Codes: I95.9 - Hypotension, unspecified Plan: -Stable BP, patient weaned off of Levophed -Cannot use beta-blockers for esophageal varices due to hypotension -Albumin discontinued (5) Cirrhosis ICD Codes: K74.60 - Unspecified cirrhosis of liver Plan: MELD score of 28 -Continue Lactulose 30ml PO qid (09/27-) -Continue Rifaximin 550mg PO bid (09/27-) GI consulted, appreciated recs -PET scan outpatient, possible biopsy per IR (6) Ascites ICD Codes: R18.8 - Other ascites Plan: -s/p paracentesis 10.3 L removed on 09/27; will get paracentesis this afternoon -Continue to monitor (7) Renal failure (ARF), acute on chronic ICD Codes: N17.9 - Acute kidney failure, unspecified; N18.9 - Chronic kidney disease, unspecified Status: Chronic Plan: Monitor renal function closely. Worsening renal function most likely secondary to ATN, slowly improving; Cr 3.07 today, improving slowly -Aj catheter discontinued and voiding well. -Strict I's and O's -Nephrology Dr. Estrada, renal US-shows evidence of medical renal disease (8) Nutrition, metabolism, and development symptoms ICD Codes: R63.8 - Other symptoms and signs concerning food and fluid intake Plan: Diet: Regular diet Fluids: PO fluids strict I& Os, cardiac telemetry DVT ppx: SCDs/TURNER Protonix as above PT OOB w/assist--will evaluate this afternoon for discharge (Maxi Grier MD R1) Problem Qualifiers (1) Anemia: Qualified Codes: D64.9 - Anemia, unspecified (2) Renal failure (ARF), acute on chronic: Qualified Codes: N17.9 - Acute kidney failure, unspecified; N18.3 - Chronic kidney disease, stage 3 (moderate) Maxi Grier MD R1 Oct 01, 2017 11:49 Lala Myers MD Oct 01, 2017 12:21
--- NOTE | 2017-10-01 11:50 | HHI.GIFU ---
Subjective Remarks Pt in bed, receiving PLT and waiting for paracentesis. Eager to go home. (Delmis Reina) Objective Vitals I&O Vital Signs Date Time Temp Pulse Resp B/P (MAP) Pulse Ox O2 Delivery O2 Flow Rate FiO2 10/01/17 11:05 97.8 73 18 107/86 100 10/01/17 10:47 98.4 76 20 98/78 99 10/01/17 09:41 159/72 (101) 10/01/17 08:00 98.4 76 20 107/67 (80) 99 10/01/17 07:00 Room Air 10/01/17 04:00 Room Air 10/01/17 04:00 98.4 74 18 94/52 (66) 95 10/01/17 03:53 71 10/01/17 00:01 71 10/01/17 00:00 98.4 73 19 114/82 (93) 98 10/01/17 00:00 Room Air 09/30/17 20:00 Room Air 09/30/17 20:00 97.8 68 14 113/76 (88) 99 09/30/17 19:59 71 09/30/17 17:33 97.6 66 20 111/84 (93) 100 09/30/17 13:22 97.4 65 17 121/79 (93) 100 I/O 09/30/17 09/30/17 09/30/17 10/01/17 10/01/17 10/01/17 07:00 15:00 23:00 07:00 15:00 23:00 Intake Total 670 ml 100 ml 50 ml 400 ml 10 ml Output Total 650 ml 300 ml 650 ml Balance 20 ml 100 ml -250 ml -250 ml 10 ml Intake Oral 240 ml 400 ml IV Total 30 ml 100 ml 50 ml Packed Cells 400 ml Blood Product IV Normal Saline Flush 10 ml Output Urine Total 650 ml 300 ml 650 ml # Bowel Movements 3 1 Laboratory Laboratory Tests Test 10/01/17 09:35 White Blood Count 2.2 Red Blood Count 2.84 Hemoglobin 9.2 Hematocrit 26.1 Mean Corpuscular Volume 91.8 Mean Corpuscular Hemoglobin 32.5 Mean Corpuscular Hemoglobin Concent 35.4 Red Cell Distribution Width 19.6 Platelet Count 23 Mean Platelet Volume 7.2 Neutrophils (%) (Auto) 77.2 Lymphocytes (%) (Auto) 6.9 Monocytes (%) (Auto) 12.8 Eosinophils (%) (Auto) 2.3 Basophils (%) (Auto) 0.8 Neutrophils # (Auto) 1.7 Lymphocytes # (Auto) 0.2 Monocytes # (Auto) 0.3 Eosinophils # (Auto) 0.0 Basophils # (Auto) 0.0 CBC Comment AUTO DIFF Differential Comment AUTO DIFF CONFIRMED Platelet Estimate LOW Platelet Morphology Comment NORMAL Ovalocytes 1+ Blood Urea Nitrogen 60 Creatinine 3.07 Random Glucose 98 Total Protein 6.6 Albumin 3.6 Calcium Level 8.6 Alkaline Phosphatase 71 Aspartate Amino Transf (AST/SGOT) 17 Alanine Aminotransferase (ALT/SGPT) 15 Total Bilirubin 1.8 Sodium Level 140 Potassium Level 3.6 Chloride Level 108 Carbon Dioxide Level 21.5 Anion Gap 11 Estimat Glomerular Filtration Rate 20 Ammonia 42 Date/Time Source Procedure Growth Status 09/27/17 09:45 Fluid Peritoneal Fluid Gram Stain - Final Complete 09/27/17 09:45 Fluid Peritoneal Fluid Body Fluid Culture - Final NO GROWTH IN 72 HRS.--AEROBICALLY OR ... Complete 09/27/17 18:30 Urine Clean Catch Urine Culture - Final NO GROWTH IN 48 HOURS. Complete Imaging Last Impressions Chest X-Ray 09/29/17 0600 Signed Impressions: Service Date/Time: Friday, September 29, 2017 03:11 - CONCLUSION: Mild improvement in the aeration of the lungs. Marisela Looney MD Renal Ultrasound 09/27/17 0000 Signed Impressions: Service Date/Time: September 11:25 - CONCLUSION: Increased renal cortical echogenicity suggesting medical renal disease. No hydronephrosis. Reid Gardner MD Physical Exam HEENT: Normocephalic; atraumatic, mild icteric sclera noted CHEST: diminished CARDIAC: RRR ABDOMEN: semifirm, taut, distended, bowel sounds active EXTREMITIES: No clubbing, cyanosis, or edema. SKIN: Pale SILVERWARE ETCHER: alert (Delmis Reina ROOM ATTENDANT) Assessment and Plan Plan ASSESSMENT - hematemesis - resolved , no nausea no vomiting , appetite is returning today . hx esophageal varices. EGD and banding varices 4 y ago - anemia - 7.7 on 09/28/17, received FFP and platelets today. states this is around his norm - coagulopathy - secondary to his cirrhosis - History of cirrhosis, EGD performed on 09/26/17, varices, mild portal gastropathy, AVM duodenum status post ablation. Patient tolerated procedure well 09/27/17 paracentesis , 10.3 liters taken off, patient is now extubated off ventilator to nasal cannula no acute shortness of breath noted at rest, but still has some mild to moderate bloating. 09/29/17 - pt resting in bed. drop in HGB today but no obvious bleeding. brown stool in bag. Tolerating diet. Oncology now following. peritoneal fluid cytology rare mesothelial cells, numerous erythrocytes and scattered leukocytes 09/30/17 pt resting in bed, eager to go home. d/w primary. pt c/o abd distention, is somewhat tense. PLT dropping, requiring tranfusions PLT periodically 10/01/17 awaiting paracentesis, platelets transfusing. will rck. distended. eager to go home. PLAN - check PLT count after infusion - paracentesis tomorrow - peritoneal fluid for cytology - MINERVA, low sodium - IV protonix - Lactulose - Rifaximin - monitor labs - Notify GI active bleeding - f/u with oncology - Supportive care - if stable after paracentesis ok to d/c home from GI standpoint Pt seen by myself and and this note is written on his behalf (Delmis Reina) Physician Comments Seen and examined with ROOM ATTENDANT, paracentesis today then hoping to go home. No Etoh. Gi fu upon dc. Thank you (Alicia Nolan MD) Delmis Reina Oct 01, 2017 11:50 Alicia Nolan MD Oct 01, 2017 17:46
--- NOTE | 2017-10-01 15:17 | HHI.FF ---
Face to Face Verification Diagnosis: (1) Upper GI bleed (2) Renal failure (ARF), acute on chronic (3) Ascites (4) Liver mass (5) Cirrhosis (6) Thrombocytopenia (7) Nutrition, metabolism, and development symptoms Physical Therapy Order: Evaluate and Treat, Improve ambulation, Strength and gait training Home Health Nursing Order: Medical education Signs/symptoms of disease process Nursing assessment with vital signs Editor Greeting Card Order: To Provide: Long range planning I have seen patient Billy Faulkner on 10/01/17. My clinical findings support the need for the requested home health care services because: pt is end stage liver failure with cirrhosis and spent time in the ICU in the hospital. He is weak and Physical Therapy has requested Home Health PT services because he is deconditioned and frail. Additionally, he has a liver mass that has yet to be staged that is suspicious for cancer. Ltd mobility - disease progression Deconditioned w/ increased weakness Limited ability to care for self High risk of falls I certify that my clinical findings support that this patient is homebound because: pt has end stage liver disease with a yet to be staged liver mass suspicious for cancer. His MELD score is 28. Unsteady gait/balance Maxi Grier MD R1 Oct 01, 2017 15:17
[2017-10-01] MEDS ORDERED: Lactulose Liq PO (15:22)
[2017-10-01] MEDS ORDERED: XIFA550T4 PO (15:22)
--- NOTE | 2017-10-01 15:32 | PD.ONC.PN ---
Subjective Subjective Remarks Afebrile Pt anxiously awaiting to go downstairs for paracentesis. Planning to go home today "one way or another" Objective Data Date Time Temp Pulse Resp B/P (MAP) Pulse Ox O2 Delivery O2 Flow Rate FiO2 10/01/17 11:05 97.8 73 18 107/86 100 10/01/17 10:47 98.4 76 20 98/78 99 10/01/17 09:41 159/72 (101) 10/01/17 08:00 98.4 76 20 107/67 (80) 99 10/01/17 07:00 Room Air 10/01/17 04:00 Room Air 10/01/17 04:00 98.4 74 18 94/52 (66) 95 10/01/17 03:53 71 10/01/17 00:01 71 10/01/17 00:00 98.4 73 19 114/82 (93) 98 10/01/17 00:00 Room Air 09/30/17 20:00 Room Air 09/30/17 20:00 97.8 68 14 113/76 (88) 99 09/30/17 19:59 71 09/30/17 17:33 97.6 66 20 111/84 (93) 100 10/01/17 10/01/17 10/01/17 07:00 15:00 23:00 Intake Total 400 ml 304 ml Output Total 650 ml Balance -250 ml 304 ml Result Diagram: 10/01/1735 10/01/17 0935 Laboratory Results Laboratory Tests Test 10/01/17 09:35 White Blood Count 2.2 TH/MM3 Red Blood Count 2.84 MIL/MM3 Hemoglobin 9.2 GM/DL Hematocrit 26.1 % Mean Corpuscular Volume 91.8 FL Mean Corpuscular Hemoglobin 32.5 PG Mean Corpuscular Hemoglobin Concent 35.4 % Red Cell Distribution Width 19.6 % Platelet Count 23 TH/MM3 Mean Platelet Volume 7.2 FL Neutrophils (%) (Auto) 77.2 % Lymphocytes (%) (Auto) 6.9 % Monocytes (%) (Auto) 12.8 % Eosinophils (%) (Auto) 2.3 % Basophils (%) (Auto) 0.8 % Neutrophils # (Auto) 1.7 TH/MM3 Lymphocytes # (Auto) 0.2 TH/MM3 Monocytes # (Auto) 0.3 TH/MM3 Eosinophils # (Auto) 0.0 TH/MM3 Basophils # (Auto) 0.0 TH/MM3 CBC Comment AUTO DIFF Differential Comment AUTO DIFF CONFIRMED Platelet Estimate LOW Platelet Morphology Comment NORMAL Ovalocytes 1+ Blood Urea Nitrogen 60 MG/DL Creatinine 3.07 MG/DL Random Glucose 98 MG/DL Total Protein 6.6 GM/DL Albumin 3.6 GM/DL Calcium Level 8.6 MG/DL Alkaline Phosphatase 71 U/L Aspartate Amino Transf (AST/SGOT) 17 U/L Alanine Aminotransferase (ALT/SGPT) 15 U/L Total Bilirubin 1.8 MG/DL Sodium Level 140 MEQ/L Potassium Level 3.6 MEQ/L Chloride Level 108 MEQ/L Carbon Dioxide Level 21.5 MEQ/L Anion Gap 11 MEQ/L Estimat Glomerular Filtration Rate 20 ML/MIN Ammonia 42 MCMOL/L Administered Medications Medications (Trade) Dose Ordered Sig/Semaj Route PRN Reason Start Time Stop Time Status Last Admin Dose Admin Vitamin E (Vitamin E) 400 units DAILY PO 09/26/17 12:00 10/01/17 10:16 Sodium Chloride (NS Flush) 2 ml BID IV FLUSH 09/26/17 21:00 10/01/17 10:17 Chlorhexidine Gluconate (Peridex 0.12% Liq) 15 ml BID@08,20 MT 09/26/17 20:00 09/27/17 08:00 Rifaximin (Xifaxan) 550 mg BID PO 09/27/17 21:00 10/01/17 10:16 Lactulose (Lactulose Liq) 30 ml BID PO 09/29/17 21:00 09/30/17 20:42 Pantoprazole Sodium (Protonix) 40 mg Q12HR PO 09/29/17 21:00 10/01/17 10:16 Objective Remarks GENERAL: Older male resting in chair bedside in no obvious distress SKIN: Warm and dry. HEAD: Normocephalic. Bitemporal wasting EYES: No injection or drainage. NECK: Supple, trachea midline. CARDIOVASCULAR: Regular rate and rhythm without murmurs. RESPIRATORY: Clear anteriorly. Breathing unlabored at rest. GASTROINTESTINAL: Abdomen distended. NEUROLOGICAL: No obvious focal deficit. Awake, alert, and oriented x3. Assessment/Plan Problem List: (1) Liver mass ICD Codes: R16.0 - Hepatomegaly, not elsewhere classified Plan: 10/01/17: Plan for PET scan outpatient. Clear for discharge from oncology standpoint. -- Liver mass, either cholangiocarcinoma, but hepatocellular carcinoma cannot be ruled out, status post TACE procedure followed by radiofrequency ablation on two separate occasions. (2) Cirrhosis ICD Codes: K74.60 - Unspecified cirrhosis of liver Assessment 67y/o male with h/o alcoholic cirrhosis admitted with GI bleed. Oncology consulted for cholangiocarcinoma. HPI (brought forward from initial consult for continuity of care): patient found to have a liver mass in 2015 when he used to live in [place]. He had a biopsy which showed cholangiocarcinoma but hepatocellular carcinoma cannot be ruled out either. The CA 19-9 was elevated but the alpha-fetoprotein was normal. He had a TACE procedure and this was followed by radiofrequency ablation twice, the last one was in January of 2017. The patient subsequently moved to [place]. He was evaluated at [facility] last June for possible liver transplant. They did the work up and found that he is not a candidate for the liver transplant as he was found to have a new tumor in the liver. The patient was seen by Dr. Hanson in [facility]. pathology report from [place] states that this is a cholangiocarcinoma; however, hepatocellular carcinoma or other malignancies cannot be ruled out. patient will need to undergo another liver biopsy to find whether he has hepatocellular carcinoma or cholangiocarcinoma as the treatment is entirely different. The patient agreed with that. He was referred to the interventional radiologist about a [id number]-[id number]-half ago; however, the patient was hypotensive and had severe anemia. The patient had received blood transfusion but the procedure was deferred due to the severe hypotension. Patient was admitted to the hospital. 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 The patient had received multiple blood transfusions and he appears to have been stabilized. h/o Alcoholic cirrhosis. Hepatocellular carcinoma versus cholangiocarcinoma. Alcoholism. Hypertension. Diabetes mellitus. cirrhosis of the liver with esophageal varices. Attending Statement The exam, history, and the medical decision-making described in the above note were completed with the assistance of the mid-level provider. I reviewed and agree with the findings presented. I attest that I had a [id number] encounter with the patient on the same day, and personally performed and documented my assessment and findings in the medical record. Patient wants to go home Denies any new Complaints Okay to discharge home Patient will got a pet scan and then we'll decide about the biopsy Problem Qualifiers (1) Cirrhosis: Qualified Codes: K74.60 - Unspecified cirrhosis of liver Yoly Kauffman Oct 01, 2017 15:32 Selma Nixon MD Oct 01, 2017 21:44
--- NOTE | 2017-10-02 22:10 | HHI.DS ---
Discharge Summary Admission Date Sep 26, 2017 at 09:32 Discharge Date: Oct 01, 2017 Admitting Diagnosis GI bleed/anemia (1) Upper GI bleed Diagnosis: Principal ICD Codes: K92.2 - Gastrointestinal hemorrhage, unspecified (2) Anemia Diagnosis: Principal ICD Codes: D64.9 - Anemia, unspecified Status: Acute (3) Thrombocytopenia Diagnosis: Principal ICD Codes: D69.6 - Thrombocytopenia, unspecified Status: Acute (4) Hypotension Diagnosis: Principal ICD Codes: I95.9 - Hypotension, unspecified (5) Cirrhosis Diagnosis: Principal ICD Codes: K74.60 - Unspecified cirrhosis of liver Status: Chronic (6) Ascites Diagnosis: Secondary ICD Codes: R18.8 - Other ascites (7) Renal failure (ARF), acute on chronic Diagnosis: Secondary ICD Codes: N17.9 - Acute kidney failure, unspecified; N18.9 - Chronic kidney disease, unspecified Status: Chronic Consultants Gastroenterology Heme/Oncology, Dr Nixon Critical Care/Intensivists Nephrology Procedures EGD 09/27 preceded by intubation and sedation Paracentesis 09/27 and 10/01 Brief History Mr Faulkner is a 67-year-old male patient with history of esophageal varices, ascites from alcohol related cirrhosis, recent diagnosis of hepatic cancer suspected hepatocellular, following up with Dr. Nixon, presented to the ED with hematemesis. He was accompanied by his , who provides all of the history. Reports that he has been weak and dizziness for the last couple of days. Had 2x episodes of maroon-colored vomiting, reports he vomited up about 1 cup each time. His blood pressure was 80/44 at home last night, but patient refused to go to the hospital. This morning when he woke up, he felt lightheaded while sitting on the toilet and yanked the towel bar out of the wall to catch himself. The sound woke his up. was concerned and brought patient immediately to the hospital. reports that he had an appointment to get transfused today per Hematology, PET scan on Sunday, and liver biopsy next Sunday. Hemoglobin normally around mid 7s, lowest 3.7 per . He denies any abdominal pain, diarrhea, fevers, and melena. He had orthostatic sxs when he was on his feet which resulted in the fall in the bathroom. He became very hypotensive in the ED and required multiple boluses of normal saline to keep his pressures up and then had transfusions of blood, platelets and FFP. He needed to be intubated because of increased SOB yesterday afternoon. Unfortunately, with his poor liver function, he had ascites when he came to the hospital but it got worse with all his fluids. He had high volume paracentesis today with perhaps 10 liters removed. His blood pressures remained stable with albumin. His and the patient both did not want him "kept alive on machines" for any extended period of time. However, they did want a work up of his cancer and he had been on the liver transplant list until the cancer was found. He was very uncomfortable with his SOB and agreed to be intubated but not forever. Hopefully his paracentesis will allow him to breathe better and be extubated. His bleeding is under control and done today and he is s/p EGD. His renal function is baseline with a creatinine of about 3 but was on admission up to 4. " CBC/BMP: 10/01/17 1520 10/01/17 0935 Significant Findings Laboratory Tests Test 09/30/17 02:00 10/01/17 09:35 10/01/17 15:20 White Blood Count 2.1 TH/MM3 (4.0-11.0) 2.2 TH/MM3 (4.0-11.0) Red Blood Count 2.67 MIL/MM3 (4.50-5.90) 2.84 MIL/MM3 (4.50-5.90) Hemoglobin 8.5 GM/DL (13.0-17.0) 9.2 GM/DL (13.0-17.0) Hematocrit 24.3 % (39.0-51.0) 26.1 % (39.0-51.0) Red Cell Distribution Width 19.9 % (11.6-17.2) 19.6 % (11.6-17.2) Platelet Count 28 TH/MM3 (150-450) 23 TH/MM3 (150-450) 38 TH/MM3 (150-450) Blood Urea Nitrogen 66 MG/DL (7-18) 60 MG/DL (7-18) Creatinine 3.13 MG/DL (0.60-1.30) 3.07 MG/DL (0.60-1.30) Calcium Level 8.1 MG/DL (8.5-10.1) Chloride Level 109 MEQ/L (98-107) 108 MEQ/L (98-107) Estimat Glomerular Filtration Rate 20 ML/MIN (>89) 20 ML/MIN (>89) Ammonia 65 MCMOL/L (11-32) 42 MCMOL/L (11-32) Neutrophils (%) (Auto) 77.2 % (16.0-70.0) Lymphocytes (%) (Auto) 6.9 % (9.0-44.0) Monocytes (%) (Auto) 12.8 % (0.0-8.0) Neutrophils # (Auto) 1.7 TH/MM3 (1.8-7.7) Lymphocytes # (Auto) 0.2 TH/MM3 (1.0-4.8) Platelet Estimate LOW (NORMAL) Ovalocytes 1+ (NORMAL) Total Bilirubin 1.8 MG/DL (0.2-1.0) Imaging Last Impressions Chest X-Ray 09/29/17 0600 Signed Impressions: Service Date/Time: Friday, September 29, 2017 03:11 - CONCLUSION: Mild improvement in the aeration of the lungs. Marisela Looney MD Renal Ultrasound 09/27/17 0000 Signed Impressions: Service Date/Time: September 11:25 - CONCLUSION: Increased renal cortical echogenicity suggesting medical renal disease. No hydronephrosis. Reid Gardner MD PE at Discharge GENERAL: Alert, pale, somewhat cachectic male with distended abdomen lying in bed in no acute distress. SKIN: Pale and dry. Appropriate capillary refill. HEENT: Atraumatic, normocephalic with EOMI. Mucous membrane is moist. No rhinorrhea. No visible LAD or JVD appreciated. CARDIOVASCULAR: Regular rate and rhythm without murmurs, gallops, or rubs. 2+ pulses in all 4 extremities. RESPIRATORY: Clear to auscultation. Breath sounds equal bilaterally. No wheezes , rales, or rhonchi. GASTROINTESTINAL: ABD soft but distended with +BS. Ascites. No guarding or rebound. No masses appreciated. MUSCULOSKELETAL: Extremities without clubbing, cyanosis, or edema. No joint tenderness, effusion, or edema noted. NEUROLOGICAL: Afocal, AOx3. Patient able to move all 4 extremities spontaneously. CN II-XII grossly intact. Normal speech. Hospital Course Mr Faulkner is a pleasant 67YO male with cholangiocarcinoma vs hepatocellular carcinoma, alcoholic cirrhosis, past hx of esophageal varices and ascites who presented to the ED with hematemesis x5, hypotension, and anemia. Intensivists were consulted along with GI to address his hypotension, upper GI bleeding, thrombocytopenia and anemia. Hgb was 6.3 with Hct 17.7. Initial blood pressure was 82/53. Patient received crystalloid fluid boluses and was also ordered to receive 2 units PRBC, 2 units FFP, and 1 packed unit of platelet, platelet count 59. BUN/creat 96/4.34. Also, Octreotide infusion was started. Because he was hypotensive, the intensivists intubated and sedated the patient prior to the planned EGD. He was placed on pressor support as well. Dr Greenberg performed an EGD which found a grade 1 esophageal varice, portal gastropathy, and a bleeding AVM at the duodenal bulb which was cauterized to achieve hemostasis. No other GI bleed was noticed following the EGD. On 09/27 the intensivists performed a large volume paracentesis (10.3L). Pt received 1 unit FFP and 1 unit platelets and was extubated on 09/28 due to persistently low platelets. He was weaned off pressor support and then extubated on 09/29 and moved to the floor. He improved and worked with PT on 09/30 and was ready for discharge on 10/01 after receiving 1 unit platelets, a second paracentesis, and PT evaluation. He was stable, afebrile, and AOx3 on discharge. He plans to follow up with Dr Nixon for PET scan to evaluate his liver mass. Pt Condition on Discharge: Stable Discharge Disposition: Discharge Home Discharge Instructions DIET: Follow Instructions for: As Tolerated, No Restrictions Activities you can perform: Weight Bearing as Daily, See Additionl Instruction Other Activity Instructions: Out of bed with assistance Follow up Referrals: Oncology/Hematology - 1 Week with Selma Nixon MD PCP Follow-up - 1 Week SNF/[facility]/ with [facility] New Medications: Rifaximin (Xifaxan) 550 Mg Tab 550 MG PO BID, #60 TAB [Lactulose Liq] () 30 ML SYRP 30 ML PO BID, #1800 ML Continued Medications: Diphenhydramine HCl (Diphenhydramine HCl) 25 Mg Tablet 1 TAB PO HS Ergocalciferol (Vitamin D2) 2,000 Unit Tab 70054 UNITS PO DIRECTED for Nutritional Supplement, TAB 0 Refills M-W-F Melatonin (Melatonin) 5 Mg Tab 5 MG PO HS for Provide Good Sleep, TAB 0 Refills Pantoprazole (Protonix) 40 Mg Tab 40 MG PO BID for Reflux, #30 TAB 0 Refills Vitamin A (Vitamin A) 8,000 Unit Capsule 1 CAP PO DAILY Vitamin E (Vitamin E) 200 Unit Cap 400 UNITS PO DAILY for Nutritional Supplement, CAP 0 Refills Discontinued Medications: Lactulose Liq (Lactulose Liq) 10 Gm/15 Ml Soln 30 ML PO TID, ML 0 Refills Maxi Grier MD R1 Oct 02, 2017 22:10
--- NOTE | 2017-10-03 08:11 | RADRPT ---
EXAM DATE/TIME: 10/01/2017 16:01 [facility] COMPARISON: US KIDNEY/RENAL/BLADDER, September 27, 2017, 11:25. INDICATIONS : Ascites. MEDICAL HISTORY : Hypercholesterolemia. Cirrhosis. Coronary artery disease. HTN. Ulcer. Esophageal varices. Ascites. H ematemesis. GERD. Diabetes. SURGICAL HISTORY : Coronary artery stent. Lasik eye surgery. Cardiac cath. Paracentesis. Inguinal hernia. Right rotato r cuff. ENCOUNTER: Initial ACUITY: > 1 yr PAIN SCORE: 0/10 LOCATION: Right lower quadrant [place]: [place] [address] cc of cloudy, red fluid was removed. Fluid was discarded. Paracentesis was therapeutic only. Post procedure scanning reveals no hematoma or other complication. TECHNIQUE: 1. Ultrasound guidance for abdominal paracentesis. 2. Paracentesis. The risks, benefits, and alternatives to ultrasound guided paracentesis were explained to the patient in detail including the risk of bleeding and infection. Written and verbal informed consent was obt ained. With the patient on the ultrasound table, ultrasound imaging was used to select the most appropriate approach for paracentesis. Overlying skin was prepped and draped in the usual sterile fashion and wi th a local anesthetic, a dermatotomy was made with an 11 blade scalpel. A 6 Lao [id number] ca theter was introduced into the peritoneal cavity and fluid was collected. The patient tolerated the procedure well and left the ultrasound suite in stable condition. CONCLUSION: Uncomplicated ultrasound guided paracentesis. Danny Martínez MD on October 03, 2017 at 8:09 Board Certified Radiologist. This report was verified electronically.
[2017-10-05] MEDS ORDERED: ERGOCALCIFEROL (VIT D2) 50,000 UNIT CAP PO SCH (08:30)
== END 2017-10-01 19:09 | disposition home or self-care (01) | DRG 377 ==
LOC: NEPC 07:51 → NEDA 09:32 → HIMW 13:50 → N04A 09-29 13:41
PROVIDERS: ADMIT Family Medicine; ATTEND Family Medicine
PROC: 0BH17EZ Insertion of Endotracheal Airway into Trachea, Via Natural or Artificial Opening (ICD-10-PCS; 2017-09-26)
PROC: 5A1935Z Respiratory Ventilation, Less than 24 Consecutive Hours (ICD-10-PCS; 2017-09-26)
PROC: 30233K1 Transfusion of Nonautologous Frozen Plasma into Peripheral Vein, Percutaneous Approach (ICD-10-PCS; 2017-09-26)
PROC: 30233N1 Transfusion of Nonautologous Red Blood Cells into Peripheral Vein, Percutaneous Approach (ICD-10-PCS; 2017-09-26)
PROC: 02HV33Z Insertion of Infusion Device into Superior Vena Cava, Percutaneous Approach (ICD-10-PCS; 2017-09-26)
PROC: B544ZZA Ultrasonography of Left Jugular Veins, Guidance (ICD-10-PCS; 2017-09-26)
PROC: 0W3P8ZZ Control Bleeding in Gastrointestinal Tract, Via Natural or Artificial Opening Endoscopic (ICD-10-PCS; principal; 2017-09-26 17:30)
PROC: 30233R1 Transfusion of Nonautologous Platelets into Peripheral Vein, Percutaneous Approach (ICD-10-PCS; 2017-09-27)
PROC: 0W9G3ZZ Drainage of Peritoneal Cavity, Percutaneous Approach (ICD-10-PCS; 2017-09-27)
PROC: 0W9G3ZZ Drainage of Peritoneal Cavity, Percutaneous Approach (ICD-10-PCS; 2017-10-01)
DX: K31.811 Angiodysplasia of stomach and duodenum with bleeding (principal); N17.0 Acute kidney failure with tubular necrosis; J96.90 Respiratory failure, unspecified, unspecified whether with hypoxia or hypercapnia; R57.9 Shock, unspecified; D68.9 Coagulation defect, unspecified; C22.1 Intrahepatic bile duct carcinoma; E87.2 Acidosis; N18.3 Chronic kidney disease, stage 3 (moderate); E11.22 Type 2 diabetes mellitus with diabetic chronic kidney disease; D69.6 Thrombocytopenia, unspecified; I85.00 Esophageal varices without bleeding; K31.89 Other diseases of stomach and duodenum; K72.90 Hepatic failure, unspecified without coma; K70.31 Alcoholic cirrhosis of liver with ascites; I85.10 Secondary esophageal varices without bleeding; I25.10 Atherosclerotic heart disease of native coronary artery without angina pectoris; K21.9 Gastro-esophageal reflux disease without esophagitis; I12.9 Hypertensive chronic kidney disease with stage 1 through stage 4 chronic kidney disease, or unspecified chronic kidney disease; D50.0 Iron deficiency anemia secondary to blood loss (chronic); R19.7 Diarrhea, unspecified; F10.21 Alcohol dependence, in remission; F12.90 Cannabis use, unspecified, uncomplicated; Z66 Do not resuscitate; Z80.52 Family history of malignant neoplasm of bladder; Z87.891 Personal history of nicotine dependence; Z90.5 Acquired absence of kidney; Z95.5 Presence of coronary angioplasty implant and graft
CPT/HCPCS: 31500; 36430; 36556; 36600; 43270; 49082; 49083; 71045; 76775; 76937; 80048; 80053; 81001; 82042; 82140; 82150; 82805; 82945; 83615; 83690; 83735; 83935; 84100; 84155; 84157; 84300; 85007; 85014; 85018; 85025; 85027; 85049; 85384; 85610; 85730; 86850; 86900; 86901; 86920; 86927; 87070; 87086; 87205; 87641; 88112; 89051; 93005; 94002; 94003; 94150; 96361; 96374; 96375; C1729; C9113; J0696; J2250; J2354; J2405; J3430; J7030; J7040; J7050; P9016; P9017; P9031; P9035; P9047